=== PATIENT | male | born 1935 | race African-American/Black ===

== ENCOUNTER 2018-10-19 14:59 | Inpatient (IN) | payer MEDICARE, OTHER ==
[~2018-10-19] VITALS: Ht 172.7 cm; Wt 53.5 kg
[~2018-10-19 14:59] MED LIST: UNOBMED
--- NOTE | 2018-10-19 15:09 | Emergency Room Report ---
History of Present Illness General Chief Complaint: Syncope Source: Family Member, EMS Present Illness HPI Patient presents with altered mental status. Apparently his baseline is much more active than today. He was out walking on his own. There is no suggestion of any trauma. The patient states he is thirsty. It's unknown whether he ingested any other substances. His glucose in the field was 115. The patient was with his family and they're not here. Family here and they stated that he's had 2 episodes like this in the past. He was hospitalized in July and September. Both times he was dehydrated but also had elevated troponin with normal renal function. There were talking about doing catheterization and stent but the decided not to because of his age. The patient's on Seroquel and the dose has not changed for the last 2 months. Hospitalized last year for lower GI bleed. He was taking 2 baby aspirins at that time. He was reduced to 1 after that. They state difficult to get him to take oral intake. The last time they knowing moved his bowels was on Saturday but uncertain if it's been more than that. Patient hasn't an occasional cough but no vomiting. He has a foul odor to his urine but when they checked his urine it's usually clear. History of hypertension History of atrial fibrillation - He is on aspirin. There were considering Pradaxa or Coumadin but he is a fall risk and so they've kept him on aspirin only. History of reflux. Taking omeprazole Allergies: Coded Allergies: PENICILLINS (Verified Allergy, Unknown, 01/30/16) Uncoded Allergies: PENICLLINS (Allergy, Unknown, 10/19/18) Patient History Limited by: medical condition Past Medical History: see triage record, old chart reviewed - 2015 Social History: Denies: smoking, alcohol use, drug use Social History Narrative lives with family Reviewed Nursing Documentation: PMH: Agreed; PSxH: Agreed Nursing Documentation-PM Past Medical History: No History, Except For Hx Cardiac Problems: Yes Hx Hypertension: Yes History Of Psychiatric Problem: Yes Hx Neurological Problems: Yes - Dementia Hx Cerebrovascular Accident: Yes Review of Systems All Other Systems: limited Physical Exam Vital Signs Date Time Temp Pulse Resp B/P (MAP) Pulse Ox O2 Delivery O2 Flow Rate FiO2 10/19/18 14:55 96.4 65 14 106/52 95 Room Air Sp02 EP Interpretation: reviewed, normal General Appearance: well appearing, no apparent distress, other - GCS 13 Head: normocephalic Eyes: bilateral eye normal inspection, bilateral eye PERRL ENT: dry mucus membranes Neck: supple Respiratory: lungs clear, normal breath sounds Cardiovascular #1: regular rate, rhythm Cardiovascular #2: 2+ radial (R) Gastrointestinal: normal inspection, normal bowel sounds, non tender, no mass, non-distended Musculoskeletal: back normal, normal range of motion Neurologic: responsive, DTRs symmetric, sensory intact, motor weakness - All 4 Psychiatric: depressed affect Skin: normal inspection - Slightly pale, warm/dry Medical Decision Making Diagnostic Impression: Primary Impression: Altered mental status Qualified Codes: R40.1 - Stupor Additional Impressions: Renal insufficiency Dehydration Elevated troponin ER Course Patient presents with altered mental status with decreased mentation from baseline. Differential includes dehydration, occult infection, ingestion of other substances, electrolyte imbalance, brain bleed amongst others. Evaluation will be with EKG, chest x-ray, CT of the head and labs. The patient appears dehydrated and will receive IV hydration. 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 EKG NSR no acute changes. CXR neg. CT with 2 prior infarcts. Called with minimally elevated troponin. Aspirin ordered. Normal WBC. Elevated BUN creat. UA clear. Improved with IV hydration. Admit tele Dr. Garcia. Laboratory Tests Test 10/19/18 15:00 10/19/18 15:25 White Blood Count 3.6 K/UL (4.8-10.8) L Red Blood Count 4.90 M/UL (4.70-6.10) Hemoglobin 11.6 G/DL (14.2-18.0) L Hematocrit 37.9 % (42.0-52.0) L Mean Corpuscular Volume 77 FL (80-99) L Mean Corpuscular Hemoglobin 23.7 PG (27.0-31.0) L Mean Corpuscular Hemoglobin Concent 30.6 G/DL (32.0-36.0) L Red Cell Distribution Width 13.8 % (11.6-14.8) Platelet Count 124 K/UL (150-450) L Mean Platelet Volume 10.9 FL (6.5-10.1) H Neutrophils (%) (Auto) 41.7 % (45.0-75.0) L Lymphocytes (%) (Auto) 47.4 % (20.0-45.0) H Monocytes (%) (Auto) 8.2 % (1.0-10.0) Eosinophils (%) (Auto) 1.8 % (0.0-3.0) Basophils (%) (Auto) 0.9 % (0.0-2.0) Sodium Level 143 MMOL/L (136-145) Potassium Level 4.3 MMOL/L (3.5-5.1) Chloride Level 106 MMOL/L (98-107) Carbon Dioxide Level 32 MMOL/L (21-32) Anion Gap 5 mmol/L (5-15) Blood Urea Nitrogen 30 mg/dL (7-18) H Creatinine 1.7 MG/DL (0.55-1.30) H Estimate Glomerular Filtration Rate mL/min (>60) Glucose Level 116 MG/DL (74-106) H Lactic Acid Level 1.60 mmol/L (0.4-2.0) Calcium Level 9.6 MG/DL (8.5-10.1) Total Bilirubin 0.3 MG/DL (0.2-1.0) Aspartate Amino Transferase (AST) 15 U/L (15-37) Alanine Aminotransferase (ALT) 25 U/L (12-78) Alkaline Phosphatase 77 U/L (46-116) Ammonia 12 umol/L (11-32) Total Creatine Kinase 68 U/L (26-308) Troponin I 0.091 ng/mL (0.000-0.056) Total Protein 7.1 G/DL (6.4-8.2) Albumin 3.6 G/DL (3.4-5.0) Globulin 3.5 g/dL Albumin/Globulin Ratio 1.0 (1.0-2.7) Thyroid Stimulating Hormone (TSH) 0.939 uiU/mL (0.358-3.740) Acetaminophen Level < 2 MCG/ML (10-30) L Serum Alcohol < 3 mg/dL Urine Color Yellow Urine Appearance Clear Urine pH 5 (4.5-8.0) Urine Specific [place] 1.020 (1.005-1.035) Urine Protein 1+ (NEGATIVE) H Urine Glucose (UA) Negative (NEGATIVE) Urine Ketones Negative (NEGATIVE) Urine Blood Negative (NEGATIVE) Urine Nitrite Negative (NEGATIVE) Urine Bilirubin Negative (NEGATIVE) Urine Urobilinogen Normal MG/DL (0.0-1.0) Urine Leukocyte Esterase Negative (NEGATIVE) Urine RBC 0-2 /HPF (0 - 0) H Urine WBC 2-4 /HPF (0 - 0) Urine Squamous Epithelial Cells None /LPF (NONE/OCC) Urine Bacteria Few /HPF (NONE) Urine Fine Granular Casts 2-4 /LPF (NONE) H Urine Osmolality Pending Urine Random Sodium 85 mmol/L (20-110) Urine Creatinine 226.5 MG/DL (30.0-125.0) H Urine Opiates Screen Negative (NEGATIVE) Urine Barbiturates Screen Negative (NEGATIVE) Phencyclidine (PCP) Screen Negative (NEGATIVE) Urine Amphetamines Screen Negative (NEGATIVE) Urine Benzodiazepines Screen Negative (NEGATIVE) Urine Cocaine Screen Negative (NEGATIVE) Urine Marijuana (THC) Screen Negative (NEGATIVE) EKG Diagnostic Results Rate: normal Rhythm: NSR ST Segments: no acute changes ASA given to the pt in ED: Yes Rhythm Strip Diag. Results EP Interpretation: yes Rhythm: NSR, no PVC's, no ectopy Chest X-Ray Diagnostic Results Chest X-Ray Diagnostic Results : Chest X-Ray Ordered: Yes # of Views/Limited/Complete: 1 View Indication: Other EP Interpretation: Yes Interpretation: no consolidation, no effusion, no pneumothorax Impression: No acute disease Electronically Signed by: Electronically signed by Feng Elias MD CT/MRI/US Diagnostic Results CT/MRI/US Diagnostic Results : Imaging Test Ordered: head Impression R frontal and occipital strokes Last Vital Signs Date Time Temp Pulse Resp B/P (MAP) Pulse Ox O2 Delivery O2 Flow Rate FiO2 10/20/18 00:00 97.8 71 20 120/62 (81) 98 10/19/18 21:00 Room Air 10/19/18 20:41 21 Status: improved Disposition: ADMITTED INPATIENT Condition: Serious Feng Elias MD Oct 19, 2018 15:09
[2018-10-19 15:12] VITALS: BP 109/46
--- NOTE | 2018-10-19 15:15 | NUR ---
ED Nurse Note:pt. was BIBA from home with syncopal episode, no fall or head injury was reported, pt. is A/Ox1 not able to ambulate at this time, hx of dementia, blood was sent to labs, IV fluids administered
--- NOTE | 2018-10-19 15:27 | NUR ---
ED Nurse Note:urine sent to labs
[2018-10-19] MEDS ORDERED: ASPIRIN81 MG ORAL (15:32)
[2018-10-19] MEDS ORDERED: LISINOPRIL20 MG ORAL (15:32)
[2018-10-19] MEDS ORDERED: SEROQUEL100 MG ORAL (15:32)
[2018-10-19] MEDS ORDERED: CELEXA20 MG ORAL (15:32)
[2018-10-19] MEDS ORDERED: SEROQUEL25 MG ORAL (15:32)
[2018-10-19] MEDS ORDERED: AMLODIPINE BESYL5 MG ORAL (15:32)
[2018-10-19] MEDS ORDERED: PRILOSEC OTC20 MG ORAL (15:32)
[2018-10-19] MEDS ORDERED: MULTIVITAMINS1 EAC2 ORAL (15:32)
[2018-10-19] MEDS ORDERED: ZYRTEC10 MG ORAL (15:32)
[2018-10-19 15:41] LABS: BASOPHILS % (AUTO) 0.9 % (0.0-2.0); EOSINOPHILS % (AUTO) 1.8 % (0.0-3.0); HEMATOCRIT 37.9 % (42.0-52.0); HEMOGLOBIN 11.6 G/DL (14.2-18.0); LYMPHOCYTES % (AUTO) 47.4 % (20.0-45.0); MEAN CORPUSCULAR VOLUME 77 FL (80-99); MONOCYTES % (AUTO) 8.2 % (1.0-10.0); NEUTROPHILS % (AUTO) 41.7 % (45.0-75.0); PLATELET COUNT 124 K/UL (150-450); RED CELL DISTRIBUTION WIDTH 13.8 % (11.6-14.8); WHITE BLOOD COUNT 3.6 K/UL (4.8-10.8)
[2018-10-19 15:57] LABS: APPEARANCE,URINE CLEAR; BILIRUBIN, URINE NEGATIVE (NEGATIVE); GLUCOSE, URINE (UA) NEGATIVE (NEGATIVE); KETONES,URINE NEGATIVE (NEGATIVE); LEUKOCYTE ESTERASE ,URINE NEGATIVE (NEGATIVE); NITRITE,URINE NEGATIVE (NEGATIVE); PH,URINE 5 (4.5-8.0); PROTEIN,URINE 1+ (NEGATIVE); UROBILINOGEN,URINE NORMAL MG/DL (0.0-1.0)
[2018-10-19 15:59] LABS: COLOR,URINE YELLOW
[2018-10-19 16:05] LABS: ANION GAP 5 mmol/L (5-15); BLOOD UREA NITROGEN 30 mg/dL (7-18); CALCIUM 9.6 MG/DL (8.5-10.1); CARBON DIOXIDE 32 MMOL/L (21-32); CHLORIDE 106 MMOL/L (98-107); CREATININE 1.7 MG/DL (0.55-1.30); POTASSIUM 4.3 MMOL/L (3.5-5.1); SODIUM 143 MMOL/L (136-145)
[2018-10-19 16:07] LABS: AMMONIA 12 umol/L (11-32)
[2018-10-19 16:20] LABS: ALANINE AMINOTRANSFERASE 25 U/L (12-78); ALBUMIN 3.6 G/DL (3.4-5.0); ALKALINE PHOSPHATASE 77 U/L (46-116); ASPARTATE AMINO TRANSFERASE 15 U/L (15-37); BILIRUBIN,TOTAL 0.3 MG/DL (0.2-1.0); CREATINE KINASE 68 U/L (26-308)
[2018-10-19 17:34] VITALS: BP 126/69
--- NOTE | 2018-10-19 17:36 | NUR ---
ED Nurse Note:called report to tele pt. Danica was taken to tele
[2018-10-19] MEDS ORDERED: Albuterol/Ipratropium 3ml neb HHN PRN (18:00)
[2018-10-19] MEDS ORDERED: Nitroglycerin Subl 0.4mg tab SL PRN (18:00)
[2018-10-19] MEDS ORDERED: LORazepam Inj 2mg/ml 1ml IV PRN (18:00)
[2018-10-19] MEDS ORDERED: Morphine Sulfate 2mg/ml Inj(IV/IM USE ONLY) IVP PRN (18:00)
[2018-10-19] MEDS ORDERED: Miralax 17gm pkt ORAL PRN (18:00)
[2018-10-19] MEDS ORDERED: Mylanta II UD 30ml ORAL PRN (18:00)
[2018-10-19] MEDS ORDERED: Promethazine/Codeine 5ml UD ORAL PRN (18:00)
--- NOTE | 2018-10-19 18:09 | NUR ---
NURSE NOTES: received patient report from ruth rn from er. patient came in via gurney. with family members. per family member patient is confused and was trying to get off the bed and requested a room by the station. gambling monitor initiated. Iv line noted on the R AC. noted skin is intact. no belongings found. sent home. under the care of dr primo clark. will continue plan of care.
--- NOTE | 2018-10-19 18:15 | NUR ---
NURSE NOTES: letf a message to dr mendez regarding seroquel. per family member currently patient is taking seroquel 100mg AM, 50mg lunchtime and 100mg at night. family member also requesting that no caffeine, no crackers, no toast, no crumbly food should be given to patient.will inform MD.
[2018-10-19] MEDS: D5 1/2NS 1,000 ML IV SCH (18:17)
[2018-10-19 18:25] VITALS: BP 127/75
--- NOTE | 2018-10-19 19:31 | NUR ---
HAND-OFF: Report given to yu ly.
--- NOTE | 2018-10-19 19:47 | NUR ---
NURSE NOTES: RECEIVED PATIENT RESTING IN BED, NO COMPLAINTS OF PAIN AT THIS TIME. FALL AND ASPIRATION PRECAUTIONS IN PLACE: CALL LIGHT AND BEDSIDE TABLE WITHIN REACH, BED IN LOW POSITION AND BED ALARM ON, HOB ELEVATED. WILL CONTINUE WITH PLAN OF CARE.
[2018-10-19 20:00] VITALS: BP 127/74
[2018-10-19] MEDS: Heparin 5000 units/ml inj SUBQ SCH (21:36)
[2018-10-20] VITALS: BP 120/62
[2018-10-20 04:00] VITALS: BP 121/63
[2018-10-20 07:34] LABS: HEMOGLOBIN 10.6 G/DL (14.2-18.0); MEAN CORPUSCULAR VOLUME 78 FL (80-99); PLATELET COUNT 114 K/UL (150-450); RED BLOOD COUNT 4.38 M/UL (4.70-6.10); RED CELL DISTRIBUTION WIDTH 13.9 % (11.6-14.8); WHITE BLOOD COUNT 3.9 K/UL (4.8-10.8)
[2018-10-20 07:35] LABS: INR 1.1 (0.9-1.1)
--- NOTE | 2018-10-20 07:40 | NUR ---
HAND-OFF: Report given to CHRISTOPHE ANGEL. PATIENT RESTING IN BED, NO SIGNS OF DISTRESS NOTED.
--- NOTE | 2018-10-20 07:49 | NUR ---
NURSE NOTES: Received patient and report from CHRISTOPHE Nascimento in bed. Patient appears to be confused, reoriented patient. Patient is alert and oriented x2. IV is intact and patent and very positional, fluids running at 50cc/hr. Bed is in lowest position and brakes engaged for safety. Bedside rails on x3. Will continue with the plan of care.
[2018-10-20 07:50] LABS: ALANINE AMINOTRANSFERASE 22 U/L (12-78); ALBUMIN 3.1 G/DL (3.4-5.0); ALKALINE PHOSPHATASE 69 U/L (46-116); ANION GAP 6 mmol/L (5-15); ASPARTATE AMINO TRANSFERASE 15 U/L (15-37); BILIRUBIN,TOTAL 0.3 MG/DL (0.2-1.0); BLOOD UREA NITROGEN 21 mg/dL (7-18); CALCIUM 9.1 MG/DL (8.5-10.1); CARBON DIOXIDE 30 MMOL/L (21-32); CHLORIDE 109 MMOL/L (98-107); CHOLESTEROL 126 MG/DL (< 200); CREATININE 1.2 MG/DL (0.55-1.30); HDL CHOLESTEROL 54 MG/DL (40-60); POTASSIUM 4.6 MMOL/L (3.5-5.1); SODIUM 145 MMOL/L (136-145); TRIGLYCERIDES 53 MG/DL (30-150)
--- NOTE | 2018-10-20 07:57 | NUR ---
CASE MANAGEMENT:REVIEW 83 YR OLD MALE BIBA FROM [facility]; witnessed syncopal episode SI: AMS. RENAL INSUFF. DEHYDRATION ELEVATED TROPONIN 96.5 65 14 106/52 95% RA PLT-124 BRANDIE+30 CR+1.7 TROPONIN(+) 0.091 IS: 1L NS BOLUS ASA IN CT HEAD CXR ; TO TELEMETRY IS: NORVASC PO QD ASA PO QD LISINOPRIL PO QD HEPARIN SQ Q12 IVF@50/HR PLAN: CAROTID DUPLEX VENOUS DUPLEX 2DECHO INTERQUAL CRITERIA MET
[2018-10-20 08:00] VITALS: BP 136/74
[2018-10-20 08:01] LABS: AMMONIA 21 umol/L (11-32)
[2018-10-20] MEDS: Heparin 5000 units/ml inj SUBQ SCH ×2 (08:12→20:39)
[2018-10-20] MEDS: Lisinopril 20mg tab ORAL SCH (08:13)
[2018-10-20] MEDS: Aspirin Baby 81mg ORAL SCH (08:13)
[2018-10-20] MEDS: Citalopram Hydrobromide 10mg Tab ORAL SCH (08:13)
--- NOTE | 2018-10-20 10:40 | Consultation ---
History of Present Illness General Date patient seen: Oct 20, 2018 Chief Complaint: Syncope Reason for Consultation: inpatient management Present Illness HPI 83 year old male with hx of Afib, CAD, recent HI, refused coronary Stent, with hx of GI bleeding, brought in by paramedics with [facility] of [facility]. Pt had had an syncopal episode while sitting and regained his consciousness slowly. His troponin was elevated and he is admitted to telemetry for further management. Allergies: Coded Allergies: PENICILLINS (Verified Allergy, Unknown, 01/30/16) Uncoded Allergies: PENICLLINS (Allergy, Unknown, 10/19/18) Medication History Scheduled Amlodipine Besylate* (Amlodipine Besylate*), 5 MG ORAL DAILY, (Reported) Aspirin* (Aspirin*), 81 MG ORAL DAILY, (Reported) Cetirizine Hcl* (Zyrtec*), 10 MG ORAL DAILY, (Reported) Citalopram Hydrobromide* (Celexa*), 20 MG ORAL DAILY, (Reported) Lisinopril (Lisinopril*), 20 MG ORAL DAILY, (Reported) Multivitamins* (Multivitamins*), 1 TAB ORAL DAILY, (Reported) Omeprazole Magnesium (Prilosec Otc), 20 MG ORAL DAILY, (Reported) Quetiapine Fumarate* (Seroquel*), 100 MG ORAL TWICE A DAY, (Reported) Quetiapine Fumarate* (Seroquel*), 50 MG ORAL DAILY, (Reported) Miscellaneous Medications Unable to Obtain Medications (Unable To Obtain Meds), (Reported) Patient History Healthcare decision maker Resuscitation status Full Code Advanced Directive on File No Past Medical/Surgical History Past Medical/Surgical History: (1) ATN (acute tubular necrosis) (2) Advanced dementia Review of Systems All Other Systems: negative except mentioned in HPI Physical Exam General Appearance: WD/WN, no apparent distress Lines, tubes and drains: peripheral HEENT: normocephalic, atraumatic Neck: non-tender, normal alignment Respiratory/Chest: chest wall non-tender, lungs clear Breasts: no masses Cardiovascular/Chest: normal peripheral pulses Abdomen: normal bowel sounds, non tender Genitourinary/Rectal: normal genital exam Extremities: normal range of motion Last 24 Hour Vital Signs Date Time Temp Pulse Resp B/P (MAP) Pulse Ox O2 Delivery O2 Flow Rate FiO2 10/20/18 09:00 Room Air 10/20/18 08:14 75 136/74 10/20/18 08:13 136/74 10/20/18 08:00 97.6 75 20 136/74 (94) 99 10/20/18 08:00 70 10/20/18 04:00 65 10/20/18 04:00 98.1 68 20 121/63 (82) 97 10/20/18 00:00 97.8 71 20 120/62 (81) 98 10/20/18 00:00 69 10/19/18 21:00 Room Air 10/19/18 20:41 73 16 Room Air 21 10/19/18 20:00 98.0 89 20 127/74 (91) 97 10/19/18 20:00 77 10/19/18 18:42 Room Air 10/19/18 18:25 97.1 89 127/75 (92) 10/19/18 17:34 79 15 126/69 100 Room Air 10/19/18 17:34 79 17 109/46 97 Room Air 10/19/18 15:12 69 17 109/46 97 Room Air 10/19/18 14:55 96.4 65 14 106/52 95 Room Air Intake and Output 10/19/18 10/20/18 19:00 07:00 Intake Total 10 ml 600 ml Output Total 600 ml Balance 10 ml 0 ml Intake IV Total 10 ml 600 ml Output Urine Total 600 ml # Voids 1 3 # Bowel Movements 1 Laboratory Tests Test 10/19/18 15:00 10/19/18 15:25 10/20/18 06:50 White Blood Count 3.6 K/UL (4.8-10.8) L 3.9 K/UL (4.8-10.8) L Red Blood Count 4.90 M/UL (4.70-6.10) 4.38 M/UL (4.70-6.10) L Hemoglobin 11.6 G/DL (14.2-18.0) L 10.6 G/DL (14.2-18.0) L Hematocrit 37.9 % (42.0-52.0) L 34.0 % (42.0-52.0) L Mean Corpuscular Volume 77 FL (80-99) L 78 FL (80-99) L Mean Corpuscular Hemoglobin 23.7 PG (27.0-31.0) L 24.2 PG (27.0-31.0) L Mean Corpuscular Hemoglobin Concent 30.6 G/DL (32.0-36.0) L 31.1 G/DL (32.0-36.0) L Red Cell Distribution Width 13.8 % (11.6-14.8) 13.9 % (11.6-14.8) Platelet Count 124 K/UL (150-450) L 114 K/UL (150-450) L Mean Platelet Volume 10.9 FL (6.5-10.1) H 9.7 FL (6.5-10.1) Neutrophils (%) (Auto) 41.7 % (45.0-75.0) L % (45.0-75.0) Lymphocytes (%) (Auto) 47.4 % (20.0-45.0) H % (20.0-45.0) Monocytes (%) (Auto) 8.2 % (1.0-10.0) % (1.0-10.0) Eosinophils (%) (Auto) 1.8 % (0.0-3.0) % (0.0-3.0) Basophils (%) (Auto) 0.9 % (0.0-2.0) % (0.0-2.0) Sodium Level 143 MMOL/L (136-145) 145 MMOL/L (136-145) Potassium Level 4.3 MMOL/L (3.5-5.1) 4.6 MMOL/L (3.5-5.1) Chloride Level 106 MMOL/L (98-107) 109 MMOL/L (98-107) H Carbon Dioxide Level 32 MMOL/L (21-32) 30 MMOL/L (21-32) Anion Gap 5 mmol/L (5-15) 6 mmol/L (5-15) Blood Urea Nitrogen 30 mg/dL (7-18) H 21 mg/dL (7-18) H Creatinine 1.7 MG/DL (0.55-1.30) H 1.2 MG/DL (0.55-1.30) Estimat Glomerular Filtration Rate mL/min (>60) mL/min (>60) Glucose Level 116 MG/DL (74-106) H 78 MG/DL (74-106) Lactic Acid Level 1.60 mmol/L (0.4-2.0) Calcium Level 9.6 MG/DL (8.5-10.1) 9.1 MG/DL (8.5-10.1) Total Bilirubin 0.3 MG/DL (0.2-1.0) 0.3 MG/DL (0.2-1.0) Aspartate Amino Transf (AST/SGOT) 15 U/L (15-37) 15 U/L (15-37) Alanine Aminotransferase (ALT/SGPT) 25 U/L (12-78) 22 U/L (12-78) Alkaline Phosphatase 77 U/L (46-116) 69 U/L (46-116) Ammonia 12 umol/L (11-32) 21 umol/L (11-32) Total Creatine Kinase 68 U/L (26-308) Troponin I 0.091 ng/mL (0.000-0.056) Total Protein 7.1 G/DL (6.4-8.2) 6.3 G/DL (6.4-8.2) L Albumin 3.6 G/DL (3.4-5.0) 3.1 G/DL (3.4-5.0) L Globulin 3.5 g/dL 3.2 g/dL Albumin/Globulin Ratio 1.0 (1.0-2.7) 1.0 (1.0-2.7) Thyroid Stimulating Hormone (TSH) 0.939 uiU/mL (0.358-3.740) 0.664 uiU/mL (0.358-3.740) Acetaminophen Level < 2 MCG/ML (10-30) L Serum Alcohol < 3 mg/dL Urine Color Yellow Urine Appearance Clear Urine pH 5 (4.5-8.0) Urine Specific [place] 1.020 (1.005-1.035) Urine Protein 1+ (NEGATIVE) H Urine Glucose (UA) Negative (NEGATIVE) Urine Ketones Negative (NEGATIVE) Urine Blood Negative (NEGATIVE) Urine Nitrite Negative (NEGATIVE) Urine Bilirubin Negative (NEGATIVE) Urine Urobilinogen Normal MG/DL (0.0-1.0) Urine Leukocyte Esterase Negative (NEGATIVE) Urine RBC 0-2 /HPF (0 - 0) H Urine WBC 2-4 /HPF (0 - 0) Urine Squamous Epithelial Cells None /LPF (NONE/OCC) Urine Bacteria Few /HPF (NONE) Urine Fine Granular Casts 2-4 /LPF (NONE) H Urine Osmolality 846 mOsm/kg (429-449) H Urine Random Sodium 85 mmol/L (20-110) Urine Creatinine 226.5 MG/DL (30.0-125.0) H Urine Opiates Screen Negative (NEGATIVE) Urine Barbiturates Screen Negative (NEGATIVE) Phencyclidine (PCP) Screen Negative (NEGATIVE) Urine Amphetamines Screen Negative (NEGATIVE) Urine Benzodiazepines Screen Negative (NEGATIVE) Urine Cocaine Screen Negative (NEGATIVE) Urine Marijuana (THC) Screen Negative (NEGATIVE) Differential Total Cells Counted 100 Neutrophils % (Manual) 54 % (45-75) Lymphocytes % (Manual) 40 % (20-45) Monocytes % (Manual) 4 % (1-10) Eosinophils % (Manual) 2 % (0-3) Basophils % (Manual) 0 % (0-2) Band Neutrophils 0 % (0-8) Platelet Estimate Decreased L Platelet Morphology Normal Hypochromasia 1+ Prothrombin Time 11.7 SEC (9.30-11.50) H Prothromb Time International Ratio 1.1 (0.9-1.1) Activated Partial Thromboplast Time 29 SEC (23-33) Triglycerides Level 53 MG/DL (30-150) Cholesterol Level 126 MG/DL (< 200) LDL Cholesterol 65 mg/dL (<100) HDL Cholesterol 54 MG/DL (40-60) Cholesterol/HDL Ratio 2.3 (3.3-4.4) L Height (Feet): 5 Height (Inches): 8.00 Weight (Pounds): 140 Medications Current Medications Medications (Trade) Dose Ordered Sig/Lea Route PRN Reason Start Time Stop Time Status Last Admin Dose Admin Acetaminophen (Tylenol) 650 mg Q4H PRN ORAL fever 10/19/18 18:00 11/18/18 17:59 Al Hydroxide/Mg Hydroxide (Mylanta II) 30 ml Q6H PRN ORAL dyspepsia 10/19/18 18:00 11/18/18 17:59 Albuterol/ Ipratropium (Albuterol/ Ipratropium) 3 ml Q4H PRN HHN Shortness of Breath 10/19/18 18:00 10/24/18 17:59 Amlodipine Besylate (Norvasc) 5 mg DAILY ORAL 10/20/18 09:00 11/19/18 08:59 10/20/18 08:14 Aspirin (ASA) 81 mg DAILY ORAL 10/20/18 09:00 11/19/18 08:59 10/20/18 08:13 Citalopram Hydrobromide (celeXA) 20 mg DAILY ORAL 10/20/18 09:00 11/19/18 08:59 10/20/18 08:13 Clonidine HCl (Catapres Tab) 0.1 mg Q4H PRN ORAL For High Blood Pressure 10/19/18 18:00 11/18/18 17:59 Dextrose (Dextrose 50%) 25 ml Q30M PRN IV Hypoglycemia 10/19/18 18:00 11/18/18 17:59 Dextrose (Dextrose 50%) 50 ml Q30M PRN IV Hypoglycemia 10/19/18 18:00 11/18/18 17:59 Dextrose/Sodium Chloride 1,000 ml @ 50 mls/hr Q20H IV 10/19/18 17:54 11/18/18 17:53 10/19/18 18:17 Heparin Sodium (Porcine) (Heparin 5000 units/ml) 5,000 units EVERY 12 HOURS SUBQ 10/19/18 21:00 11/18/18 20:59 10/19/18 21:36 Lisinopril (Prinivil) 20 mg DAILY ORAL 10/20/18 09:00 11/19/18 08:59 10/20/18 08:13 Lorazepam (Ativan 2mg/ml 1ml) 0.5 mg Q4H PRN IV For Anxiety 10/19/18 18:00 10/26/18 17:59 Morphine Sulfate (Morphine Sulfate) 1 mg Q4H PRN IVP For Pain 7-10 10/19/18 18:00 10/26/18 17:59 Nitroglycerin (Ntg) 0.4 mg Q5M X 3 DOSES PRN SL Prn Chest Pain 10/19/18 18:00 11/18/18 17:59 Ondansetron HCl (Zofran) 4 mg Q6H PRN IVP Nausea & Vomiting 10/19/18 18:00 11/18/18 17:59 Polyethylene Glycol (Miralax) 17 gm HSPRN PRN ORAL Constipation 10/19/18 18:00 11/18/18 17:59 Promethazine HCl/ Codeine (Phenergan with Codeine) 5 ml Q4H PRN ORAL For Cough 10/19/18 18:00 11/18/18 17:59 Quetiapine Fumarate (SEROquel) 50 mg QLUNCH ORAL 10/20/18 11:30 11/19/18 11:29 Quetiapine Fumarate (SEROquel) 100 mg BID ORAL 10/19/18 20:02 11/18/18 20:01 10/20/18 08:13 Temazepam (Restoril) 15 mg HSPRN PRN ORAL Insomnia 10/19/18 18:00 10/26/18 17:59 Assessment/Plan Problem List: (1) NSTEMI (non-ST elevated myocardial infarction) ICD Codes: I21.4 - Non-ST elevation (NSTEMI) myocardial infarction SNOMED: 42512510, 079568702 (2) Protein-calorie malnutrition, severe ICD Codes: E43 - Unspecified severe protein-calorie malnutrition SNOMED: 385105766, 541635866, 305945616 (3) ATN (acute tubular necrosis) ICD Codes: N17.0 - Acute kidney failure with tubular necrosis SNOMED: 19099441 (4) Advanced dementia ICD Codes: F03.90 - Unspecified dementia without behavioral disturbance SNOMED: 28611901 Assessment/Plan serial ekg, troponin echocardiogram iv fluids renal f/u pt/ot evaluation dvt prophylaxis Linda Prater MD Oct 20, 2018 10:40
--- NOTE | 2018-10-20 11:15 | Diagnostic Imaging Report ---
Indications: Altered level of consciousness Technique: Spiral acquisitions obtained through the brain. Angled axial and coronal 5 x 5 mm slices were reconstructed. Total dose length product 1245.89 mGycm. CTDI vol(s) 70.38 mGy. Dose reduction achieved using automated exposure control Comparison: None. Findings: There is age-related enlargement of the ventricles and extra axial CSF spaces. There is encephalomalacia of the right occipital lobe. Old lacunar infarcts are seen in the left thibodeaux radiata extending into the lentiform nucleus, the anterior right lentiform nucleus, and right anterior basal ganglia, the latter resulting in some ex vacuo dilatation of the frontal horn of the right lateral ventricle. There is extensive periventricular deep white matter low-attenuation, consistent with chronic microvascular ischemic change. No acute intracranial hemorrhage nor edema. No mass effect nor midline shift. Otherwise normal mckay-white differentiation. Intact calvarium. Visualized orbits and sinuses are unremarkable. Impression: Multiple old infarcts as described, including old right occipital infarct, bilateral old lacunar infarcts Other chronic and age-related changes as described. Negative for acute intracranial bleed or mass effect This agrees with the preliminary interpretation provided overnight by [facility] teleradiology service. The CT scanner at [facility] is accredited by the [employer] and the scans are performed using protocols designed to limit radiation exposure to as low as reasonably achievable to attain images of sufficient resolution adequate for diagnostic evaluation.
[2018-10-20 12:00] VITALS: BP 128/68
--- NOTE | 2018-10-20 12:13 | Diagnostic Imaging Report ---
Indication: Chest pain Technique: One view of the chest Comparison: none Findings: No acute infiltrates, effusions, or congestion. Tortuous calcified aorta. Normal heart size. Upper mediastinum unremarkable. There are degenerative changes of both shoulders incidentally noted Impression: No acute process.
--- NOTE | 2018-10-20 12:42 | Nephrology Progress Note ---
Assessment/Plan Assessment [id number] full note dictated Objective Objective Last 24 Hour Vital Signs Date Time Temp Pulse Resp B/P (MAP) Pulse Ox O2 Delivery O2 Flow Rate FiO2 10/20/18 09:00 Room Air 10/20/18 08:14 75 136/74 10/20/18 08:13 136/74 10/20/18 08:00 97.6 75 20 136/74 (94) 99 10/20/18 08:00 70 10/20/18 04:00 65 10/20/18 04:00 98.1 68 20 121/63 (82) 97 10/20/18 00:00 97.8 71 20 120/62 (81) 98 10/20/18 00:00 69 10/19/18 21:00 Room Air 10/19/18 20:41 73 16 Room Air 21 10/19/18 20:00 98.0 89 20 127/74 (91) 97 10/19/18 20:00 77 10/19/18 18:42 Room Air 10/19/18 18:25 97.1 89 127/75 (92) 10/19/18 17:34 79 15 126/69 100 Room Air 10/19/18 17:34 79 17 109/46 97 Room Air 10/19/18 15:12 69 17 109/46 97 Room Air 10/19/18 14:55 96.4 65 14 106/52 95 Room Air Intake and Output 10/19/18 10/20/18 19:00 07:00 Intake Total 10 ml 600 ml Output Total 600 ml Balance 10 ml 0 ml Intake IV Total 10 ml 600 ml Output Urine Total 600 ml # Voids 1 3 # Bowel Movements 1 Laboratory Tests 10/19/18 15:00: White Blood Count 3.6L, Red Blood Count 4.90, Hemoglobin 11.6L, Hematocrit 37.9L , Mean Corpuscular Volume 77L, Mean Corpuscular Hemoglobin 23.7L, Mean Corpuscular Hemoglobin Concent 30.6L, Red Cell Distribution Width 13.8, Platelet Count 124L, Mean Platelet Volume 10.9H, Neutrophils (%) (Auto) 41.7L, Lymphocytes (%) (Auto) 47.4H, Monocytes (%) (Auto) 8.2, Eosinophils (%) (Auto) 1.8, Basophils (%) (Auto) 0.9, Sodium Level 143, Potassium Level 4.3, Chloride Level 106, Carbon Dioxide Level 32, Anion Gap 5, Blood Urea Nitrogen 30H, Creatinine 1.7H, Estimat Glomerular Filtration Rate , Glucose Level 116H, Lactic Acid Level 1.60, Calcium Level 9.6, Total Bilirubin 0.3, Aspartate Amino Transf (AST/SGOT) 15, Alanine Aminotransferase (ALT/SGPT) 25, Alkaline Phosphatase 77, Ammonia 12, Total Creatine Kinase 68, Troponin I 0.091H, Total Protein 7.1, Albumin 3.6, Globulin 3.5, Albumin/Globulin Ratio 1.0, Thyroid Stimulating Hormone (TSH) 0.939, Acetaminophen Level < 2L, Serum Alcohol < 3 10/19/18 15:25: Urine Color Yellow, Urine Appearance Clear, Urine pH 5, Urine Specific [place] 1.020, Urine Protein 1+H, Urine Glucose (UA) Negative, Urine Ketones Negative, Urine Blood Negative, Urine Nitrite Negative, Urine Bilirubin Negative, Urine Urobilinogen Normal, Urine Leukocyte Esterase Negative, Urine RBC 0-2H, Urine WBC 2-4, Urine Squamous Epithelial Cells None, Urine Bacteria Few, Urine Fine Granular Casts 2-4H, Urine Osmolality 846H, Urine Random Sodium 85, Urine Creatinine 226.5H, Urine Opiates Screen Negative, Urine Barbiturates Screen Negative, Phencyclidine (PCP) Screen Negative, Urine Amphetamines Screen Negative, Urine Benzodiazepines Screen Negative, Urine Cocaine Screen Negative, Urine Marijuana (THC) Screen Negative 10/20/18 06:50: White Blood Count 3.9L, Red Blood Count 4.38L, Hemoglobin 10.6L, Hematocrit 34.0L, Mean Corpuscular Volume 78L, Mean Corpuscular Hemoglobin 24.2L, Mean Corpuscular Hemoglobin Concent 31.1L, Red Cell Distribution Width 13.9, Platelet Count 114L, Mean Platelet Volume 9.7, Neutrophils (%) (Auto) , Lymphocytes (%) (Auto) , Monocytes (%) (Auto) , Eosinophils (%) (Auto) , Basophils (%) (Auto) , Sodium Level 145, Potassium Level 4.6, Chloride Level 109H, Carbon Dioxide Level 30, Anion Gap 6, Blood Urea Nitrogen 21H, Creatinine 1.2, Estimat Glomerular Filtration Rate , Glucose Level 78, Calcium Level 9.1, Total Bilirubin 0.3, Aspartate Amino Transf (AST/SGOT) 15, Alanine Aminotransferase (ALT/SGPT) 22, Alkaline Phosphatase 69, Ammonia 21, Total Protein 6.3L, Albumin 3.1L, Globulin 3.2, Albumin/Globulin Ratio 1.0, Thyroid Stimulating Hormone (TSH) 0.664, Differential Total Cells Counted 100, Neutrophils % (Manual) 54, Lymphocytes % (Manual) 40, Monocytes % (Manual) 4, Eosinophils % (Manual) 2, Basophils % (Manual) 0, Band Neutrophils 0, Platelet Estimate DecreasedL, Platelet Morphology Normal, Hypochromasia 1+, Prothrombin Time 11.7H, Prothromb Time International Ratio 1.1, Activated Partial Thromboplast Time 29, Triglycerides Level 53, Cholesterol Level 126, LDL Cholesterol 65, HDL Cholesterol 54, Cholesterol/HDL Ratio 2.3L Height (Feet): 5 Height (Inches): 8.00 Weight (Pounds): 140 Teodora Lewis MD Oct 20, 2018 12:42
[2018-10-20] MEDS: D5 1/2NS 1,000 ML IV SCH (13:12)
--- NOTE | 2018-10-20 15:14 | NUR ---
P.T Note: P.T evaluation completed and treatment initiated. Please refer to P.T evaluation for current functional status. Skilled P.T service is warranted to improve his balance, endurance and strength to increase level of mobility independence and safety during stay.Recommend home P.T at [place]. Thank you for this referral.
--- NOTE | 2018-10-20 15:29 | NUR ---
ST NOTE: BEDSIDE SWALLOW EVAL RECEIVED BEDSIDE SWALLOW EVAL ORDER CHART REVIEWED PRIOR THE EVALUATION PT IS A 83-YEAR-OLD MALE WHO WAS ADMITTED TO HOSPITAL FOR ALOC. DYSPHAGIA RISK FACTORS: H/O DEMENTIA, H/O MULTIPLE CVAs, H/O DYSPHAGIA, HTN, A-FIB, CAD, GERD(PER DAUGHTER). PER CXR: NO ACUTE PROCESS PER HEAD CT: MULTIPLE OLD INFARCTS, INCLUDING OLD R OCCIPITAL INFARCT, BILATERAL OLD LACUNAR INFARCTS. There is encephalomalacia of the right occipital lobe. Old lacunar infarcts are seen in the left thibodeaux radiata extending into the lentiform nucleus, the anterior right lentiform nucleus, and right anterior basal ganglia, the latter resulting in some ex vacuo dilatation of the frontal horn of the right lateral ventricle. PLOF: PT LIVES AT HOME WITH FAMILY. PER PT'S DAUGHTER, PT WAS ON SOFT, EASY CHEW DIET WITH THIN LIQUIDS. PER DAUGHTER, PT UNDERWENT MODIFIED BARIUM SWALLOW STUDY(MBSS) LAST YEAR, ASPIRATED WITH THIN(CUP) BY SELF DURING THE SEQUENTIAL SIPS. PT ALSO REQUIRED LIQUID WASH AFTER A FEW BITES. NO POLST WAS NOTED REGARDING TUBE FEEDING IF NEEDED. CURRENT STATUS: PT SEEN AT BEDSIDE IN LATE AM. ALERT, COOPERATIVE, FOLLOWS SIMPLE DIRECTIONS, CONFUSED. PT'S DAUGHTER IS AT BEDSIDE. PT HAS GOOD APPETITE. GIVEN PO TRIALS: THIN(CUP-SELF/STRAW-ONE SIP), NECTAR THICK(TSP) AND PUREE(TSP). PER DAUGHTER, DON'T GIVE PT CRACKER. 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 MILD INCREASED ORAL TRANSIT TIME AND OROPHARYNGEAL TRANSIT TIME, FAIR LARYNGEAL ELEVATION, NO OVERT S/S OF ASPIRATION. PT WAS ABLE TO DEMONSTRATE DRY SWALLOW WHEN REQUESTED. HAS RISK FOR (SILENT) ASPIRATION DUE TO PT HAS H/O DYSPHAGIA, DEMENTIA, H/O CVAs. RECOMMENDATIONS: 1. FOR QUALITY OF LIFE, SLOWLY INITIATE MECH SOFT(CHOPPED) WITH THIN LIQUIDS DIET 2. STRICT ASPIRATION/REFLUX PRECAUTIONS WITH 1TO1 FEEDING. 3. VIDEOSWALLOW STUDY IP OR OP. D/W PT AND PT'S DAUGHTER AND DR. TRUDY ERWIN. APPROVED FOR DIET. POSTED ASPIRATION/REFLUX PRECAUTIONS SIGN.
[2018-10-20 16:00] VITALS: BP 137/82
--- NOTE | 2018-10-20 17:57 | Consultation ---
History of Present Illness General Chief Complaint: Syncope Reason for Consultation: inpatient management Present Illness Allergies: Coded Allergies: PENICILLINS (Verified Allergy, Unknown, 01/30/16) Uncoded Allergies: PENICLLINS (Allergy, Unknown, 10/19/18) Medication History Scheduled Amlodipine Besylate* (Amlodipine Besylate*), 5 MG ORAL DAILY, (Reported) Aspirin* (Aspirin*), 81 MG ORAL DAILY, (Reported) Cetirizine Hcl* (Zyrtec*), 10 MG ORAL DAILY, (Reported) Citalopram Hydrobromide* (Celexa*), 20 MG ORAL DAILY, (Reported) Lisinopril (Lisinopril*), 20 MG ORAL DAILY, (Reported) Multivitamins* (Multivitamins*), 1 TAB ORAL DAILY, (Reported) Omeprazole Magnesium (Prilosec Otc), 20 MG ORAL DAILY, (Reported) Quetiapine Fumarate* (Seroquel*), 100 MG ORAL TWICE A DAY, (Reported) Quetiapine Fumarate* (Seroquel*), 50 MG ORAL DAILY, (Reported) Miscellaneous Medications Unable to Obtain Medications (Unable To Obtain Meds), (Reported) Patient History Healthcare decision maker Resuscitation status Full Code Advanced Directive on File No Physical Exam Last 24 Hour Vital Signs Date Time Temp Pulse Resp B/P (MAP) Pulse Ox O2 Delivery O2 Flow Rate FiO2 10/20/18 12:00 68 10/20/18 12:00 97.8 73 20 128/68 (88) 99 10/20/18 09:00 Room Air 10/20/18 08:14 75 136/74 10/20/18 08:13 136/74 10/20/18 08:00 97.6 75 20 136/74 (94) 99 10/20/18 08:00 70 10/20/18 04:00 65 10/20/18 04:00 98.1 68 20 121/63 (82) 97 10/20/18 00:00 97.8 71 20 120/62 (81) 98 10/20/18 00:00 69 10/19/18 21:00 Room Air 10/19/18 20:41 73 16 Room Air 21 10/19/18 20:00 98.0 89 20 127/74 (91) 97 10/19/18 20:00 77 10/19/18 18:42 Room Air 10/19/18 18:25 97.1 89 127/75 (92) Intake and Output 10/19/18 10/20/18 19:00 07:00 Intake Total 10 ml 600 ml Output Total 600 ml Balance 10 ml 0 ml IV Total 10 ml 600 ml Output Urine Total 600 ml # Voids 1 3 # Bowel Movements 1 Laboratory Tests Test 10/20/18 06:50 White Blood Count 3.9 K/UL (4.8-10.8) L Red Blood Count 4.38 M/UL (4.70-6.10) L Hemoglobin 10.6 G/DL (14.2-18.0) L Hematocrit 34.0 % (42.0-52.0) L Mean Corpuscular Volume 78 FL (80-99) L Mean Corpuscular Hemoglobin 24.2 PG (27.0-31.0) L Mean Corpuscular Hemoglobin Concent 31.1 G/DL (32.0-36.0) L Red Cell Distribution Width 13.9 % (11.6-14.8) Platelet Count 114 K/UL (150-450) L Mean Platelet Volume 9.7 FL (6.5-10.1) Neutrophils (%) (Auto) % (45.0-75.0) Lymphocytes (%) (Auto) % (20.0-45.0) Monocytes (%) (Auto) % (1.0-10.0) Eosinophils (%) (Auto) % (0.0-3.0) Basophils (%) (Auto) % (0.0-2.0) Differential Total Cells Counted 100 Neutrophils % (Manual) 54 % (45-75) Lymphocytes % (Manual) 40 % (20-45) Monocytes % (Manual) 4 % (1-10) Eosinophils % (Manual) 2 % (0-3) Basophils % (Manual) 0 % (0-2) Band Neutrophils 0 % (0-8) Platelet Estimate Decreased L Platelet Morphology Normal Hypochromasia 1+ Prothrombin Time 11.7 SEC (9.30-11.50) H Prothromb Time International Ratio 1.1 (0.9-1.1) Activated Partial Thromboplast Time 29 SEC (23-33) Sodium Level 145 MMOL/L (136-145) Potassium Level 4.6 MMOL/L (3.5-5.1) Chloride Level 109 MMOL/L (98-107) H Carbon Dioxide Level 30 MMOL/L (21-32) Anion Gap 6 mmol/L (5-15) Blood Urea Nitrogen 21 mg/dL (7-18) H Creatinine 1.2 MG/DL (0.55-1.30) Estimat Glomerular Filtration Rate mL/min (>60) Glucose Level 78 MG/DL (74-106) Calcium Level 9.1 MG/DL (8.5-10.1) Total Bilirubin 0.3 MG/DL (0.2-1.0) Aspartate Amino Transf (AST/SGOT) 15 U/L (15-37) Alanine Aminotransferase (ALT/SGPT) 22 U/L (12-78) Alkaline Phosphatase 69 U/L (46-116) Ammonia 21 umol/L (11-32) Total Protein 6.3 G/DL (6.4-8.2) L Albumin 3.1 G/DL (3.4-5.0) L Globulin 3.2 g/dL Albumin/Globulin Ratio 1.0 (1.0-2.7) Triglycerides Level 53 MG/DL (30-150) Cholesterol Level 126 MG/DL (< 200) LDL Cholesterol 65 mg/dL (<100) HDL Cholesterol 54 MG/DL (40-60) Cholesterol/HDL Ratio 2.3 (3.3-4.4) L Thyroid Stimulating Hormone (TSH) 0.664 uiU/mL (0.358-3.740) Height (Feet): 5 Height (Inches): 8.00 Weight (Pounds): 140 Medications Current Medications Medications (Trade) Dose Ordered Sig/Lea Route PRN Reason Start Time Stop Time Status Last Admin Dose Admin Acetaminophen (Tylenol) 650 mg Q4H PRN ORAL fever 10/19/18 18:00 11/18/18 17:59 Al Hydroxide/Mg Hydroxide (Mylanta II) 30 ml Q6H PRN ORAL dyspepsia 10/19/18 18:00 11/18/18 17:59 Albuterol/ Ipratropium (Albuterol/ Ipratropium) 3 ml Q4H PRN HHN Shortness of Breath 10/19/18 18:00 10/24/18 17:59 Amlodipine Besylate (Norvasc) 5 mg DAILY ORAL 10/20/18 09:00 11/19/18 08:59 10/20/18 08:14 Aspirin (ASA) 81 mg DAILY ORAL 10/20/18 09:00 11/19/18 08:59 10/20/18 08:13 Citalopram Hydrobromide (celeXA) 20 mg DAILY ORAL 10/20/18 09:00 11/19/18 08:59 10/20/18 08:13 Clonidine HCl (Catapres Tab) 0.1 mg Q4H PRN ORAL For High Blood Pressure 10/19/18 18:00 11/18/18 17:59 Dextrose (Dextrose 50%) 25 ml Q30M PRN IV Hypoglycemia 10/19/18 18:00 11/18/18 17:59 Dextrose (Dextrose 50%) 50 ml Q30M PRN IV Hypoglycemia 10/19/18 18:00 11/18/18 17:59 Dextrose/Sodium Chloride 1,000 ml @ 50 mls/hr Q20H IV 10/19/18 17:54 11/18/18 17:53 10/20/18 13:12 Heparin Sodium (Porcine) (Heparin 5000 units/ml) 5,000 units EVERY 12 HOURS SUBQ 10/19/18 21:00 11/18/18 20:59 10/19/18 21:36 Lisinopril (Prinivil) 20 mg DAILY ORAL 10/20/18 09:00 11/19/18 08:59 10/20/18 08:13 Lorazepam (Ativan 2mg/ml 1ml) 0.5 mg Q4H PRN IV For Anxiety 10/19/18 18:00 10/26/18 17:59 Morphine Sulfate (Morphine Sulfate) 1 mg Q4H PRN IVP For Pain 7-10 10/19/18 18:00 10/26/18 17:59 Nitroglycerin (Ntg) 0.4 mg Q5M X 3 DOSES PRN SL Prn Chest Pain 10/19/18 18:00 11/18/18 17:59 Ondansetron HCl (Zofran) 4 mg Q6H PRN IVP Nausea & Vomiting 10/19/18 18:00 11/18/18 17:59 Polyethylene Glycol (Miralax) 17 gm HSPRN PRN ORAL Constipation 10/19/18 18:00 11/18/18 17:59 Promethazine HCl/ Codeine (Phenergan with Codeine) 5 ml Q4H PRN ORAL For Cough 10/19/18 18:00 11/18/18 17:59 Quetiapine Fumarate (SEROquel) 50 mg QLUNCH ORAL 10/20/18 11:30 11/19/18 11:29 10/20/18 12:44 Quetiapine Fumarate (SEROquel) 100 mg BID ORAL 10/19/18 20:02 11/18/18 20:01 10/20/18 17:41 Temazepam (Restoril) 15 mg HSPRN PRN ORAL Insomnia 10/19/18 18:00 10/26/18 17:59 Assessment/Plan Assessment/Plan Hematology Consultation DOS: 10/20/18 RFC: Pancytopenia REQ MD: Lianet GALDAMEZ 83y old female presents with altered mental status. Apparently his baseline is much more active than today. He was out walking on his own. There is no suggestion of any trauma. The patient states he is thirsty. It's unknown whether he ingested any other substances. His glucose in the field was 115. The patient was with his family and they're not here. Family here and they stated that he's had 2 episodes like this in the past. He was hospitalized in July and September. Both times he was dehydrated but also had elevated troponin with normal renal function. There were talking about doing catheterization and stent but the decided not to because of his age. The patient's on Seroquel and the dose has not changed for the last 2 months. Hospitalized last year for lower GI bleed. He was taking 2 baby aspirins at that time. He was reduced to 1 after that. They state difficult to get him to take oral intake. The last time they knowing moved his bowels was on Saturday but uncertain if it's been more than that. Patient hasn't an occasional cough but no vomiting. He has a foul odor to his urine but when they checked his urine it's usually clear. History of hypertension History of atrial fibrillation - He is on aspirin. There were considering Pradaxa or Coumadin but he is a fall risk and so they've kept him on aspirin only. History of reflux. Taking omeprazole Allergies: PENICILLINS (Verified Allergy, Unknown, 01/30/16) Uncoded Allergies: PENICLLINS (Allergy, Unknown, 10/19/18) Limited by: medical condition Past Medical History: see triage record, old chart reviewed - 2015 Social History: Denies: smoking, alcohol use, drug use Social History Narrative lives with family Reviewed Nursing Documentation: PMH: Agreed; PSxH: Agreed Past Medical History: No History, Except For Hx Cardiac Problems: Yes Hx Hypertension: Yes History Of Psychiatric Problem: Yes Hx Neurological Problems: Yes - Dementia Hx Cerebrovascular Accident: Yes Review of Systems: limited PE Vital Signs Date Time Temp Pulse Resp B/P (MAP) Pulse Ox O2 Delivery O2 Flow Rate FiO2 10/19/18 14:55 96.4 65 14 106/52 95 Room Air Sp02 EP Interpretation: reviewed, normal General Appearance: well appearing, no apparent distress Head: normocephalic Eyes: bilateral eye normal inspection, bilateral eye PERRL ENT: dry mucus membranes Neck: supple Respiratory: lungs clear, normal breath sounds Cardiovascular: regular rate, rhythm Gastrointestinal: normal inspection, normal bowel sounds, nd Musculoskeletal: back normal, normal range of motion Neurologic: responsive, DTRs symmetric, sensory intact Psychiatric: depressed affect Laboratory Tests Test 10/20/18 06:50 White Blood Count 3.9 K/UL (4.8-10.8) L Red Blood Count 4.38 M/UL (4.70-6.10) L Hemoglobin 10.6 G/DL (14.2-18.0) L Hematocrit 34.0 % (42.0-52.0) L Mean Corpuscular Volume 78 FL (80-99) L Mean Corpuscular Hemoglobin 24.2 PG (27.0-31.0) L Mean Corpuscular Hemoglobin Concent 31.1 G/DL (32.0-36.0) L Red Cell Distribution Width 13.9 % (11.6-14.8) Platelet Count 114 K/UL (150-450) L Mean Platelet Volume 9.7 FL (6.5-10.1) Neutrophils (%) (Auto) % (45.0-75.0) Lymphocytes (%) (Auto) % (20.0-45.0) Monocytes (%) (Auto) % (1.0-10.0) Eosinophils (%) (Auto) % (0.0-3.0) Basophils (%) (Auto) % (0.0-2.0) Differential Total Cells Counted 100 Neutrophils % (Manual) 54 % (45-75) Lymphocytes % (Manual) 40 % (20-45) Monocytes % (Manual) 4 % (1-10) Eosinophils % (Manual) 2 % (0-3) Basophils % (Manual) 0 % (0-2) Band Neutrophils 0 % (0-8) Platelet Estimate Decreased L Platelet Morphology Normal Hypochromasia 1+ Prothrombin Time 11.7 SEC (9.30-11.50) H Prothromb Time International Ratio 1.1 (0.9-1.1) Activated Partial Thromboplast Time 29 SEC (23-33) Sodium Level 145 MMOL/L (136-145) Potassium Level 4.6 MMOL/L (3.5-5.1) Chloride Level 109 MMOL/L (98-107) H Carbon Dioxide Level 30 MMOL/L (21-32) Anion Gap 6 mmol/L (5-15) Blood Urea Nitrogen 21 mg/dL (7-18) H Creatinine 1.2 MG/DL (0.55-1.30) Estimat Glomerular Filtration Rate mL/min (>60) Glucose Level 78 MG/DL (74-106) Calcium Level 9.1 MG/DL (8.5-10.1) Total Bilirubin 0.3 MG/DL (0.2-1.0) Aspartate Amino Transf (AST/SGOT) 15 U/L (15-37) Alanine Aminotransferase (ALT/SGPT) 22 U/L (12-78) Alkaline Phosphatase 69 U/L (46-116) Ammonia 21 umol/L (11-32) Total Protein 6.3 G/DL (6.4-8.2) L Albumin 3.1 G/DL (3.4-5.0) L Globulin 3.2 g/dL Albumin/Globulin Ratio 1.0 (1.0-2.7) Triglycerides Level 53 MG/DL (30-150) Cholesterol Level 126 MG/DL (< 200) LDL Cholesterol 65 mg/dL (<100) HDL Cholesterol 54 MG/DL (40-60) Cholesterol/HDL Ratio 2.3 (3.3-4.4) L Thyroid Stimulating Hormone (TSH) 0.664 uiU/mL (0.358-3.740) Assesment and Recs: # Pancytopenia -- multiple etiologies could be related to underlying liver disease, medication-induced, infection versus viral syndrome --> peripheral smear has been ordered and does not show significant abnormalities --> Medications have been reviewed --> Continue to monitor for improvement, trend cbc --> Hep panel and HIV have been ordered --> US abd ordered to r/o cirrhosis and hepatosplenomegaly --> consider other causes, infections that could contribute --> reverse isolation if ANC is <2000 --> Give neupogen if ANC <1000 --> Transfuse if hgb <7, with 1 unit prbc --> consider bone marrow biopsy if no other causes are found # Coagulation defect, unspecified aka coagulopathy, multifactorial usually related to poor PO intake versus medications, versus hepatitis v cirrhosis --> administer Vitamin K if patient is bleeding or FFP if the INR is >10 --> hold off on ffp unless active procedure/bleeding, first begin with vit K 10 --> mixing study as needed # Altered mental status with prior CVAs --> consider neuro recs --> on abx # Azotemia is on iv fluids --> appreciate renal recs --> as per stella dykes The timing of this note does not necessarily reflect the time of the patient was seen. Greatly appreciate consultation! Jatin Márquez MD Oct 20, 2018 17:56
[2018-10-20 19:06] LABS: FERRITIN 35 NG/ML (8-388)
--- NOTE | 2018-10-20 19:15 | NUR ---
HAND-OFF: Report given to RAJESH SAEED.
--- NOTE | 2018-10-20 19:16 | NUR ---
NURSE NOTES: Report received from CHRISTOPHE Kim. APtient seen in bed in semi gonzalez position. Alert, verbally responsive, able to make needs known. Respiration is even no SOB or S/sx of acute respiratory distress noted, currently on RA with sp02 97%. Denies any pain at this time. Noted with condom cath, intact. IV site noted to RFA 22g, IVF of D51/2NS running at 50cc/hr. Bed is in lowest position. call light is within easy reach while in bed. Will continue to monitor.
[2018-10-20 19:20] LABS: % IRON SATURATION 67 % (15-50); IRON 114 ug/dL (50-175); TOTAL IRON BINDING CAPACITY 170 ug/dL (250-450)
[2018-10-20 20:00] VITALS: BP 152/77
--- NOTE | 2018-10-20 21:30 | History and Physical Report ---
DATE OF ADMISSION: 10/19/2018 CONSULTANTS: 1. Linda Prater M.D. 2. Dr. Flores. 3. Mitch Meek M.D. 4. Teodora Lewis M.D. 5. Ashley Flood M.D. CHIEF COMPLAINT: Altered level of consciousness and dehydration. BRIEF HISTORY: An 83-year-old male, who lives at home with daughter. Daughter notes that the patient became very weak and lethargic and slightly more confused than usual, brought to [facility], diagnosed with the above, admitted to telemetry for further care. Currently, calm in bed, slightly confused. No complaint. REVIEW OF SYSTEMS: No chest pain. No shortness of breath. No nausea, vomiting, or diarrhea. PAST MEDICAL HISTORY: Include history of CVA and dementia. PAST SURGICAL HISTORY: None. MEDICATIONS: Include Seroquel, Norvasc, aspirin, Celexa, Prinivil, heparin, albuterol, morphine, Zofran, Ativan, Mylanta, nitroglycerin, Catapres, and Phenergan with Codeine. ALLERGIES: Penicillin. SOCIAL HISTORY: No smoking. Occasional alcohol. No intravenous drug abuse. FAMILY HISTORY: Noncontributory. PHYSICAL EXAMINATION: GENERAL: Calm in bed, oriented x2, and in no acute distress. VITAL SIGNS: Vital signs show temperature is 97 degrees, pulse 73, respirations 20, and blood pressure 120/68. CARDIOVASCULAR: No murmurs. LUNGS: Distant and clear. ABDOMEN: Bowel sounds positive. Nontender. Nondistended. EXTREMITIES: No cyanosis, clubbing, or edema. NEUROLOGIC: The patient moves all extremities, slightly weak. LABORATORY AND DIAGNOSTIC DATA: White count 3.9, H and H is 10 and 34, and platelets 114,000. BMP shows chloride 109 and BUN 21. Troponin 0.091. Albumin 3.1. INR is 1.1. PTT is 29. Urinalysis shows 1+ protein, otherwise normal. Urine tox negative. ASSESSMENT: 1. Altered level of consciousness. 2. Dehydration. 3. Anemia. 4. Pancytopenia. 5. History of CVA. 6. Dementia. 7. NSTEMI. 8. insufficiency. 9. Malnutrition. PLAN: 1. PT and dietary evaluation. 2. CBC and BMP in the morning. 3. Resume home medications. 4. Continue Hematology evaluation as well. Mina Garcia D.O. DR: SHELLIE JOB#: [id number] CC:
[2018-10-20 21:38] LABS: INR 1.1 (0.9-1.1)
--- NOTE | 2018-10-20 22:30 | NUR ---
NURSE NOTES: Report given to CHRISTOPHE Baldwin , Patient stable.
--- NOTE | 2018-10-20 22:35 | NUR ---
NURSE NOTES: Received report from Warner Narayanan RN. Patient in bed AAO X1-2 with episodes of confusion, no S/S of acute pain or distress noted at this time. Able to verbally express needs and wants appropriately with no difficulty. On R/A with 02 sat at 95-98% with no respiratory distress at this time. IV line intact and patent. Safety precaution in place; siderails x3 up, call light within reach, bed in lowest position, brakes and alarm on at all times and placed on continuous cardiac monitoring per protocol. Needs and wants anticipated and attended, will continue plan of care and monitor for any changes noted. Will closely monitor for episodes of confusion m/b trying to get out of bed. No incident noted. Will continue to monitor
[2018-10-21] VITALS: BP 137/86
--- NOTE | 2018-10-21 01:15 | Consultation ---
DATE OF CONSULTATION: 10/20/2018 NEPHROLOGY CONSULTATION CONSULTING PHYSICIAN: Teodora Lewis M.D. REFERRING PHYSICIAN: Mina Garcia D.O. REASON FOR CONSULTATION: Acute renal failure. HISTORY OF PRESENT ILLNESS: The patient is an 83-year-old male with past medical history significant for history of AFib, CAD, history of PA, and GI bleeding who was brought in by paramedics to [facility] for altered mental status. The patient apparently had two syncopal episodes while sitting and the patient was brought into ER. In the ER, the patient found to be severely dehydrated and had a creatinine of 1.7. The patient was admitted with syncopal episode. I was called for management of renal disease and electrolyte imbalance. PAST MEDICAL HISTORY: 1. History of hypertension. 2. History of dementia. 3. History of ATN in the past. PAST SURGICAL HISTORY: None. ALLERGIES: The patient is allergic to penicillin. MEDICATIONS: Home medications are includin. Amlodipine 5 mg daily. 2. Aspirin 81 mg daily. 3. Lisinopril 20 mg daily. 4. MVI one tablet p.o. daily. 5. one tablet p.o. daily. 6. Seroquel 100 mg in the morning and 50 mg in the afternoon. FAMILY HISTORY: Noncontributory. REVIEW OF SYSTEMS: GENERAL: He complained of generalized weakness. Denied any fever, chills, or night sweats. HEAD AND NECK: Denies any dysphagia, odynophagia, blurry vision, headache, or neck stiffness. PULMONARY: No shortness of breath. No cough or sputum. CARDIOVASCULAR: Denied any chest pain or palpitations. GASTROINTESTINAL: Denied any nausea, vomiting, diarrhea, hematemesis, or hematochezia. GENITOURINARY: Denies any dysuria or frequency. MUSCULOSKELETAL: Denies any weakness or numbness. PHYSICAL EXAMINATION: VITAL SIGNS: The patient has temperature of 98 degrees, pulse rate of 75, and blood pressure of 132/74. HEAD AND NECK: No JVP. No LAD. No thyromegaly. Extraocular movement intact. Pupils are reactive to light and accommodation. LUNGS: Clear to auscultation. CARDIAC: Regular rate and rhythm. S1 and S2. No murmur. No rub. ABDOMEN: Soft, nontender, and nondistended. EXTREMITIES: No edema. No clubbing. No cyanosis. LABORATORY DATA: Sodium 145, potassium 4.6, BUN of 21, creatinine of 1.2 down from 1.7, and calcium of 9.1. AST of 16, ALT of 22, and alkaline phosphatase 69. Total protein of 6.3, albumin of , and cholesterol . UA shows specific gravity of 1.020, protein 1+, wbc 2 to 4, and rbc 2 to 4. ASSESSMENT: 1. Acute renal failure, the etiology of acute renal failure, ATN or prerenal azotemia. 2. Hypertension, well controlled at this time. 3. History of AFib. 4. History of dementia. PLAN: For the patient to obtain UA. Check the random urine protein-creatinine ratio to calculate the proteinuria. Check the urine sodium creatinine to calculate fractional excretion of sodium. Ultrasound of the kidneys to evaluate the kidney size. Avoid any use of nephrotoxics. At the end, I would like to thank, Dr. Mina Garcia for allowing me to participate in the care of this patient. Teodora Lewis M.D. DR: JO JOB#: [id number] CC:
--- NOTE | 2018-10-21 03:59 | NUR ---
NURSE NOTES: Patient in bed asleep with no S/S of acute pain or distress at this time. Will continue to monitor
[2018-10-21 04:00] VITALS: BP 127/61
--- NOTE | 2018-10-21 05:50 | NUR ---
NURSE NOTES: Noted incident of fall with no complaints of pain at this time.CN, BENG Sup, Primary MD, and next of kin made aware. Fall protocol initiated and is awaiting further orders from MD. Patient head to toe assessment done and placed on W/C near NSG station. Will continue to monitor.
--- NOTE | 2018-10-21 06:50 | NUR ---
NURSE NOTES: Incident report filed and recorded. Still awaiting call back from primary MD. WIll continue plan of care
--- NOTE | 2018-10-21 07:00 | NUR ---
NURSE NOTES: Received patient in bed from CHRISTOPHE Ho, denies any pain at this time. No iv, aware. Bed is in lowest position with bedside rails up x2. Brakes engaged for safety. Call light within reach. Will continue with the plan of care.
--- NOTE | 2018-10-21 07:30 | NUR ---
NURSE NOTES: OBTAINED REPORT FROM GREY SAEED;PER REPORT, PT HAD FALL INCIDENT DURING [employer]ICE.PT PLACED CLOSER TO NURSES STATION IN ROOM 210-2. PT EDUCATED ON FALL RISK PRECAUTIONS.VERBALIZED UNDERSTANDING (REQUIRES REINFORCEMENT).BED ALARM ON,FALL RISK SIGN ON DOOR AND PT, NON-SKID SOCKS ON PT. BED IN LOW LOCK POSITION.NO BRUISING NOTED. SKIN REMAINS INTACT. PT HAS FULL ROM TO ALL EXTREMITIES. PT DENIES PAIN/DISCOMFORT OF ANY KIND. WILL CONTINUE TO MONITOR.
--- NOTE | 2018-10-21 07:45 | NUR ---
NURSE NOTES: Ordered Stat Head CT and Pelvis XR for post fall incident. Will continue to monitor
--- NOTE | 2018-10-21 07:53 | NUR ---
HAND-OFF: Report given to Bell. Jordan SAEED. Patient on WC closely monitored for episode of fall. Will endorse plan of care
[2018-10-21 08:49] LABS: HEMATOCRIT 39.7 % (42.0-52.0); HEMOGLOBIN 12.2 G/DL (14.2-18.0); MEAN CORPUSCULAR VOLUME 78 FL (80-99); PLATELET COUNT 132 K/UL (150-450); RED CELL DISTRIBUTION WIDTH 13.7 % (11.6-14.8); WHITE BLOOD COUNT 4.4 K/UL (4.8-10.8)
[2018-10-21 09:05] LABS: ALANINE AMINOTRANSFERASE 28 U/L (12-78); ALBUMIN 3.7 G/DL (3.4-5.0); ALKALINE PHOSPHATASE 92 U/L (46-116); ANION GAP 8 mmol/L (5-15); ASPARTATE AMINO TRANSFERASE 20 U/L (15-37); BILIRUBIN,TOTAL 0.2 MG/DL (0.2-1.0); BLOOD UREA NITROGEN 18 mg/dL (7-18); CALCIUM 9.6 MG/DL (8.5-10.1); CARBON DIOXIDE 28 MMOL/L (21-32); CHLORIDE 106 MMOL/L (98-107); CREATININE 1.2 MG/DL (0.55-1.30); PHOSPHORUS 3.4 MG/DL (2.5-4.9); SODIUM 142 MMOL/L (136-145)
--- NOTE | 2018-10-21 09:15 | NUR ---
NURSE NOTES: PER LAB ([facility]) TROPONIN 0.108, WILL NOTIFY
[2018-10-21 09:30] VITALS: BP 141/81
--- NOTE | 2018-10-21 09:40 | Diagnostic Imaging Report ---
Indication: Head trauma. Headache Technique: Contiguous 5 mm thick transaxial imaging of the head obtained in a Siemens Sensation [address] scanner. Soft tissue and bone windows generated. Automatic Exposure Control was utilized. Total Dose length Product (DLP): 1291.[address] Dose Index Volume (CTDIvol): 70.38 mGy Comparison: 10/19/2018 Findings: There is no change compared to the previous examination. There are multifocal areas of cystic encephalomalacia involving portions of the right caudate, left putamen, thibodeaux radiata. There is also right occipital low-attenuation with associated mild ex vacuo dilatation of the occipital horn noted. Moderate generalized atrophy again demonstrated. Low-attenuation of the white matter tracts are demonstrated diffusely especially in a periventricular distribution. No acute hemorrhage mass effect or edema identified. Osseous structures are unremarkable. IMPRESSION: No change from 10/19/2018. 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 Involutional changes and evidence of chronic small vessel disease involving white matter tracts The CT scanner at [facility] is accredited by the [employer] and the scans are performed using dose optimization techniques as appropriate to a performed exam including Automatic Exposure control.
--- NOTE | 2018-10-21 09:44 | NUR ---
SPOKE WITH MD NEELY AND MADE AWARE OF ELEVATED TROPONIN 0.108, RECEIVED NEW ORDER: TRANSFER TO [facility] AND CALL MD PLASCENCIA.
[2018-10-21] MEDS: D5 1/2NS 1,000 ML IV SCH (09:54)
--- NOTE | 2018-10-21 09:59 | Pulmonology Progress Note ---
Assessment/Plan Problems: (1) NSTEMI (non-ST elevated myocardial infarction) (2) Protein-calorie malnutrition, severe (3) ATN (acute tubular necrosis) (4) Advanced dementia Assessment/Plan serial ekg, troponin, ( higher now) echocardiogram reviewed EF 55%, mild diastolic dysfunction. On Seroquel bid and lunch time iv fluids renal f/u pt/ot evaluation dvt prophylaxis f/u cardiology recommendation Subjective Interval Events: still confused, fell this morning out of bed Constitutional: Reports: no symptoms Allergies: Coded Allergies: PENICILLINS (Verified Allergy, Unknown, 01/30/16) Uncoded Allergies: PENICLLINS (Allergy, Unknown, 10/19/18) Objective Last 24 Hour Vital Signs Date Time Temp Pulse Resp B/P (MAP) Pulse Ox O2 Delivery O2 Flow Rate FiO2 10/21/18 09:30 97.8 74 20 141/81 (101) 98 10/21/18 08:00 85 10/21/18 08:00 Room Air 10/21/18 04:00 97.9 72 19 127/61 (83) 99 10/21/18 04:00 82 10/21/18 00:00 76 10/21/18 00:00 97.7 87 20 137/86 (103) 97 10/20/18 21:00 Room Air 10/20/18 20:55 97 20 Room Air 21 10/20/18 20:00 88 10/20/18 20:00 98.9 91 18 152/77 (102) 99 10/20/18 16:00 97.0 84 20 137/82 (100) 100 10/20/18 16:00 86 10/20/18 12:00 68 10/20/18 12:00 97.8 73 20 128/68 (88) 99 Intake and Output 10/20/18 10/21/18 18:59 06:59 Intake Total 540 ml Output Total 1200 ml 400 ml Balance -660 ml -400 ml Intake Oral 490 ml IV Total 50 ml Output Urine Total 1200 ml 400 ml # Voids 1 # Bowel Movements 2 General Appearance: cachetic HEENT: normocephalic, atraumatic Respiratory/Chest: chest wall non-tender, lungs clear Cardiovascular: normal peripheral pulses, normal rate Abdomen: normal bowel sounds, soft, non tender Extremities: no cyanosis Skin: no rash Laboratory Tests 10/20/18 20:30: Sickle Cell Screen [Pending], Hemoglobin A [Pending], Hemoglobin A2 [Pending], Hemoglobin C [Pending], Hemoglobin F () [Pending], Hemoglobin S [Pending], Variant Hemoglobin [Pending], Hemoglobin Electrophoresis Interp [Pending], Hemoglobin Interpretation [Pending], Hemoglobin Solubility [Pending], Haptoglobin [Pending], Prothrombin Time 11.2, Prothromb Time International Ratio 1.1, Fibrinogen 298, Carcinoembryonic Antigen [Pending], Methylmalonic Acid [Pending], Immunoglobulin G [Pending], Immunoglobulin A [Pending], Immunoglobulin M [Pending], Immunofixation Screen [Pending], Hepatitis A IgM Antibody [Pending], Hepatitis B Surface Antigen [Pending], Hepatitis B Core IgM Antibody [Pending], Hepatitis C Antibody [Pending] 10/21/18 01:00: Stool Occult Blood Negative 10/21/18 08:12: White Blood Count 4.4L, Red Blood Count 5.10, Hemoglobin 12.2L, Hematocrit 39.7L , Mean Corpuscular Volume 78L, Mean Corpuscular Hemoglobin 23.9L, Mean Corpuscular Hemoglobin Concent 30.7L, Red Cell Distribution Width 13.7, Platelet Count 132L, Mean Platelet Volume 8.7, Neutrophils (%) (Auto) , Lymphocytes (%) (Auto) , Monocytes (%) (Auto) , Eosinophils (%) (Auto) , Basophils (%) (Auto) , Neutrophils % (Manual) [Pending], Lymphocytes % (Manual) [Pending], Platelet Estimate [Pending], Platelet Morphology [Pending], Erythrocyte Sedimentation Rate [Pending], Sodium Level 142, Potassium Level 4.0 , Chloride Level 106, Carbon Dioxide Level 28, Anion Gap 8, Blood Urea Nitrogen 18, Creatinine 1.2, Estimat Glomerular Filtration Rate , Glucose Level 93, Calcium Level 9.6, Phosphorus Level 3.4, Magnesium Level 1.9, Total Bilirubin 0.2, Aspartate Amino Transf (AST/SGOT) 20, Alanine Aminotransferase (ALT/SGPT) 28, Alkaline Phosphatase 92, Troponin I 0.108H, Total Protein 7.5, Albumin 3.7, Globulin 3.8, Albumin/Globulin Ratio 1.0 Current Medications Medications (Trade) Dose Ordered Sig/Lea Route PRN Reason Start Time Stop Time Status Last Admin Dose Admin Acetaminophen (Tylenol) 650 mg Q4H PRN ORAL fever 10/19/18 18:00 11/18/18 17:59 Al Hydroxide/Mg Hydroxide (Mylanta II) 30 ml Q6H PRN ORAL dyspepsia 10/19/18 18:00 11/18/18 17:59 Albuterol/ Ipratropium (Albuterol/ Ipratropium) 3 ml Q4H PRN HHN Shortness of Breath 10/19/18 18:00 10/24/18 17:59 Amlodipine Besylate (Norvasc) 5 mg DAILY ORAL 10/20/18 09:00 11/19/18 08:59 10/20/18 08:14 Aspirin (ASA) 81 mg DAILY ORAL 10/20/18 09:00 11/19/18 08:59 10/20/18 08:13 Citalopram Hydrobromide (celeXA) 20 mg DAILY ORAL 10/20/18 09:00 11/19/18 08:59 10/20/18 08:13 Clonidine HCl (Catapres Tab) 0.1 mg Q4H PRN ORAL For High Blood Pressure 10/19/18 18:00 11/18/18 17:59 Dextrose (Dextrose 50%) 25 ml Q30M PRN IV Hypoglycemia 10/19/18 18:00 11/18/18 17:59 Dextrose (Dextrose 50%) 50 ml Q30M PRN IV Hypoglycemia 10/19/18 18:00 11/18/18 17:59 Dextrose/Sodium Chloride 1,000 ml @ 50 mls/hr Q20H IV 10/19/18 17:54 11/18/18 17:53 10/20/18 13:12 Heparin Sodium (Porcine) (Heparin 5000 units/ml) 5,000 units EVERY 12 HOURS SUBQ 10/19/18 21:00 11/18/18 20:59 10/20/18 20:39 Lisinopril (Prinivil) 20 mg DAILY ORAL 10/20/18 09:00 11/19/18 08:59 10/20/18 08:13 Lorazepam (Ativan 2mg/ml 1ml) 0.5 mg Q4H PRN IV For Anxiety 10/19/18 18:00 10/26/18 17:59 Memantine (Namenda) 5 mg BID ORAL 10/21/18 09:00 11/20/18 08:59 Morphine Sulfate (Morphine Sulfate) 1 mg Q4H PRN IVP For Pain 7-10 10/19/18 18:00 10/26/18 17:59 Nitroglycerin (Ntg) 0.4 mg Q5M X 3 DOSES PRN SL Prn Chest Pain 10/19/18 18:00 11/18/18 17:59 Ondansetron HCl (Zofran) 4 mg Q6H PRN IVP Nausea & Vomiting 10/19/18 18:00 11/18/18 17:59 Polyethylene Glycol (Miralax) 17 gm HSPRN PRN ORAL Constipation 10/19/18 18:00 11/18/18 17:59 Promethazine HCl/ Codeine (Phenergan with Codeine) 5 ml Q4H PRN ORAL For Cough 10/19/18 18:00 11/18/18 17:59 Quetiapine Fumarate (SEROquel) 50 mg QLUNCH ORAL 10/20/18 11:30 11/19/18 11:29 10/20/18 12:44 Quetiapine Fumarate (SEROquel) 100 mg BID ORAL 10/19/18 20:02 11/18/18 20:01 10/20/18 17:41 Temazepam (Restoril) 15 mg HSPRN PRN ORAL Insomnia 10/19/18 18:00 10/26/18 17:59 Linda Prater MD Oct 21, 2018 09:59
[2018-10-21] MEDS: Aspirin Baby 81mg ORAL SCH (10:19)
[2018-10-21] MEDS: Lisinopril 20mg tab ORAL SCH (10:19)
[2018-10-21] MEDS: Heparin 5000 units/ml inj SUBQ SCH ×2 (10:21→20:09)
[2018-10-21] MEDS: Memantine 5 MG TAB ORAL SCH ×2 (10:23→17:27)
[2018-10-21] MEDS: Citalopram Hydrobromide 10mg Tab ORAL SCH (10:23)
--- NOTE | 2018-10-21 11:38 | Diagnostic Imaging Report ---
Indication: pain Pelvic trauma and pain Findings: Single AP view of the pelvis was performed. No acute fracture seen. Alignment of both hips appears normal. There is osteoporosis present. Extensive vascular calcifications are noted. Narrowing of both hip joints demonstrated. IMPRESSION: No acute injury
[2018-10-21 12:00] VITALS: BP 145/75
--- NOTE | 2018-10-21 14:33 | General Progress Note ---
Assessment/Plan Problem List: (1) NSTEMI (non-ST elevated myocardial infarction) ICD Codes: I21.4 - Non-ST elevation (NSTEMI) myocardial infarction SNOMED: 45625872, 414951310 (2) Altered mental status ICD Codes: R41.82 - Altered mental status, unspecified SNOMED: 618842256 Qualifiers: Qualified Codes: R40.1 - Stupor (3) Dehydration ICD Codes: E86.0 - Dehydration SNOMED: 15783882, 736137694, 914058852 (4) Renal insufficiency ICD Codes: N28.9 - Disorder of kidney and ureter, unspecified SNOMED: 235038129, 852444433 (5) Elevated troponin ICD Codes: R74.8 - Abnormal levels of other serum enzymes SNOMED: 712536744, 238860164, 869361363 (6) Advanced dementia ICD Codes: F03.90 - Unspecified dementia without behavioral disturbance SNOMED: 56301668 (7) Protein-calorie malnutrition, severe ICD Codes: E43 - Unspecified severe protein-calorie malnutrition SNOMED: 359456113, 699556587, 706414203 Status: unchanged Assessment/Plan pt diet pain control cardio f/u cbc bmp am Subjective Constitutional: Reports: weakness Allergies: Coded Allergies: PENICILLINS (Verified Allergy, Unknown, 01/30/16) Uncoded Allergies: PENICLLINS (Allergy, Unknown, 10/19/18) All Systems: reviewed and negative except above Subjective calm in bed Objective Last 24 Hour Vital Signs Date Time Temp Pulse Resp B/P (MAP) Pulse Ox O2 Delivery O2 Flow Rate FiO2 10/21/18 12:00 98.0 85 20 145/75 (98) 99 10/21/18 12:00 96 10/21/18 10:20 74 141/81 10/21/18 10:19 141/81 10/21/18 09:30 97.8 74 20 141/81 (101) 98 10/21/18 08:00 85 10/21/18 08:00 Room Air 10/21/18 04:00 97.9 72 19 127/61 (83) 99 10/21/18 04:00 82 10/21/18 00:00 76 10/21/18 00:00 97.7 87 20 137/86 (103) 97 10/20/18 21:00 Room Air 10/20/18 20:55 97 20 Room Air 21 10/20/18 20:00 88 10/20/18 20:00 98.9 91 18 152/77 (102) 99 10/20/18 16:00 97.0 84 20 137/82 (100) 100 10/20/18 16:00 86 Intake and Output 10/20/18 10/21/18 19:00 07:00 Intake Total 490 ml Output Total 1200 ml 400 ml Balance -710 ml -400 ml Intake Oral 490 ml Output Urine Total 1200 ml 400 ml # Voids 1 # Bowel Movements 2 Laboratory Tests 10/20/18 20:30: Sickle Cell Screen [Pending], Hemoglobin A [Pending], Hemoglobin A2 [Pending], Hemoglobin C [Pending], Hemoglobin F () [Pending], Hemoglobin S [Pending], Variant Hemoglobin [Pending], Hemoglobin Electrophoresis Interp [Pending], Hemoglobin Interpretation [Pending], Hemoglobin Solubility [Pending], Haptoglobin [Pending], Prothrombin Time 11.2, Prothromb Time International Ratio 1.1, Fibrinogen 298, Carcinoembryonic Antigen [Pending], Methylmalonic Acid [Pending], Immunoglobulin G [Pending], Immunoglobulin A [Pending], Immunoglobulin M [Pending], Immunofixation Screen [Pending], Hepatitis A IgM Antibody [Pending], Hepatitis B Surface Antigen [Pending], Hepatitis B Core IgM Antibody [Pending], Hepatitis C Antibody [Pending] 10/21/18 01:00: Stool Occult Blood Negative 10/21/18 08:12: White Blood Count 4.4L, Red Blood Count 5.10, Hemoglobin 12.2L, Hematocrit 39.7L , Mean Corpuscular Volume 78L, Mean Corpuscular Hemoglobin 23.9L, Mean Corpuscular Hemoglobin Concent 30.7L, Red Cell Distribution Width 13.7, Platelet Count 132L, Mean Platelet Volume 8.7, Neutrophils (%) (Auto) , Lymphocytes (%) (Auto) , Monocytes (%) (Auto) , Eosinophils (%) (Auto) , Basophils (%) (Auto) , Differential Total Cells Counted 100, Neutrophils % ( Manual) 66, Lymphocytes % (Manual) 29, Monocytes % (Manual) 4, Eosinophils % ( Manual) 1, Basophils % (Manual) 0, Band Neutrophils 0, Platelet Estimate DecreasedL, Platelet Morphology Normal, Hypochromasia 1+, Erythrocyte Sedimentation Rate 18, Sodium Level 142, Potassium Level 4.0, Chloride Level 106 , Carbon Dioxide Level 28, Anion Gap 8, Blood Urea Nitrogen 18, Creatinine 1.2, Estimat Glomerular Filtration Rate , Glucose Level 93, Calcium Level 9.6, Phosphorus Level 3.4, Magnesium Level 1.9, Total Bilirubin 0.2, Aspartate Amino Transf (AST/SGOT) 20, Alanine Aminotransferase (ALT/SGPT) 28, Alkaline Phosphatase 92, Troponin I 0.108H, Total Protein 7.5, Albumin 3.7, Globulin 3.8 , Albumin/Globulin Ratio 1.0, Free Prostate Specific Antigen [Pending], Percent Free Prostate Specific Ag [Pending], Prostate Specific Antigen Total [Pending] Height (Feet): 5 Height (Inches): 8.00 Weight (Pounds): 140 General Appearance: lethargic EENT: normal ENT inspection Neck: normal alignment Cardiovascular: normal peripheral pulses, normal rate, regular rhythm Respiratory/Chest: chest wall non-tender, lungs clear, normal breath sounds Abdomen: normal bowel sounds, non tender, soft Extremities: normal inspection Edema: no edema noted Arm (L), no edema noted Arm (R), no edema noted Leg (L), no edema noted Leg (R), no edema noted Pedal (L), no edema noted Pedal (R), no edema noted Generalized Neurologic: responsive, motor weakness Skin: normal pigmentation, warm/dry Mina Garcia DO Oct 21, 2018 14:33
--- NOTE | 2018-10-21 15:05 | NUR ---
PT NOTES: AM: PT withheld due to elevated troponin level. PM: Cleared for PT session by Judy but unable to see as pt with other disciple for ultrasound.
[2018-10-21 16:00] VITALS: BP 120/60
--- NOTE | 2018-10-21 16:46 | Diagnostic Imaging Report ---
Indication: Abdominal pain. GI bleed. Technique: Grayscale and duplex Doppler imaging of the abdomen performed. Comparison: None Findings: Extensive mural calcium noted within the aorta. Bilateral hydronephrosis demonstrated. Further evaluation of this is recommended. In the left kidney there is an echogenic structure which may be a nonobstructive stone. The bladder is moderately distended. There is a focal protrusion appearing to emanate from the prostate gland producing a filling defect at the base of the urinary bladder. Correlate clinically for prostate carcinoma. Further clinical evaluation may be needed. Significant post void urinary bladder volume estimated at about 200 cc. The liver is unremarkable. The gallbladder is unremarkable. The demonstrated part of the pancreas and IVC show no abnormalities. The spleen is normal in size. There is no biliary ductal dilatation identified. Doppler evaluation of the main portal vein shows patency. There is no ascites. CBD is 5 mm. Impression: Bilateral hydronephrosis requiring further evaluation. Recommend noncontrast CT. Probable nonobstructive stone in the left kidney. Filling defect at the base of the urinary bladder probably prostate origin. Moderately distended urinary bladder with a 200 cc the post void residual. Further clinical evaluation is recommended. Cystoscopy may be needed. No sonographic signs of cirrhosis of the liver.
--- NOTE | 2018-10-21 19:31 | NUR ---
HAND-OFF: Report given to CHRISTOPHE Cervantes. Endorsed plan of care.
--- NOTE | 2018-10-21 19:35 | NUR ---
NURSE NOTES: Received report from Mireya Miller RN. Patient inn bed AAO X2 with episodes of confusion and no complaints of acute pain at this time. Encouraged to stay in bed at all times. IV lines intact and patent with Prescribed fluids ordered. Placed on cardiac monitoring per protocol with no S/S of distress noted. On RA with 02 sat at 95-98%. Safety precaution in place at all times; siderails x3 up, call light within reach, bed in lowest position, brakes and alarm on at all times, also placed on continuos close monitoring for fall prevention. Needs and wants anticipated and attended, will continue plan of care and monitor for any changes noted.
--- NOTE | 2018-10-21 19:44 | Cardiology Progress Note ---
Assessment/Plan Assessment/Plan The patient is seen and examined, full consult report is dictated. Objective Last 24 Hour Vital Signs Date Time Temp Pulse Resp B/P (MAP) Pulse Ox O2 Delivery O2 Flow Rate FiO2 10/21/18 16:00 98.3 62 20 120/60 (80) 99 10/21/18 16:00 83 10/21/18 12:00 98.0 85 20 145/75 (98) 99 10/21/18 12:00 96 10/21/18 10:20 74 141/81 10/21/18 10:19 141/81 10/21/18 09:30 97.8 74 20 141/81 (101) 98 10/21/18 08:00 85 10/21/18 08:00 Room Air 10/21/18 04:00 97.9 72 19 127/61 (83) 99 10/21/18 04:00 82 10/21/18 00:00 76 10/21/18 00:00 97.7 87 20 137/86 (103) 97 10/20/18 21:00 Room Air 10/20/18 20:55 97 20 Room Air 21 10/20/18 20:00 88 10/20/18 20:00 98.9 91 18 152/77 (102) 99 Intake and Output 10/20/18 10/21/18 19:00 07:00 Intake Total 490 ml Output Total 1200 ml 400 ml Balance -710 ml -400 ml Intake Oral 490 ml Output Urine Total 1200 ml 400 ml # Voids 1 # Bowel Movements 2 Laboratory Tests Test 10/20/18 20:30 10/21/18 01:00 10/21/18 08:12 Sickle Cell Screen Pending Hemoglobin A Pending Hemoglobin A2 Pending Hemoglobin C Pending Hemoglobin F () Pending Hemoglobin S Pending Variant Hemoglobin Pending Hemoglobin Electrophoresis Interp Pending Hemoglobin Interpretation Pending Hemoglobin Solubility Pending Haptoglobin Pending Prothrombin Time 11.2 SEC (9.30-11.50) Prothromb Time International Ratio 1.1 (0.9-1.1) Fibrinogen 298 mg/dL (200-400) Carcinoembryonic Antigen Pending Methylmalonic Acid Pending Immunoglobulin G Pending Immunoglobulin A Pending Immunoglobulin M Pending Immunofixation Screen Pending Hepatitis A IgM Antibody Pending Hepatitis B Surface Antigen Pending Hepatitis B Core IgM Antibody Pending Hepatitis C Antibody Pending Stool Occult Blood Negative (NEGATIVE) White Blood Count 4.4 K/UL (4.8-10.8) L Red Blood Count 5.10 M/UL (4.70-6.10) Hemoglobin 12.2 G/DL (14.2-18.0) L Hematocrit 39.7 % (42.0-52.0) L Mean Corpuscular Volume 78 FL (80-99) L Mean Corpuscular Hemoglobin 23.9 PG (27.0-31.0) L Mean Corpuscular Hemoglobin Concent 30.7 G/DL (32.0-36.0) L Red Cell Distribution Width 13.7 % (11.6-14.8) Platelet Count 132 K/UL (150-450) L Mean Platelet Volume 8.7 FL (6.5-10.1) Neutrophils (%) (Auto) % (45.0-75.0) Lymphocytes (%) (Auto) % (20.0-45.0) Monocytes (%) (Auto) % (1.0-10.0) Eosinophils (%) (Auto) % (0.0-3.0) Basophils (%) (Auto) % (0.0-2.0) Differential Total Cells Counted 100 Neutrophils % (Manual) 66 % (45-75) Lymphocytes % (Manual) 29 % (20-45) Monocytes % (Manual) 4 % (1-10) Eosinophils % (Manual) 1 % (0-3) Basophils % (Manual) 0 % (0-2) Band Neutrophils 0 % (0-8) Platelet Estimate Decreased L Platelet Morphology Normal Hypochromasia 1+ Erythrocyte Sedimentation Rate 18 MM/HR (0-20) Sodium Level 142 MMOL/L (136-145) Potassium Level 4.0 MMOL/L (3.5-5.1) Chloride Level 106 MMOL/L (98-107) Carbon Dioxide Level 28 MMOL/L (21-32) Anion Gap 8 mmol/L (5-15) Blood Urea Nitrogen 18 mg/dL (7-18) Creatinine 1.2 MG/DL (0.55-1.30) Estimat Glomerular Filtration Rate mL/min (>60) Glucose Level 93 MG/DL (74-106) Calcium Level 9.6 MG/DL (8.5-10.1) Phosphorus Level 3.4 MG/DL (2.5-4.9) Magnesium Level 1.9 MG/DL (1.8-2.4) Total Bilirubin 0.2 MG/DL (0.2-1.0) Aspartate Amino Transf (AST/SGOT) 20 U/L (15-37) Alanine Aminotransferase (ALT/SGPT) 28 U/L (12-78) Alkaline Phosphatase 92 U/L (46-116) Troponin I 0.108 ng/mL (0.000-0.056) Total Protein 7.5 G/DL (6.4-8.2) Albumin 3.7 G/DL (3.4-5.0) Globulin 3.8 g/dL Albumin/Globulin Ratio 1.0 (1.0-2.7) Free Prostate Specific Antigen Pending Percent Free Prostate Specific Ag Pending Prostate Specific Antigen Total Pending Mitch Meek MD Oct 21, 2018 19:44
[2018-10-21 20:00] VITALS: BP 119/77
[2018-10-21] MEDS: Atorvastatin 80mg tab ORAL SCH (20:18)
[2018-10-21] MEDS: Metoprolol 25mg tab ORAL SCH (20:19)
[2018-10-22] VITALS: BP 128/85
--- NOTE | 2018-10-22 00:30 | Consultation ---
DATE OF CONSULTATION: 10/21/2018 CARDIOLOGY CONSULTATION CONSULTING PHYSICIAN: Mitch Meek M.D. REFERRING PHYSICIAN: Mina Garcia D.O. REASON FOR CONSULTATION: Management of elevated troponin I level. HISTORY OF PRESENT ILLNESS: This is a very unfortunate 83-year-old gentleman, who presents to the hospital with altered level of consciousness and that has been going on in the past few days. The patient apparently according to the family member had two episodes of confusion. He was hospitalized in July and September for severe dehydration and elevated troponin I level. The patient was offered cardiac catheterization, however, due to his age, the patient's family refused the procedure and the patient also has history of lower GI bleed, which was attributed to use of aspirin. His other past medical history is also significant for hypertension, history of paroxysmal atrial fibrillation, and history of gastroesophageal reflux disease. According the patient's family member, Pradaxa and Coumadin was offered to the patient for paroxysmal atrial fibrillation, however, the patient had decided to be placed on aspirin only once daily. ALLERGIES: Penicillin. FAMILY HISTORY: No premature coronary artery disease in first-degree relatives. SOCIAL HISTORY: Denies any tobacco, alcohol, or illicit drug use. MEDICATIONS: List of medications at home includes amlodipine 5 mg daily, aspirin 81 mg daily, Zyrtec 10 mg p.o. daily, Celexa 20 mg p.o. daily, lisinopril 20 mg p.o. daily, multivitamin tablet p.o. daily, Prilosec 20 mg p.o. daily, and Seroquel 100 mg twice daily, REVIEW OF SYSTEMS: HEENT: Denies any headache, diplopia, or blurred vision. CONSTITUTIONAL: Denies any fever, chills, night sweats, or weight loss. CARDIOVASCULAR: Denies any chest pain, shortness of breath, PND, orthopnea, or leg swelling. PULMONARY: Denies any cough, hemoptysis, or wheezing. GASTROINTESTINAL: Denies any nausea, vomiting, diarrhea, constipation, abdominal pain, or GI bleed. GENITOURINARY: Denies any hematuria, dysuria, or incontinence. NEUROLOGY: Denies any motor dysfunction, sensory deficit, or altered speech. MUSCULOSKELETAL: Abnormal gait. PSYCHIATRIC: Had trouble with dementia at baseline and also altered level of consciousness. PHYSICAL EXAMINATION: VITAL SIGNS: Blood pressure at the time of arrival to the hospital was 106/52, pulse of 65, respiration rate of 14, O2 saturation 95% on room air, and temperature 96.4 degrees Fahrenheit. GENERAL: The patient is a very unfortunate 83-year-old gentleman, in no apparent respiratory distress. Awake and alert. HEENT: Atraumatic and normocephalic. Anicteric. Pupils are equal, round, and reactive to light and accommodation. Extraocular muscles intact. NECK: JVP less than 5 cm. No carotid bruit. Carotid upstroke is 2+ bilaterally. CARDIOVASCULAR: Normal S1, S2. There is a 3/6 holosystolic murmur at left sternal border, radiation to the right upper sternal border. LUNGS: Clear to auscultation bilaterally. ABDOMEN: Soft, nontender, and nondistended. No hepatosplenomegaly. Positive bowel sounds. EXTREMITIES: No evidence of edema, clubbing, or cyanosis. LABORATORY AND DIAGNOSTIC DATA: Laboratory findings, WBC is 3.6, hemoglobin is 11.6, hematocrit is 37.9, and platelet count is 124,000. Chemistry showed sodium of 143, potassium is 4.3, chloride 106, bicarbonate 32, BUN of 30, creatinine 1.7, glucose is 116, and troponin I is 0.091 and 0.108. Toxicology showed negative urine tox. INR was 1.1. A 12-lead electrocardiogram showed sinus rhythm at a rate of [address] and T-wave abnormalities. Chest x-ray shows no acute cardiopulmonary disease. A 2D echocardiogram is significant for mild anteroseptal hypokinesia with LVEF approximately 45% to 50%, diminished aortic valve cusp excursion with presence of aortic valve sclerosis, mild aortic and mitral valve regurgitation, right ventricular systolic pressure measured at 30 mmHg, and also grade 1 LV diastolic dysfunction. ASSESSMENT AND PLAN: The patient is a very unfortunate 83-year-old gentleman, who is seen in Cardiology consultation. 1. Slight elevation of troponin I level, could be secondary to type 2 non-ST elevation myocardial infarction, could be secondary to the ischemia or other etiologies such as hypovolemia and dehydration. The patient had responded well to hydration with a drop of creatinine to 1.2 from its arrival. A 12-lead electrocardiogram does not show any evidence of ischemia. A 2D echocardiography showed LVEF approximately 45%. Cardiac catheterization is a good modality, however, the patient has refused this in the past when offered to him. We will discuss with the patient's family member again if the patient is agreeable, he would be required to be transferred to [facility] [place] for cardiac catheterization. In the meantime, the patient will be continued on aspirin. Statins will be added to the regimen. The patient's blood pressure required to be better controlled with a goal of 120/80 and heart rate of 60. 2. History of hypertension. 3. History of paroxysmal atrial fibrillation, currently on aspirin only. 4. History of GI bleed. 5. History of dementia. I would like to thank, Dr. Garcia, for allowing me to participate in the care of this patient. Mitch Meek M.D. DR: ELADIO JOB#: [id number] CC:
--- NOTE | 2018-10-22 02:30 | Consultation ---
DATE OF CONSULTATION: 10/21/2018 NOTE: POOR AUDIO CONSULTING PHYSICIAN: Ashley Flood M.D. HISTORY OF PRESENT ILLNESS: The patient is an 83-year-old male patient who lives at home with his daughter, but yesterday he became weak, lethargic, confused. He was brought into the ER because of his sudden altered mental status and decline in cognition, and so there was a psychiatric consultation requested to his altered mental status and confusion. I assessed the patient at bedside. He is very confused and disorganized. His cognition has declined significantly below baseline and he has got no logical plan for his own self-care. He has hopelessness, helplessness, low energy, poor appetite, and except for BiPAP. MEDICAL HISTORY: This patient has a history of anemia, pancytopenia, history of CVA, non-ST segment elevated [place]. He has hypertension. He is status post CVA. ALLERGIES: He has allergies to penicillin. PSYCHOTROPIC MEDICATIONS ON ADMISSION: This patient is currently on a medication regimen of Seroquel at a dose of 50 mg every day at lunch time, Celexa a dose of 20 mg daily, he is also on Seroquel 100 mg twice a day. The patient is also on Ativan 0.5 mg q.4 h. IV p.r.n. SUBSTANCE ABUSE HISTORY: The patient has occasional alcohol, but no history of any drug use. SOCIAL HISTORY: The patient is currently living with his family. Financially supported by his family, [email or web address], and Medicare. PSYCHIATRIC HISTORY: He does have a history of depression, rule out dementia with psychosis, rule out pseudodementia. No known previous psychiatric admissions. MENTAL STATUS EXAMINATION: This is an 83-year-old male patient. Appearance is disheveled. Attitude, irritable and agitated. Affect, guarded and restricted. Intellect poor. Behavior is . Mood depressed and anxious. Motor activity, psychomotor agitation. Attention span is poor. . Orientation x2. He is oriented to person and place, but not time and situation. Speech is low volume and slurred. Thought process, disorganized and illogical. Thought content, he has some paranoia. As far as his perception, poor. He does have some paranoia. Abstract reasoning is poor because he does not . As far as his insight, it is poor. He does not recognize he has a psych disorder. Judgment is poor because he cannot make correct decisions for himself. There are no signs of any suicidal or homicidal ideations, but his short-term memory is 2/3 recall with a 5-minute delay with good short-term memory. Long-term memory is intact based on the knowledge of long-term events such as the high school he went to. Logical, he is poor . DIAGNOSES: 1. Major depressive disorder, mild, recurrent with psychosis, rule out dementia with psychosis, rule out pseudodementia. 2. Medical history, hypertension, status post CVA, COPD. 3. Psychosocial stressors, financial. 4. Functional impairment is moderate. PLAN: Plan for this patient is I am going to continue treatment with Seroquel 100 mg b.i.d. and 50 mg every noon, Celexa 20 mg daily, Ativan 0.5 mg IV q.4 h. p.r.n. anxiety and agitation and also in addition to this, I am also going to add a dose of Namenda to the patient's med regimen to help prevent any further decline in his cognition and also 20 minutes of cognitive behavioral therapy provided for this patient to help his automatic negative thoughts and help him convert his negative thoughts to more positive thoughts and to reduce depression, anxiety, and mood lability and also help him have a more adaptive behavioral pattern. Chart is reviewed and discussed with staff. The patient is seen and assessed at bedside. I would like to thank Dr. Mina Garcia for this interesting consultation. Ashley Flood M.D. DR: ANDIE JOB#: [id number] CC:
--- NOTE | 2018-10-22 02:31 | NUR ---
NURSE NOTES: patient in bed asleep in bed with no S/S of distress noted. Will continue to closely monitor
[2018-10-22 04:00] VITALS: BP 142/67
[2018-10-22] MEDS: D5 1/2NS 1,000 ML IV SCH (05:51)
[2018-10-22 06:45] LABS: BASOPHILS % (AUTO) 1.3 % (0.0-2.0); EOSINOPHILS % (AUTO) 3.5 % (0.0-3.0); HEMATOCRIT 35.7 % (42.0-52.0); LYMPHOCYTES % (AUTO) 47.5 % (20.0-45.0); MEAN CORPUSCULAR VOLUME 78 FL (80-99); MONOCYTES % (AUTO) 12.2 % (1.0-10.0); NEUTROPHILS % (AUTO) 35.5 % (45.0-75.0); PLATELET COUNT 116 K/UL (150-450); RED BLOOD COUNT 4.59 M/UL (4.70-6.10); RED CELL DISTRIBUTION WIDTH 13.5 % (11.6-14.8); WHITE BLOOD COUNT 3.8 K/UL (4.8-10.8)
[2018-10-22 07:13] LABS: ANION GAP 9 mmol/L (5-15); BLOOD UREA NITROGEN 18 mg/dL (7-18); CALCIUM 9.5 MG/DL (8.5-10.1); CARBON DIOXIDE 29 MMOL/L (21-32); CHLORIDE 106 MMOL/L (98-107); CREATININE 1.2 MG/DL (0.55-1.30); POTASSIUM 3.9 MMOL/L (3.5-5.1); SODIUM 144 MMOL/L (136-145)
--- NOTE | 2018-10-22 07:35 | NUR ---
NURSE NOTES: Received report from CHRISTOPHE Cervantes. in the bed resting. cardiac rehabilitation program director in place. IV is in place on RFA, fluids running. No acute distress noted. Bed is in the lowest position, brakes engaged for safety. Call light is within reach. Bed alarm is on. Will continue to closely monitor patient and continue with the plan of care.
--- NOTE | 2018-10-22 07:36 | NUR ---
HAND-OFF: Report given to Mireya Miller RN. Patient in bed in stable condition with no S/S of distress at this time. Endorsed plan of care
[2018-10-22 08:00] VITALS: BP 159/78
[2018-10-22] MEDS: Citalopram Hydrobromide 10mg Tab ORAL SCH (08:20)
[2018-10-22] MEDS: Aspirin Baby 81mg ORAL SCH (08:20)
[2018-10-22] MEDS: Lisinopril 20mg tab ORAL SCH (08:21)
[2018-10-22] MEDS: Memantine 5 MG TAB ORAL SCH ×2 (08:21→17:36)
[2018-10-22] MEDS: Metoprolol 25mg tab ORAL SCH ×2 (08:22→21:00)
[2018-10-22] MEDS: Heparin 5000 units/ml inj SUBQ SCH ×2 (08:24→21:00)
--- NOTE | 2018-10-22 09:06 | Nephrology Progress Note ---
Assessment/Plan Assessment 1. Acute renal failure, 2. Hypertension, well controlled at this time. 3. History of AFib. 4. History of dementia. Plan plan to continue current med monitoring renal function avoid NSAID replace electrolyte as need it Subjective Constitutional: Reports: no symptoms HEENT: Reports: no symptoms Genitourinary: Reports: no symptoms Neurologic/Psychiatric: Reports: no symptoms Subjective no acute events Objective Objective Last 24 Hour Vital Signs Date Time Temp Pulse Resp B/P (MAP) Pulse Ox O2 Delivery O2 Flow Rate FiO2 10/22/18 08:22 79 159/78 10/22/18 08:21 159/78 10/22/18 04:00 54 10/22/18 04:00 97.7 69 18 142/67 (92) 98 10/22/18 00:00 57 10/22/18 00:00 97.3 57 18 128/85 (99) 99 10/21/18 21:00 Room Air 10/21/18 20:23 102 20 Room Air 21 10/21/18 20:19 114 119/77 10/21/18 20:00 117 10/21/18 20:00 97.6 114 18 119/77 (91) 98 10/21/18 16:00 98.3 62 20 120/60 (80) 99 10/21/18 16:00 83 10/21/18 12:00 98.0 85 20 145/75 (98) 99 10/21/18 12:00 96 10/21/18 10:20 74 141/81 10/21/18 10:19 141/81 10/21/18 09:30 97.8 74 20 141/81 (101) 98 Intake and Output 10/21/18 10/22/18 18:59 06:59 Output Total 100 ml Balance -100 ml Output Urine Total 100 ml # Voids 5 2 # Bowel Movements 1 Laboratory Tests 10/22/18 04:50: White Blood Count 3.8L, Red Blood Count 4.59L, Hemoglobin 11.0L, Hematocrit 35.7L, Mean Corpuscular Volume 78L, Mean Corpuscular Hemoglobin 24.0L, Mean Corpuscular Hemoglobin Concent 30.9L, Red Cell Distribution Width 13.5, Platelet Count 116L, Mean Platelet Volume 10.0, Neutrophils (%) (Auto) 35.5L, Lymphocytes (%) (Auto) 47.5H, Monocytes (%) (Auto) 12.2H, Eosinophils (%) (Auto ) 3.5H, Basophils (%) (Auto) 1.3, Sodium Level 144, Potassium Level 3.9, Chloride Level 106, Carbon Dioxide Level 29, Anion Gap 9, Blood Urea Nitrogen 18 , Creatinine 1.2, Estimat Glomerular Filtration Rate , Glucose Level 90, Calcium Level 9.5, Free Prostate Specific Antigen [Pending], Percent Free Prostate Specific Ag [Pending], Prostate Specific Antigen Total [Pending] Height (Feet): 5 Height (Inches): 8.00 Weight (Pounds): 118 Objective HEAD AND NECK: No JVP. No LAD. No thyromegaly. Extraocular movement intact. Pupils are reactive to light and accommodation. LUNGS: Clear to auscultation. CARDIAC: Regular rate and rhythm. S1 and S2. No murmur. No rub. ABDOMEN: Soft, nontender, and nondistended. EXTREMITIES: No edema. No clubbing. No cyanosis. Teodora Lewis MD Oct 22, 2018 09:06
--- NOTE | 2018-10-22 09:27 | NUR ---
CASE MANAGEMENT:REVIEW 10/22/18 SI: NSTEMI. 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
--- NOTE | 2018-10-22 10:50 | NUR ---
RD ASSESSMENT & RECOMMENDATIONS SEE CARE ACTIVITY FOR COMPLETE ASSESSMENT DAILY ESTIMATED NEEDS: Needs based on Underweight, cardiac 55kg 30-35 kcals/kg 8222-3781 total kcals 1-1.2 g protein/kg 55-66 g total protein 25-30 mL/kg 2260-3768 total fluid mLs NUTRITION DIAGNOSIS: Swallowing difficulty r/t dysphagia and h/o CVA, as evidenced by APPLIED STATISTICIAN eval, recs for chopped texture diet. CURRENT DIET: Regular MS chopped w/ thin liquids PO DIET RECOMMENDATIONS: LOW NA DIET (texture per APPLIED STATISTICIAN) ADDITIONAL RECOMMENDATIONS: 1) RE-calibrate bed scale, pt w/ significant wt shift per EMR: 63.5kg-> 53.5kg 2) Add ENSURE 1 bottle BID in b/w meals (350 kcal/ 20g pro each) 3) Monitor for continued good tolerance of diet and po intake
--- NOTE | 2018-10-22 10:56 | Pulmonology Progress Note ---
Assessment/Plan Problems: (1) NSTEMI (non-ST elevated myocardial infarction) (2) Protein-calorie malnutrition, severe (3) ATN (acute tubular necrosis) (4) Advanced dementia Assessment/Plan serial ekg, troponin, ( higher now) echocardiogram reviewed EF 55%, mild diastolic dysfunction. On Seroquel bid and lunch time iv fluids renal f/u pt/ot evaluation dvt prophylaxis f/u cardiology recommendation, who thinks pt need cardiac cath. depending on goal of care Subjective ROS Limited/Unobtainable: No Constitutional: Reports: no symptoms HEENT: Repors: no symptoms Allergies: Coded Allergies: PENICILLINS (Verified Allergy, Unknown, 01/30/16) Uncoded Allergies: PENICLLINS (Allergy, Unknown, 10/19/18) Objective Last 24 Hour Vital Signs Date Time Temp Pulse Resp B/P (MAP) Pulse Ox O2 Delivery O2 Flow Rate FiO2 10/22/18 10:36 79 159/78 10/22/18 09:00 Room Air 10/22/18 08:22 79 159/78 10/22/18 08:21 159/78 10/22/18 08:00 97.4 79 18 159/78 (105) 100 10/22/18 08:00 62 10/22/18 04:00 54 10/22/18 04:00 97.7 69 18 142/67 (92) 98 10/22/18 00:00 57 10/22/18 00:00 97.3 57 18 128/85 (99) 99 10/21/18 21:00 Room Air 10/21/18 20:23 102 20 Room Air 21 10/21/18 20:19 114 119/77 10/21/18 20:00 117 10/21/18 20:00 97.6 114 18 119/77 (91) 98 10/21/18 16:00 98.3 62 20 120/60 (80) 99 10/21/18 16:00 83 10/21/18 12:00 98.0 85 20 145/75 (98) 99 10/21/18 12:00 96 Intake and Output 10/21/18 10/22/18 18:59 06:59 Output Total 100 ml Balance -100 ml Output Urine Total 100 ml # Voids 5 2 # Bowel Movements 1 General Appearance: cachetic HEENT: normocephalic, atraumatic Respiratory/Chest: chest wall non-tender, lungs clear Cardiovascular: normal peripheral pulses, regular rhythm Abdomen: normal bowel sounds, soft, non tender Genitourinary: normal external genitalia Extremities: no clubbing Laboratory Tests 10/22/18 04:50: White Blood Count 3.8L, Red Blood Count 4.59L, Hemoglobin 11.0L, Hematocrit 35.7L, Mean Corpuscular Volume 78L, Mean Corpuscular Hemoglobin 24.0L, Mean Corpuscular Hemoglobin Concent 30.9L, Red Cell Distribution Width 13.5, Platelet Count 116L, Mean Platelet Volume 10.0, Neutrophils (%) (Auto) 35.5L, Lymphocytes (%) (Auto) 47.5H, Monocytes (%) (Auto) 12.2H, Eosinophils (%) (Auto ) 3.5H, Basophils (%) (Auto) 1.3, Sodium Level 144, Potassium Level 3.9, Chloride Level 106, Carbon Dioxide Level 29, Anion Gap 9, Blood Urea Nitrogen 18 , Creatinine 1.2, Estimat Glomerular Filtration Rate , Glucose Level 90, Calcium Level 9.5, Free Prostate Specific Antigen [Pending], Percent Free Prostate Specific Ag [Pending], Prostate Specific Antigen Total [Pending] Current Medications Medications (Trade) Dose Ordered Sig/Lea Route PRN Reason Start Time Stop Time Status Last Admin Dose Admin Acetaminophen (Tylenol) 650 mg Q4H PRN ORAL fever 10/19/18 18:00 11/18/18 17:59 Al Hydroxide/Mg Hydroxide (Mylanta II) 30 ml Q6H PRN ORAL dyspepsia 10/19/18 18:00 11/18/18 17:59 Albuterol/ Ipratropium (Albuterol/ Ipratropium) 3 ml Q4H PRN HHN Shortness of Breath 10/19/18 18:00 10/24/18 17:59 Amlodipine Besylate (Norvasc) 5 mg DAILY ORAL 10/20/18 09:00 11/19/18 08:59 10/22/18 10:36 Aspirin (ASA) 81 mg DAILY ORAL 10/20/18 09:00 11/19/18 08:59 10/22/18 08:20 Atorvastatin Calcium (Lipitor) 80 mg BEDTIME ORAL 10/21/18 21:00 11/20/18 20:59 10/21/18 20:18 Citalopram Hydrobromide (celeXA) 20 mg DAILY ORAL 10/20/18 09:00 11/19/18 08:59 10/22/18 08:20 Clonidine HCl (Catapres Tab) 0.1 mg Q4H PRN ORAL For High Blood Pressure 10/19/18 18:00 11/18/18 17:59 Dextrose (Dextrose 50%) 25 ml Q30M PRN IV Hypoglycemia 10/19/18 18:00 11/18/18 17:59 Dextrose (Dextrose 50%) 50 ml Q30M PRN IV Hypoglycemia 10/19/18 18:00 11/18/18 17:59 Dextrose/Sodium Chloride 1,000 ml @ 50 mls/hr Q20H IV 10/19/18 17:54 11/18/18 17:53 10/22/18 05:51 Heparin Sodium (Porcine) (Heparin 5000 units/ml) 5,000 units EVERY 12 HOURS SUBQ 10/19/18 21:00 11/18/18 20:59 10/22/18 08:24 Lisinopril (Prinivil) 20 mg DAILY ORAL 10/20/18 09:00 11/19/18 08:59 10/22/18 08:21 Lorazepam (Ativan 2mg/ml 1ml) 0.5 mg Q4H PRN IV For Anxiety 10/19/18 18:00 10/26/18 17:59 10/22/18 08:24 Memantine (Namenda) 5 mg BID ORAL 10/21/18 09:00 11/20/18 08:59 10/22/18 08:21 Metoprolol Tartrate (Lopressor) 25 mg Q12HR ORAL 10/21/18 21:00 11/20/18 20:59 10/22/18 08:22 Morphine Sulfate (Morphine Sulfate) 1 mg Q4H PRN IVP For Pain 7-10 10/19/18 18:00 10/26/18 17:59 Nitroglycerin (Ntg) 0.4 mg Q5M X 3 DOSES PRN SL Prn Chest Pain 10/19/18 18:00 11/18/18 17:59 Ondansetron HCl (Zofran) 4 mg Q6H PRN IVP Nausea & Vomiting 10/19/18 18:00 4/16/19 17:59 Polyethylene Glycol (Miralax) 17 gm HSPRN PRN ORAL Constipation 10/19/18 18:00 11/18/18 17:59 Promethazine HCl/ Codeine (Phenergan with Codeine) 5 ml Q4H PRN ORAL For Cough 10/19/18 18:00 11/18/18 17:59 Quetiapine Fumarate (SEROquel) 50 mg QLUNCH ORAL 10/20/18 11:30 11/19/18 11:29 10/21/18 12:22 Quetiapine Fumarate (SEROquel) 100 mg BID ORAL 10/19/18 20:02 11/18/18 20:01 10/22/18 08:20 Temazepam (Restoril) 15 mg HSPRN PRN ORAL Insomnia 10/19/18 18:00 10/26/18 17:59 Linda Prater MD Oct 22, 2018 10:56
[2018-10-22 12:00] VITALS: BP 115/61
--- NOTE | 2018-10-22 12:56 | General Progress Note ---
Assessment/Plan Assessment/Plan Assesment and Recs: # Pancytopenia -- multiple etiologies could be related to underlying liver disease, medication-induced, infection versus viral syndrome --> peripheral smear has been ordered and does not show significant abnormalities --> Medications have been reviewed --> Continue to monitor for improvement, trend cbc --> Hep panel and HIV have been negative --> US abd ordered to r/o cirrhosis and hepatosplenomegaly --> consider other causes, infections that could contribute --> reverse isolation if ANC is <2000 --> Give neupogen if ANC <1000 --> Transfuse if hgb <7, with 1 unit prbc --> consider bone marrow biopsy if no other causes are found # Coagulation defect, unspecified aka coagulopathy, multifactorial usually related to poor PO intake versus medications, versus hepatitis v cirrhosis --> administer Vitamin K if patient is bleeding or FFP if the INR is >10 --> hold off on ffp unless active procedure/bleeding, first begin with vit K 10 --> mixing study as needed # Altered mental status with prior CVAs --> consider neuro recs --> on abx # Azotemia is on iv fluids --> appreciate renal recs --> as per pulgarcia dykes The timing of this note does not necessarily reflect the time of the patient was seen. Greatly appreciate consultation! Subjective Allergies: Coded Allergies: PENICILLINS (Verified Allergy, Unknown, 01/30/16) Uncoded Allergies: PENICLLINS (Allergy, Unknown, 10/19/18) Subjective 10/22: seen by bedside, no acute distress, plt 116 Objective Last 24 Hour Vital Signs Date Time Temp Pulse Resp B/P (MAP) Pulse Ox O2 Delivery O2 Flow Rate FiO2 10/22/18 10:36 79 159/78 10/22/18 09:00 Room Air 10/22/18 08:22 79 159/78 10/22/18 08:21 159/78 10/22/18 08:00 97.4 79 18 159/78 (105) 100 10/22/18 08:00 62 10/22/18 04:00 54 10/22/18 04:00 97.7 69 18 142/67 (92) 98 10/22/18 00:00 57 10/22/18 00:00 97.3 57 18 128/85 (99) 99 10/21/18 21:00 Room Air 10/21/18 20:23 102 20 Room Air 21 10/21/18 20:19 114 119/77 10/21/18 20:00 117 10/21/18 20:00 97.6 114 18 119/77 (91) 98 10/21/18 16:00 98.3 62 20 120/60 (80) 99 10/21/18 16:00 83 Intake and Output 10/21/18 10/22/18 18:59 06:59 Output Total 100 ml Balance -100 ml Output Urine Total 100 ml # Voids 5 2 # Bowel Movements 1 Laboratory Tests 10/22/18 04:50: White Blood Count 3.8L, Red Blood Count 4.59L, Hemoglobin 11.0L, Hematocrit 35.7L, Mean Corpuscular Volume 78L, Mean Corpuscular Hemoglobin 24.0L, Mean Corpuscular Hemoglobin Concent 30.9L, Red Cell Distribution Width 13.5, Platelet Count 116L, Mean Platelet Volume 10.0, Neutrophils (%) (Auto) 35.5L, Lymphocytes (%) (Auto) 47.5H, Monocytes (%) (Auto) 12.2H, Eosinophils (%) (Auto ) 3.5H, Basophils (%) (Auto) 1.3, Sodium Level 144, Potassium Level 3.9, Chloride Level 106, Carbon Dioxide Level 29, Anion Gap 9, Blood Urea Nitrogen 18 , Creatinine 1.2, Estimat Glomerular Filtration Rate , Glucose Level 90, Calcium Level 9.5, Free Prostate Specific Antigen [Pending], Percent Free Prostate Specific Ag [Pending], Prostate Specific Antigen Total [Pending] Height (Feet): 5 Height (Inches): 8.00 Weight (Pounds): 118 Objective PE: General Appearance: well appearing, no apparent distress Head: normocephalic Eyes: bilateral eye normal inspection, bilateral eye PERRL ENT: dry mucus membranes Neck: supple Respiratory: lungs clear, normal breath sounds Cardiovascular: regular rate, rhythm Gastrointestinal: normal inspection, normal bowel sounds, nd Musculoskeletal: back normal, normal range of motion Neurologic: responsive, DTRs symmetric, sensory intact Psychiatric: depressed affect Jatin Márquez MD Oct 22, 2018 12:56
--- NOTE | 2018-10-22 14:53 | General Progress Note ---
Assessment/Plan Problem List: (1) NSTEMI (non-ST elevated myocardial infarction) ICD Codes: I21.4 - Non-ST elevation (NSTEMI) myocardial infarction SNOMED: 79813680, 844051020 (2) Altered mental status ICD Codes: R41.82 - Altered mental status, unspecified SNOMED: 780280596 Qualifiers: Qualified Codes: R40.1 - Stupor (3) Dehydration ICD Codes: E86.0 - Dehydration SNOMED: 36174210, 594164618, 330872435 (4) Renal insufficiency ICD Codes: N28.9 - Disorder of kidney and ureter, unspecified SNOMED: 665307372, 529247653 (5) Elevated troponin ICD Codes: R74.8 - Abnormal levels of other serum enzymes SNOMED: 235666783, 883229953, 595110026 (6) Advanced dementia ICD Codes: F03.90 - Unspecified dementia without behavioral disturbance SNOMED: 67591982 (7) Protein-calorie malnutrition, severe ICD Codes: E43 - Unspecified severe protein-calorie malnutrition SNOMED: 451378973, 533763825, 696991557 Status: stable, progressing Assessment/Plan pt diet pain control cardio f/u cbc bmp am dc plan snf Subjective Constitutional: Reports: weakness Allergies: Coded Allergies: PENICILLINS (Verified Allergy, Unknown, 01/30/16) Uncoded Allergies: PENICLLINS (Allergy, Unknown, 10/19/18) All Systems: reviewed and negative except above Subjective sleepy calm in bed Objective Last 24 Hour Vital Signs Date Time Temp Pulse Resp B/P (MAP) Pulse Ox O2 Delivery O2 Flow Rate FiO2 10/22/18 12:00 51 10/22/18 12:00 97.8 53 18 115/61 (79) 97 10/22/18 10:36 79 159/78 10/22/18 09:00 Room Air 10/22/18 08:22 79 159/78 10/22/18 08:21 159/78 10/22/18 08:00 97.4 79 18 159/78 (105) 100 10/22/18 08:00 62 10/22/18 04:00 54 10/22/18 04:00 97.7 69 18 142/67 (92) 98 10/22/18 00:00 57 10/22/18 00:00 97.3 57 18 128/85 (99) 99 10/21/18 21:00 Room Air 10/21/18 20:23 102 20 Room Air 21 10/21/18 20:19 114 119/77 10/21/18 20:00 117 10/21/18 20:00 97.6 114 18 119/77 (91) 98 10/21/18 16:00 98.3 62 20 120/60 (80) 99 10/21/18 16:00 83 Intake and Output 10/21/18 10/22/18 19:00 07:00 Output Total 100 ml Balance -100 ml Output Urine Total 100 ml # Voids 5 2 # Bowel Movements 1 Laboratory Tests 10/22/18 04:50: White Blood Count 3.8L, Red Blood Count 4.59L, Hemoglobin 11.0L, Hematocrit 35.7L, Mean Corpuscular Volume 78L, Mean Corpuscular Hemoglobin 24.0L, Mean Corpuscular Hemoglobin Concent 30.9L, Red Cell Distribution Width 13.5, Platelet Count 116L, Mean Platelet Volume 10.0, Neutrophils (%) (Auto) 35.5L, Lymphocytes (%) (Auto) 47.5H, Monocytes (%) (Auto) 12.2H, Eosinophils (%) (Auto ) 3.5H, Basophils (%) (Auto) 1.3, Sodium Level 144, Potassium Level 3.9, Chloride Level 106, Carbon Dioxide Level 29, Anion Gap 9, Blood Urea Nitrogen 18 , Creatinine 1.2, Estimat Glomerular Filtration Rate , Glucose Level 90, Calcium Level 9.5, Free Prostate Specific Antigen [Pending], Percent Free Prostate Specific Ag [Pending], Prostate Specific Antigen Total [Pending] Height (Feet): 5 Height (Inches): 8.00 Weight (Pounds): 118 General Appearance: lethargic EENT: normal ENT inspection Neck: normal alignment Cardiovascular: normal peripheral pulses, normal rate, regular rhythm Respiratory/Chest: chest wall non-tender, lungs clear, normal breath sounds Abdomen: normal bowel sounds, non tender, soft Extremities: normal inspection Edema: no edema noted Arm (L), no edema noted Arm (R), no edema noted Leg (L), no edema noted Leg (R), no edema noted Pedal (L), no edema noted Pedal (R), no edema noted Generalized Neurologic: motor weakness Skin: normal pigmentation, warm/dry Mina Garcia DO Oct 22, 2018 14:53
[2018-10-22 16:00] VITALS: BP 132/66
--- NOTE | 2018-10-22 19:15 | Progress Note ---
DATE: 10/22/2018 DATE: 10/22/2018 SUBJECTIVE: This is an 83-year-old male patient, who . He still is lethargic and confused. He has altered mental status and has declined cognition below his baseline. That is why his attending has requested daily psychiatric consultation for this patient. MENTAL STATUS EXAMINATION: This is an 83-year-old male. Appearance is disheveled. Attitude, irritable and agitated. Affect, guarded and restricted. Intellect, poor. Mood, depressed and anxious. Motor activity, psychomotor agitation. Attention span is poor. Orientation x2. Speech is low volume and slurred. Thought process, disorganized and illogical. Insight and judgment poor. DIAGNOSIS: 1. Major depressive disorder, mild, recurrent with psychotic features. 2. Rule out dementia with psychosis. 3. Rule out pseudodementia. PLAN: Plan is to treat this patient with psychotropic medication regimen consisting of Seroquel Celexa 20 mg daily, and Ativan 0.5 mg IV q.4 hours p.r.n. anxiety and agitation. Celexa 20 mg daily and provide him with 20 minutes of cognitive behavioral therapy to help him identify automatic negative thoughts and help him convert those negative thoughts to more positive thoughts to reduce depression, anxiety, and suicidality. In addition to that, I am going to treat this patient with a medication regimen consisting of Namenda at a dose of 5 mg twice a day to prevent any further decline in his cognition. Provided him with 20 minutes of reality-based supportive psychotherapy including cognitive behavioral therapy to help him identify automatic negative thoughts and help him convert his negative thoughts to more positive thoughts and to reduce depression, anxiety, and suicidality. Also cognitive behavioral therapy to help him have more adaptive behavioral pattern. Chart reviewed. Discussed with staff. Seen and assessed in his room. Ashley Flood M.D. DR: CARMEN JOB#: [id number] CC:
--- NOTE | 2018-10-22 19:35 | NUR ---
NURSE NOTES: Report received from CHRISTOPHE Aldana. Pt in stable condition with no signs of cardiopulmonary distress. pt lying comfortably in bed. IV access intact and patent. Bed in the lowest position, bed brakes engaged, side rails up x3, call light within reach. Will continue to monitor.
--- NOTE | 2018-10-22 19:39 | NUR ---
HAND-OFF: Report given to CHRISTOPHE Mclaughlin.Endorsed plan of care.
[2018-10-22 20:00] VITALS: BP 142/66
[2018-10-22] MEDS: Atorvastatin 80mg tab ORAL SCH (21:03)
--- NOTE | 2018-10-22 23:49 | Cardiology Progress Note ---
Assessment/Plan Assessment/Plan 1. Slight elevation of troponin I level, could be secondary to type 2 non-ST elevation myocardial infarction, could be secondary to the ischemia or other etiologies such as hypovolemia and dehydration. A 12-lead electrocardiogram does not show any evidence of ischemia. LVEF is approximately 45%, refused cardiac cath in the past. 2. History of hypertension. 3. History of paroxysmal atrial fibrillation, in SR currently, not on DOAC due to prior GI bleed 4. History of GI bleed. 5. History of dementia. Subjective Subjective Sinus bradycardia at rate of 59. Objective Last 24 Hour Vital Signs Date Time Temp Pulse Resp B/P (MAP) Pulse Ox O2 Delivery O2 Flow Rate FiO2 10/22/18 21:00 59 142/66 10/22/18 20:00 97.9 59 18 142/66 (91) 99 10/22/18 20:00 58 10/22/18 16:00 97.3 60 18 132/66 (88) 96 10/22/18 16:00 60 10/22/18 12:00 51 10/22/18 12:00 97.8 53 18 115/61 (79) 97 10/22/18 10:36 79 159/78 10/22/18 09:32 89 18 Room Air 21 10/22/18 09:00 Room Air 10/22/18 08:22 79 159/78 10/22/18 08:21 159/78 10/22/18 08:00 97.4 79 18 159/78 (105) 100 10/22/18 08:00 62 10/22/18 04:00 54 10/22/18 04:00 97.7 69 18 142/67 (92) 98 10/22/18 00:00 57 10/22/18 00:00 97.3 57 18 128/85 (99) 99 Intake and Output 10/21/18 10/22/18 19:00 07:00 Output Total 100 ml Balance -100 ml Output Urine Total 100 ml # Voids 5 2 # Bowel Movements 1 2D Echo: EF 55%, Mild LVH, Mild AR, grade I LVDD, RVSP 30 mmHg, GM 1.6 cm2 Laboratory Tests Test 10/22/18 04:50 White Blood Count 3.8 K/UL (4.8-10.8) L Red Blood Count 4.59 M/UL (4.70-6.10) L Hemoglobin 11.0 G/DL (14.2-18.0) L Hematocrit 35.7 % (42.0-52.0) L Mean Corpuscular Volume 78 FL (80-99) L Mean Corpuscular Hemoglobin 24.0 PG (27.0-31.0) L Mean Corpuscular Hemoglobin Concent 30.9 G/DL (32.0-36.0) L Red Cell Distribution Width 13.5 % (11.6-14.8) Platelet Count 116 K/UL (150-450) L Mean Platelet Volume 10.0 FL (6.5-10.1) Neutrophils (%) (Auto) 35.5 % (45.0-75.0) L Lymphocytes (%) (Auto) 47.5 % (20.0-45.0) H Monocytes (%) (Auto) 12.2 % (1.0-10.0) H Eosinophils (%) (Auto) 3.5 % (0.0-3.0) H Basophils (%) (Auto) 1.3 % (0.0-2.0) Sodium Level 144 MMOL/L (136-145) Potassium Level 3.9 MMOL/L (3.5-5.1) Chloride Level 106 MMOL/L (98-107) Carbon Dioxide Level 29 MMOL/L (21-32) Anion Gap 9 mmol/L (5-15) Blood Urea Nitrogen 18 mg/dL (7-18) Creatinine 1.2 MG/DL (0.55-1.30) Estimat Glomerular Filtration Rate mL/min (>60) Glucose Level 90 MG/DL (74-106) Calcium Level 9.5 MG/DL (8.5-10.1) Free Prostate Specific Antigen Pending Percent Free Prostate Specific Ag Pending Prostate Specific Antigen Total Pending Objective HEENT: Atraumatic and normocephalic. Anicteric. Pupils are equal, round, and reactive to light and accommodation. Extraocular muscles intact. NECK: JVP less than 5 cm. No carotid bruit. Carotid upstroke is 2+ bilaterally. CARDIOVASCULAR: Normal S1, S2. There is a 3/6 holosystolic murmur at left sternal border, radiation to the right upper sternal border. LUNGS: Clear to auscultation bilaterally. ABDOMEN: Soft, nontender, and nondistended. No hepatosplenomegaly. Positive bowel sounds. EXTREMITIES: No evidence of edema, clubbing, or cyanosis. Mitch Meek MD Oct 22, 2018 23:49
[2018-10-23] VITALS: BP 139/66
[2018-10-23] MEDS: D5 1/2NS 1,000 ML IV SCH ×2 (01:54→06:15)
[2018-10-23 04:00] VITALS: BP 157/73
[2018-10-23 07:01] LABS: ALANINE AMINOTRANSFERASE 24 U/L (12-78); ALBUMIN 3.4 G/DL (3.4-5.0); ALBUMIN/GLOBULIN RATIO 0.9 (1.0-2.7); ALKALINE PHOSPHATASE 82 U/L (46-116); ANION GAP 7 mmol/L (5-15); ASPARTATE AMINO TRANSFERASE 16 U/L (15-37); BILIRUBIN,TOTAL 0.3 MG/DL (0.2-1.0); BLOOD UREA NITROGEN 20 mg/dL (7-18); CALCIUM 9.5 MG/DL (8.5-10.1); CARBON DIOXIDE 32 MMOL/L (21-32); CHLORIDE 105 MMOL/L (98-107); CREATININE 1.2 MG/DL (0.55-1.30); PHOSPHORUS 3.1 MG/DL (2.5-4.9); POTASSIUM 4.2 MMOL/L (3.5-5.1); SODIUM 143 MMOL/L (136-145)
[2018-10-23 07:20] LABS: BASOPHILS % (AUTO) 1.4 % (0.0-2.0); EOSINOPHILS % (AUTO) 3.4 % (0.0-3.0); HEMATOCRIT 39.1 % (42.0-52.0); HEMOGLOBIN 11.9 G/DL (14.2-18.0); LYMPHOCYTES % (AUTO) 47.5 % (20.0-45.0); MEAN CORPUSCULAR VOLUME 78 FL (80-99); MONOCYTES % (AUTO) 11.5 % (1.0-10.0); NEUTROPHILS % (AUTO) 36.2 % (45.0-75.0); PLATELET COUNT 112 K/UL (150-450); RED BLOOD COUNT 5.02 M/UL (4.70-6.10); RED CELL DISTRIBUTION WIDTH 13.5 % (11.6-14.8)
--- NOTE | 2018-10-23 07:20 | NUR ---
NURSE NOTES: RECEIVED BED SIDE REPORT FROM DAYANA SAEED OF [facility] SHIFT STAFF. RECEIVED PT WITH HOB ELEVATED 45 DEGREE ,CONFUSED BUT ABLE TO FALLOW SIMPLE COMMANDS,NO S/S OF CP OR ANY DISCOMFORT NOTED AT THIS TIME.PT REPOSITIONED IN BED AND MADE COMFORTABLE POSSIBLE. PT RECEIVING IVF,S D51/2 NS RUNNING @ 50CC/HRS INFUSSING WELL CONNECTED ON LT HAND G# 22 H.L.NO ACUTE DISTRESS NOTED AT THIS TIME.WILL CONT TO MONITOR.
--- NOTE | 2018-10-23 07:48 | NUR ---
HAND-OFF: Report given to CHRISTOPHE Olvera. Plan of care endorsed
[2018-10-23 08:00] VITALS: BP 139/74
--- NOTE | 2018-10-23 09:06 | NUR ---
SALES PLANNING COORDINATOR Co-Signature: Reviewed patient's chart. Reviewed and approved SALES PLANNING COORDINATOR notes
--- NOTE | 2018-10-23 09:06 | Nephrology Progress Note ---
Assessment/Plan Assessment 1. Acute renal failure, 2. Hypertension, well controlled at this time. 3. History of AFib. 4. History of dementia. Plan plan to continue current med monitoring renal function avoid NSAID replace electrolyte as need it Subjective Constitutional: Reports: no symptoms HEENT: Reports: no symptoms Genitourinary: Reports: no symptoms Neurologic/Psychiatric: Reports: no symptoms Subjective no acute events no complaints Objective Objective Last 24 Hour Vital Signs Date Time Temp Pulse Resp B/P (MAP) Pulse Ox O2 Delivery O2 Flow Rate FiO2 10/23/18 08:00 97.3 53 21 139/74 (95) 95 10/23/18 04:00 97.9 54 18 157/73 (101) 99 10/23/18 04:00 50 10/23/18 00:00 97.9 56 18 139/66 (90) 94 10/23/18 00:00 52 10/22/18 21:00 59 142/66 10/22/18 21:00 Room Air 10/22/18 20:00 97.9 59 18 142/66 (91) 99 10/22/18 20:00 58 10/22/18 19:17 80 18 Room Air 21 10/22/18 16:00 97.3 60 18 132/66 (88) 96 10/22/18 16:00 60 10/22/18 12:00 51 10/22/18 12:00 97.8 53 18 115/61 (79) 97 10/22/18 10:36 79 159/78 10/22/18 09:32 89 18 Room Air 21 Intake and Output 10/22/18 10/23/18 19:00 07:00 # Voids 3 2 Laboratory Tests 10/23/18 04:50: White Blood Count 4.0L, Red Blood Count 5.02, Hemoglobin 11.9L, Hematocrit 39.1L , Mean Corpuscular Volume 78L, Mean Corpuscular Hemoglobin 23.7L, Mean Corpuscular Hemoglobin Concent 30.4L, Red Cell Distribution Width 13.5, Platelet Count 112L, Mean Platelet Volume 9.7, Neutrophils (%) (Auto) 36.2L, Lymphocytes (%) (Auto) 47.5H, Monocytes (%) (Auto) 11.5H, Eosinophils (%) (Auto ) 3.4H, Basophils (%) (Auto) 1.4, Erythrocyte Sedimentation Rate 14, Sodium Level 143, Potassium Level 4.2, Chloride Level 105, Carbon Dioxide Level 32, Anion Gap 7, Blood Urea Nitrogen 20H, Creatinine 1.2, Estimat Glomerular Filtration Rate , Glucose Level 78, Calcium Level 9.5, Phosphorus Level 3.1, Magnesium Level 1.8, Total Bilirubin 0.3, Aspartate Amino Transf (AST/SGOT) 16, Alanine Aminotransferase (ALT/SGPT) 24, Alkaline Phosphatase 82, Troponin I 0.115H, Total Protein 7.3, Albumin 3.4, Globulin 3.9, Albumin/Globulin Ratio 0.9L Height (Feet): 5 Height (Inches): 8.00 Weight (Pounds): 118 Objective HEAD AND NECK: No JVP. No LAD. No thyromegaly. Extraocular movement intact. Pupils are reactive to light and accommodation. LUNGS: Clear to auscultation. CARDIAC: Regular rate and rhythm. S1 and S2. No murmur. No rub. ABDOMEN: Soft, nontender, and nondistended. EXTREMITIES: No edema. No clubbing. No cyanosis. Teodora Lewis MD Oct 23, 2018 09:06
--- NOTE | 2018-10-23 09:07 | NUR ---
SOFTWARE DEVELOPER INTERN Co-Signature: Reviewed patient's chart. Reviewed and approved SOFTWARE DEVELOPER INTERN notes Addendum: 10/23/18 at 0908 by JAKE GARCIA PT,MG Amended: Links added.
[2018-10-23] MEDS: Citalopram Hydrobromide 10mg Tab ORAL SCH (09:38)
[2018-10-23] MEDS: Metoprolol 25mg tab ORAL SCH ×2 (09:38→20:27)
[2018-10-23] MEDS: Aspirin Baby 81mg ORAL SCH (09:39)
[2018-10-23] MEDS: Memantine 5 MG TAB ORAL SCH ×2 (09:39→17:35)
[2018-10-23] MEDS: Lisinopril 20mg tab ORAL SCH (09:39)
[2018-10-23] MEDS: Heparin 5000 units/ml inj SUBQ SCH ×2 (09:48→20:27)
--- NOTE | 2018-10-23 11:27 | Pulmonology Progress Note ---
Assessment/Plan Problems: (1) NSTEMI (non-ST elevated myocardial infarction) (2) Protein-calorie malnutrition, severe (3) ATN (acute tubular necrosis) (4) Advanced dementia Assessment/Plan serial ekg, troponin, ( higher now) echocardiogram reviewed EF 55%, mild diastolic dysfunction. grade 1 On Seroquel bid and lunch time renal f/u pt/ot evaluation dvt prophylaxis f/u cardiology recommendation, who thinks pt need cardiac cath. depending on goal of care Subjective ROS Limited/Unobtainable: No Constitutional: Reports: no symptoms HEENT: Repors: no symptoms Allergies: Coded Allergies: PENICILLINS (Verified Allergy, Unknown, 01/30/16) Uncoded Allergies: PENICLLINS (Allergy, Unknown, 10/19/18) Objective Last 24 Hour Vital Signs Date Time Temp Pulse Resp B/P (MAP) Pulse Ox O2 Delivery O2 Flow Rate FiO2 10/23/18 09:39 139/74 10/23/18 09:38 67 139/74 10/23/18 09:37 67 139/74 10/23/18 09:00 Room Air 10/23/18 08:00 97.3 53 21 139/74 (95) 95 10/23/18 08:00 52 10/23/18 04:00 97.9 54 18 157/73 (101) 99 10/23/18 04:00 50 10/23/18 00:00 97.9 56 18 139/66 (90) 94 10/23/18 00:00 52 10/22/18 21:00 59 142/66 10/22/18 21:00 Room Air 10/22/18 20:00 97.9 59 18 142/66 (91) 99 10/22/18 20:00 58 10/22/18 19:17 80 18 Room Air 21 10/22/18 16:00 97.3 60 18 132/66 (88) 96 10/22/18 16:00 60 10/22/18 12:00 51 10/22/18 12:00 97.8 53 18 115/61 (79) 97 Intake and Output 10/22/18 10/23/18 19:00 07:00 # Voids 3 2 Objective General Appearance: cachetic HEENT: normocephalic, atraumatic Respiratory/Chest: chest wall non-tender, lungs clear Cardiovascular: normal peripheral pulses, regular rhythm Abdomen: normal bowel sounds, soft, non tender Genitourinary: normal external genitalia Extremities: no clubbing Laboratory Tests 10/23/18 04:50: White Blood Count 4.0L, Red Blood Count 5.02, Hemoglobin 11.9L, Hematocrit 39.1L , Mean Corpuscular Volume 78L, Mean Corpuscular Hemoglobin 23.7L, Mean Corpuscular Hemoglobin Concent 30.4L, Red Cell Distribution Width 13.5, Platelet Count 112L, Mean Platelet Volume 9.7, Neutrophils (%) (Auto) 36.2L, Lymphocytes (%) (Auto) 47.5H, Monocytes (%) (Auto) 11.5H, Eosinophils (%) (Auto ) 3.4H, Basophils (%) (Auto) 1.4, Erythrocyte Sedimentation Rate 14, Sodium Level 143, Potassium Level 4.2, Chloride Level 105, Carbon Dioxide Level 32, Anion Gap 7, Blood Urea Nitrogen 20H, Creatinine 1.2, Estimat Glomerular Filtration Rate , Glucose Level 78, Calcium Level 9.5, Phosphorus Level 3.1, Magnesium Level 1.8, Total Bilirubin 0.3, Aspartate Amino Transf (AST/SGOT) 16, Alanine Aminotransferase (ALT/SGPT) 24, Alkaline Phosphatase 82, Troponin I 0.115H, Total Protein 7.3, Albumin 3.4, Globulin 3.9, Albumin/Globulin Ratio 0.9L Current Medications Medications (Trade) Dose Ordered Sig/Lea Route PRN Reason Start Time Stop Time Status Last Admin Dose Admin Acetaminophen (Tylenol) 650 mg Q4H PRN ORAL fever 10/19/18 18:00 11/18/18 17:59 Al Hydroxide/Mg Hydroxide (Mylanta II) 30 ml Q6H PRN ORAL dyspepsia 10/19/18 18:00 11/18/18 17:59 Albuterol/ Ipratropium (Albuterol/ Ipratropium) 3 ml Q4H PRN HHN Shortness of Breath 10/19/18 18:00 10/24/18 17:59 Amlodipine Besylate (Norvasc) 5 mg DAILY ORAL 10/20/18 09:00 11/19/18 08:59 10/23/18 09:37 Aspirin (ASA) 81 mg DAILY ORAL 10/20/18 09:00 11/19/18 08:59 10/23/18 09:39 Atorvastatin Calcium (Lipitor) 80 mg BEDTIME ORAL 10/21/18 21:00 11/20/18 20:59 10/22/18 21:03 Citalopram Hydrobromide (celeXA) 20 mg DAILY ORAL 10/20/18 09:00 11/19/18 08:59 10/23/18 09:38 Clonidine HCl (Catapres Tab) 0.1 mg Q4H PRN ORAL For High Blood Pressure 10/19/18 18:00 11/18/18 17:59 Dextrose (Dextrose 50%) 25 ml Q30M PRN IV Hypoglycemia 10/19/18 18:00 11/18/18 17:59 Dextrose (Dextrose 50%) 50 ml Q30M PRN IV Hypoglycemia 10/19/18 18:00 11/18/18 17:59 Dextrose/Sodium Chloride 1,000 ml @ 50 mls/hr Q20H IV 10/19/18 17:54 11/18/18 17:53 10/23/18 06:15 Heparin Sodium (Porcine) (Heparin 5000 units/ml) 5,000 units EVERY 12 HOURS SUBQ 10/19/18 21:00 11/18/18 20:59 10/23/18 09:48 Lisinopril (Prinivil) 20 mg DAILY ORAL 10/20/18 09:00 11/19/18 08:59 10/23/18 09:39 Lorazepam (Ativan 2mg/ml 1ml) 0.5 mg Q4H PRN IV For Anxiety 10/19/18 18:00 10/26/18 17:59 10/22/18 08:24 Memantine (Namenda) 5 mg BID ORAL 10/21/18 09:00 11/20/18 08:59 10/23/18 09:39 Metoprolol Tartrate (Lopressor) 25 mg Q12HR ORAL 10/21/18 21:00 11/20/18 20:59 10/23/18 09:38 Morphine Sulfate (Morphine Sulfate) 1 mg Q4H PRN IVP For Pain 7-10 10/19/18 18:00 10/26/18 17:59 Nitroglycerin (Ntg) 0.4 mg Q5M X 3 DOSES PRN SL Prn Chest Pain 10/19/18 18:00 11/18/18 17:59 Ondansetron HCl (Zofran) 4 mg Q6H PRN IVP Nausea & Vomiting 10/19/18 18:00 11/18/18 17:59 Polyethylene Glycol (Miralax) 17 gm HSPRN PRN ORAL Constipation 10/19/18 18:00 11/18/18 17:59 Promethazine HCl/ Codeine (Phenergan with Codeine) 5 ml Q4H PRN ORAL For Cough 10/19/18 18:00 11/18/18 17:59 Quetiapine Fumarate (SEROquel) 50 mg QLUNCH ORAL 10/20/18 11:30 11/19/18 11:29 10/22/18 12:00 Quetiapine Fumarate (SEROquel) 100 mg BID ORAL 10/19/18 20:02 11/18/18 20:01 10/23/18 09:38 Temazepam (Restoril) 15 mg HSPRN PRN ORAL Insomnia 10/19/18 18:00 10/26/18 17:59 Linda Prater MD Oct 23, 2018 11:27
[2018-10-23 12:00] VITALS: BP 148/77
--- NOTE | 2018-10-23 14:50 | General Progress Note ---
Assessment/Plan Problem List: (1) NSTEMI (non-ST elevated myocardial infarction) ICD Codes: I21.4 - Non-ST elevation (NSTEMI) myocardial infarction SNOMED: 51887144, 096033252 (2) Altered mental status ICD Codes: R41.82 - Altered mental status, unspecified SNOMED: 020651269 Qualifiers: Qualified Codes: R40.1 - Stupor (3) Dehydration ICD Codes: E86.0 - Dehydration SNOMED: 03724430, 584204012, 663169407 (4) Renal insufficiency ICD Codes: N28.9 - Disorder of kidney and ureter, unspecified SNOMED: 267014461, 283248786 (5) Elevated troponin ICD Codes: R74.8 - Abnormal levels of other serum enzymes SNOMED: 736165113, 917653333, 800775128 (6) Advanced dementia ICD Codes: F03.90 - Unspecified dementia without behavioral disturbance SNOMED: 62407686 (7) Protein-calorie malnutrition, severe ICD Codes: E43 - Unspecified severe protein-calorie malnutrition SNOMED: 991695549, 064220232, 782384610 Status: unchanged Assessment/Plan pt diet pain control cardio f/u cbc bmp am dc plan snf Subjective Constitutional: Reports: weakness Allergies: Coded Allergies: PENICILLINS (Verified Allergy, Unknown, 01/30/16) Uncoded Allergies: PENICLLINS (Allergy, Unknown, 10/19/18) All Systems: reviewed and negative except above Subjective sleepy calm in bed Objective Last 24 Hour Vital Signs Date Time Temp Pulse Resp B/P (MAP) Pulse Ox O2 Delivery O2 Flow Rate FiO2 10/23/18 12:00 97.8 56 21 148/77 (100) 100 10/23/18 12:00 57 10/23/18 09:39 139/74 10/23/18 09:38 67 139/74 10/23/18 09:37 67 139/74 10/23/18 09:00 Room Air 10/23/18 08:00 97.3 53 21 139/74 (95) 95 10/23/18 08:00 52 10/23/18 04:00 97.9 54 18 157/73 (101) 99 10/23/18 04:00 50 10/23/18 00:00 97.9 56 18 139/66 (90) 94 10/23/18 00:00 52 10/22/18 21:00 59 142/66 10/22/18 21:00 Room Air 10/22/18 20:00 97.9 59 18 142/66 (91) 99 10/22/18 20:00 58 10/22/18 19:17 80 18 Room Air 21 10/22/18 16:00 97.3 60 18 132/66 (88) 96 10/22/18 16:00 60 Intake and Output 10/22/18 10/23/18 18:59 06:59 # Voids 3 2 Laboratory Tests 10/23/18 04:50: White Blood Count 4.0L, Red Blood Count 5.02, Hemoglobin 11.9L, Hematocrit 39.1L , Mean Corpuscular Volume 78L, Mean Corpuscular Hemoglobin 23.7L, Mean Corpuscular Hemoglobin Concent 30.4L, Red Cell Distribution Width 13.5, Platelet Count 112L, Mean Platelet Volume 9.7, Neutrophils (%) (Auto) 36.2L, Lymphocytes (%) (Auto) 47.5H, Monocytes (%) (Auto) 11.5H, Eosinophils (%) (Auto ) 3.4H, Basophils (%) (Auto) 1.4, Erythrocyte Sedimentation Rate 14, Sodium Level 143, Potassium Level 4.2, Chloride Level 105, Carbon Dioxide Level 32, Anion Gap 7, Blood Urea Nitrogen 20H, Creatinine 1.2, Estimat Glomerular Filtration Rate , Glucose Level 78, Calcium Level 9.5, Phosphorus Level 3.1, Magnesium Level 1.8, Total Bilirubin 0.3, Aspartate Amino Transf (AST/SGOT) 16, Alanine Aminotransferase (ALT/SGPT) 24, Alkaline Phosphatase 82, Troponin I 0.115H, Total Protein 7.3, Albumin 3.4, Globulin 3.9, Albumin/Globulin Ratio 0.9L Height (Feet): 5 Height (Inches): 8.00 Weight (Pounds): 118 General Appearance: lethargic EENT: normal ENT inspection Neck: normal alignment Cardiovascular: normal peripheral pulses, normal rate, regular rhythm Respiratory/Chest: chest wall non-tender, decreased breath sounds Abdomen: normal bowel sounds, non tender, soft Extremities: normal inspection Edema: no edema noted Arm (L), no edema noted Arm (R), no edema noted Leg (L), no edema noted Leg (R), no edema noted Pedal (L), no edema noted Pedal (R), no edema noted Generalized Neurologic: motor weakness Skin: normal pigmentation, warm/dry Mina Garcia DO Oct 23, 2018 14:50
--- NOTE | 2018-10-23 14:56 | General Progress Note ---
Assessment/Plan Assessment/Plan Assesment and Recs: # Pancytopenia -- multiple etiologies could be related to underlying liver disease, medication-induced, infection versus viral syndrome --> peripheral smear has been ordered and does not show significant abnormalities --> Medications have been reviewed --> Continue to monitor for improvement, trend cbc --> Hep panel and HIV have been negative --> US abd ordered to r/o cirrhosis and hepatosplenomegaly --> consider other causes, infections that could contribute --> reverse isolation if ANC is <2000 --> Give neupogen if ANC <1000 --> Transfuse if hgb <7, with 1 unit prbc --> consider bone marrow biopsy if no other causes are found # Coagulation defect, unspecified aka coagulopathy, multifactorial usually related to poor PO intake versus medications, versus hepatitis v cirrhosis --> administer Vitamin K if patient is bleeding or FFP if the INR is >10 --> hold off on ffp unless active procedure/bleeding, first begin with vit K 10 --> mixing study as needed # Altered mental status with prior CVAs --> consider neuro recs --> on abx # Azotemia is on iv fluids --> appreciate renal recs --> as per stella dykes The timing of this note does not necessarily reflect the time of the patient was seen. Greatly appreciate consultation! Subjective Constitutional: Denies: no symptoms, chills, diaphoresis, fever, malaise, weakness, other HEENT: Denies: no symptoms, eye pain, blurred vision, tearing, double vision, ear pain, ear discharge, nose pain, nose congestion, throat pain, throat swelling, mouth pain, mouth swelling, other Cardiovascular: Denies: no symptoms, chest pain, edema, irregular heart rate, lightheadedness, palpitations, syncope, other Respiratory: Denies: no symptoms, cough, orthopnea, shortness of breath, SOB with excertion, SOB at rest, sputum, stridor, wheezing, other Gastrointestinal/Abdominal: Denies: no symptoms, abdomen distended, abdominal pain, black stools, tarry stools, blood in stool, constipated, diarrhea, difficulty swallowing, nausea, poor appetite, poor fluid intake, rectal bleeding , vomiting, other Genitourinary: Denies: no symptoms, burning, discharge, frequency, flank pain, hematuria, incontinence, pain, urgency, other Neurologic/Psychiatric: Denies: no symptoms, anxiety, depressed, emotional problems, headache, numbness, paresthesia, pre-existing deficit, seizure, tingling, tremors, weakness, other Endocrine: Denies: no symptoms, excessive sweating, flushing, intolerance to cold, intolerance to heat, increased hunger, increased thirst, increased urine, unexplained weight gain, unexplained weight loss, other Hematologic/Lymphatic: Denies: no symptoms, anemia, easy bleeding, easy bruising, other Allergies: Coded Allergies: PENICILLINS (Verified Allergy, Unknown, 01/30/16) Uncoded Allergies: PENICLLINS (Allergy, Unknown, 10/19/18) Subjective 10/22: seen by bedside, no acute distress, plt 116 Objective Last 24 Hour Vital Signs Date Time Temp Pulse Resp B/P (MAP) Pulse Ox O2 Delivery O2 Flow Rate FiO2 10/23/18 12:00 97.8 56 21 148/77 (100) 100 10/23/18 12:00 57 10/23/18 09:39 139/74 10/23/18 09:38 67 139/74 10/23/18 09:37 67 139/74 10/23/18 09:00 Room Air 10/23/18 08:00 97.3 53 21 139/74 (95) 95 10/23/18 08:00 52 10/23/18 04:00 97.9 54 18 157/73 (101) 99 10/23/18 04:00 50 10/23/18 00:00 97.9 56 18 139/66 (90) 94 10/23/18 00:00 52 10/22/18 21:00 59 142/66 10/22/18 21:00 Room Air 10/22/18 20:00 97.9 59 18 142/66 (91) 99 10/22/18 20:00 58 10/22/18 19:17 80 18 Room Air 21 10/22/18 16:00 97.3 60 18 132/66 (88) 96 10/22/18 16:00 60 Intake and Output 10/22/18 10/23/18 18:59 06:59 # Voids 3 2 Laboratory Tests 10/23/18 04:50: White Blood Count 4.0L, Red Blood Count 5.02, Hemoglobin 11.9L, Hematocrit 39.1L , Mean Corpuscular Volume 78L, Mean Corpuscular Hemoglobin 23.7L, Mean Corpuscular Hemoglobin Concent 30.4L, Red Cell Distribution Width 13.5, Platelet Count 112L, Mean Platelet Volume 9.7, Neutrophils (%) (Auto) 36.2L, Lymphocytes (%) (Auto) 47.5H, Monocytes (%) (Auto) 11.5H, Eosinophils (%) (Auto ) 3.4H, Basophils (%) (Auto) 1.4, Erythrocyte Sedimentation Rate 14, Sodium Level 143, Potassium Level 4.2, Chloride Level 105, Carbon Dioxide Level 32, Anion Gap 7, Blood Urea Nitrogen 20H, Creatinine 1.2, Estimat Glomerular Filtration Rate , Glucose Level 78, Calcium Level 9.5, Phosphorus Level 3.1, Magnesium Level 1.8, Total Bilirubin 0.3, Aspartate Amino Transf (AST/SGOT) 16, Alanine Aminotransferase (ALT/SGPT) 24, Alkaline Phosphatase 82, Troponin I 0.115H, Total Protein 7.3, Albumin 3.4, Globulin 3.9, Albumin/Globulin Ratio 0.9L Height (Feet): 5 Height (Inches): 8.00 Weight (Pounds): 118 Objective PE: General Appearance: well appearing, no apparent distress, confused occasionally Head: normocephalic Eyes: bilateral eye normal inspection, bilateral eye PERRL ENT: dry mucus membranes Neck: supple Respiratory: lungs clear, normal breath sounds Cardiovascular: regular rate, rhythm Gastrointestinal: normal inspection, normal bowel sounds, nd Musculoskeletal: back normal, normal range of motion Neurologic: responsive, DTRs symmetric, sensory intact Psychiatric: depressed affect Jatin Márquez MD Oct 23, 2018 14:56
[2018-10-23 16:00] VITALS: BP 161/73
--- NOTE | 2018-10-23 17:45 | Progress Note ---
DATE: 10/23/2018 SUBJECTIVE: The patient was admitted to [facility] for altered level of consciousness. This patient is an 83-year-old male patient who has altered level of consciousness. He has some confusion, some disorganized thought process, declined in cognition below his baseline that why his attending has requested daily psychiatric consultation at this time. He has increased depression, anxiety, and mood lability as well. MENTAL STATUS EXAMINATION: This is an 83-year-old male patient. His appearance is disheveled. Attitude, irritable and agitated. Affect, guarded and restricted. Intellect poor. Mood depressed and anxious. Motor activity, psychomotor agitation. Attention span is poor. Orientation x2. Speech is pressured. Thought process, disorganized and illogical. Insight and judgment is poor. DIAGNOSIS: Major depressive disorder, severe, recurrent with psychotic features, rule out dementia with psychosis. PLAN: Treat with Namenda 5 mg twice a day, Seroquel 50 mg every noon and 100 mg twice a day, Celexa 20 mg a day, Ativan 0.5 mg IV q.4 hours p.r.n. anxiety and agitation. Provided him with 20 minutes of reality-based supportive psychotherapy including cognitive behavioral therapy to help him identify automatic negative thoughts and help him convert those negative thoughts to more positive thoughts to reduce depression, anxiety, and mood lability and also help him have more adaptive behavioral pattern. Chart reviewed and discussed with staff. Seen and assessed in his room. Ashley Flood M.D. DR: Makayla JOB#: [id number] CC:
--- NOTE | 2018-10-23 18:01 | NUR ---
P.T. NOTES S/P: APPROACHED PATIENT IN THE PM. HOWEVER PATIENT HAVING NSG. PROCEDURE. WILL F/U. NEXT TX. TIME. ADDENDUM: PATIENT FUNCTIONALLY, UNSTEADY, PATIENT REQUIRES, PLENTY OF CUEING FOR SAFETY, PROPER GAIT AND FUNCTIONAL MECHANICS. PATIENT NEEDS TO IMPROVE BALANCE/AND STABILITY/STRENGTH, AND PATIENT'S IMPULSIVE @ TIMES. SAFETY AN ISSUE. PATIENT A FALL RISK. RECOMMENDATION: SNF. WIN. Addendum: 10/23/18 at 1812 by GHASSAN MONROY VOLUNTEER SPECIALIST P.T. NOTES DOCUMENTED ON WRONG PATIENT. WIN.
--- NOTE | 2018-10-23 18:30 | NUR ---
NURSE NOTES: Lucía PLASCENCIA CAME TO SEE THE PT AND MADE AWARE AND NOTIFIED REGARDING B/P 161/73,HR 54. A WAITING FOR Lucía TO ORDER A PRN MED,S FOR HIGH B/P.WILL CONT TO MONITOR.
--- NOTE | 2018-10-23 18:46 | NUR ---
NURSE NOTES: PT REMAINS FREE OF INJURIES DURING THIS SHIFT. WILL CONT TO MONITOR.
--- NOTE | 2018-10-23 19:08 | NUR ---
HAND-OFF: Report given to .RAMIN GONZALEZ RN.
--- NOTE | 2018-10-23 19:38 | NUR ---
NURSE NOTES: Report received from CHRISTOPHE Olvera. Pt is lying comfortably in semi-fowlers with no signs of distress. Pt is A+Ox1 and denies pain/SOB. Respirations are even and unlabored on room air. IV site is patent, intact, and running fluids at prescribed rate. Bed is at lowest position, brakes engaged, siderails x2, bed alarm on, and call light within reach. Pt is in stable condition at this time; will continue to monitor.
[2018-10-23] MEDS ORDERED: HydrALAZINE 50mg tab ORAL PRN (19:45)
[2018-10-23 20:00] VITALS: BP 148/65
[2018-10-23] MEDS: Atorvastatin 80mg tab ORAL SCH (20:26)
[2018-10-24] VITALS: BP 156/71
[2018-10-24 04:00] VITALS: BP 155/80
[2018-10-24] MEDS: D5 1/2NS 1,000 ML IV SCH (06:08)
[2018-10-24 06:40] LABS: BASOPHILS % (AUTO) 0.6 % (0.0-2.0); EOSINOPHILS % (AUTO) 1.9 % (0.0-3.0); HEMATOCRIT 42.8 % (42.0-52.0); HEMOGLOBIN 13.1 G/DL (14.2-18.0); LYMPHOCYTES % (AUTO) 26.8 % (20.0-45.0); MEAN CORPUSCULAR VOLUME 78 FL (80-99); MONOCYTES % (AUTO) 8.9 % (1.0-10.0); NEUTROPHILS % (AUTO) 61.9 % (45.0-75.0); PLATELET COUNT 137 K/UL (150-450); RED BLOOD COUNT 5.51 M/UL (4.70-6.10); RED CELL DISTRIBUTION WIDTH 14.1 % (11.6-14.8); WHITE BLOOD COUNT 5.3 K/UL (4.8-10.8)
[2018-10-24 06:52] LABS: ANION GAP 7 mmol/L (5-15); BLOOD UREA NITROGEN 18 mg/dL (7-18); CALCIUM 9.9 MG/DL (8.5-10.1); CARBON DIOXIDE 31 MMOL/L (21-32); CHLORIDE 105 MMOL/L (98-107); CREATININE 1.2 MG/DL (0.55-1.30); SODIUM 143 MMOL/L (136-145)
--- NOTE | 2018-10-24 07:11 | NUR ---
HAND-OFF: Report given to CHRISTOPHE Still. Pt is in stable condition; plan of care endorsed.
--- NOTE | 2018-10-24 07:39 | NUR ---
NURSE NOTES: Received report from Kadeem SAEED. Pt sitting on comode. Pt on gambling monitor under no distress. Bed locked and in lowest position. Will continue care plans and monitor pt.
[2018-10-24 08:00] VITALS: BP 161/64
--- NOTE | 2018-10-24 08:15 | Progress Note ---
DATE: 10/24/2018 SUBJECTIVE: This is an 83-year-old patient with altered mental status. This patient is very confused, disorganized, mood labile. No logical plan for his own self-care. DIAGNOSIS: Major depressive disorder, mild, recurrent with psychotic features, rule out dementia with psychosis. PLAN: Treat him with Celexa 20 mg daily, Namenda 5 mg twice a day as well as Ativan 0.5 mg every four hours p.r.n. anxiety and agitation, Seroquel 100 mg every morning and mg every noon. Provide him with 20 minutes of cognitive behavioral therapy to help him identify automatic negative thoughts and help him convert those negative thoughts to more positive thoughts to reduce depression, anxiety, and suicidality. Chart reviewed and discussed with staff. Seen and assessed in his room. Ashley Flood M.D. DR: TARIQ JOB#: [id number] CC:
[2018-10-24] MEDS: Heparin 5000 units/ml inj SUBQ SCH (09:00)
[2018-10-24] MEDS: Citalopram Hydrobromide 10mg Tab ORAL SCH (09:48)
[2018-10-24] MEDS: Memantine 5 MG TAB ORAL SCH ×2 (09:49→18:02)
[2018-10-24] MEDS: Aspirin Baby 81mg ORAL SCH (09:50)
[2018-10-24] MEDS: Lisinopril 20mg tab ORAL SCH (09:51)
[2018-10-24] MEDS: Metoprolol 25mg tab ORAL SCH (09:51)
[2018-10-24] MEDS ORDERED: NAMENDA10 MG ORAL (11:19)
--- NOTE | 2018-10-24 11:20 | Pulmonology Progress Note ---
Assessment/Plan Problems: (1) NSTEMI (non-ST elevated myocardial infarction) (2) Protein-calorie malnutrition, severe (3) ATN (acute tubular necrosis) (4) Advanced dementia Assessment/Plan serial ekg, troponin, ( higher now) echocardiogram reviewed EF 55%, mild diastolic dysfunction. grade 1 On Seroquel bid and lunch time renal f/u pt/ot evaluation dvt prophylaxis f/u cardiology recommendation, who thinks pt need cardiac cath. depending on goal of care Subjective ROS Limited/Unobtainable: No Constitutional: Reports: no symptoms HEENT: Repors: no symptoms Allergies: Coded Allergies: PENICILLINS (Verified Allergy, Unknown, 01/30/16) Uncoded Allergies: PENICLLINS (Allergy, Unknown, 10/19/18) Objective Last 24 Hour Vital Signs Date Time Temp Pulse Resp B/P (MAP) Pulse Ox O2 Delivery O2 Flow Rate FiO2 10/24/18 09:51 65 161/64 10/24/18 09:51 161/64 10/24/18 09:49 65 161/64 10/24/18 09:00 Room Air 10/24/18 08:30 60 18 Room Air 21 10/24/18 08:00 96.8 67 18 161/64 (96) 98 10/24/18 04:00 97.9 59 18 155/80 (105) 99 10/24/18 04:00 58 10/24/18 00:00 97.5 54 18 156/71 (99) 100 10/24/18 00:00 53 10/23/18 22:13 64 20 Room Air 21 10/23/18 21:00 Room Air 10/23/18 20:27 61 148/65 10/23/18 20:00 97.2 61 18 148/65 (92) 99 10/23/18 20:00 65 10/23/18 16:00 96.6 54 21 161/73 (102) 100 10/23/18 16:00 51 10/23/18 12:00 97.8 56 21 148/77 (100) 100 10/23/18 12:00 57 Intake and Output 10/23/18 10/24/18 19:00 07:00 Intake Total 500 ml Balance 500 ml IV Total 500 ml # Voids 3 2 Objective General Appearance: cachetic HEENT: normocephalic, atraumatic Respiratory/Chest: chest wall non-tender, lungs clear Cardiovascular: normal peripheral pulses, regular rhythm Abdomen: normal bowel sounds, soft, non tender Genitourinary: normal external genitalia Extremities: no clubbing Laboratory Tests 10/24/18 05:00: White Blood Count 5.3, Red Blood Count 5.51, Hemoglobin 13.1L, Hematocrit 42.8, Mean Corpuscular Volume 78L, Mean Corpuscular Hemoglobin 23.8L, Mean Corpuscular Hemoglobin Concent 30.6L, Red Cell Distribution Width 14.1, Platelet Count 137L, Mean Platelet Volume 10.3H, Neutrophils (%) (Auto) 61.9, Lymphocytes (%) (Auto) 26.8, Monocytes (%) (Auto) 8.9, Eosinophils (%) (Auto) 1.9, Basophils (%) (Auto) 0.6, Sodium Level 143, Potassium Level 4.0, Chloride Level 105, Carbon Dioxide Level 31, Anion Gap 7, Blood Urea Nitrogen 18, Creatinine 1.2, Estimat Glomerular Filtration Rate , Glucose Level 88, Calcium Level 9.9 Current Medications Medications (Trade) Dose Ordered Sig/Lea Route PRN Reason Start Time Stop Time Status Last Admin Dose Admin Acetaminophen (Tylenol) 650 mg Q4H PRN ORAL fever 10/19/18 18:00 11/18/18 17:59 Al Hydroxide/Mg Hydroxide (Mylanta II) 30 ml Q6H PRN ORAL dyspepsia 10/19/18 18:00 11/18/18 17:59 Albuterol/ Ipratropium (Albuterol/ Ipratropium) 3 ml Q4H PRN HHN Shortness of Breath 10/19/18 18:00 10/24/18 17:59 Amlodipine Besylate (Norvasc) 5 mg DAILY ORAL 10/20/18 09:00 11/19/18 08:59 10/24/18 09:49 Aspirin (ASA) 81 mg DAILY ORAL 10/20/18 09:00 11/19/18 08:59 10/24/18 09:50 Atorvastatin Calcium (Lipitor) 80 mg BEDTIME ORAL 10/21/18 21:00 11/20/18 20:59 10/23/18 20:26 Citalopram Hydrobromide (celeXA) 20 mg DAILY ORAL 10/20/18 09:00 11/19/18 08:59 10/24/18 09:48 Dextrose (Dextrose 50%) 25 ml Q30M PRN IV Hypoglycemia 10/19/18 18:00 11/18/18 17:59 Dextrose (Dextrose 50%) 50 ml Q30M PRN IV Hypoglycemia 10/19/18 18:00 11/18/18 17:59 Dextrose/Sodium Chloride 1,000 ml @ 50 mls/hr Q20H IV 10/19/18 17:54 11/18/18 17:53 10/24/18 06:08 Heparin Sodium (Porcine) (Heparin 5000 units/ml) 5,000 units EVERY 12 HOURS SUBQ 10/19/18 21:00 11/18/18 20:59 10/23/18 09:48 Hydralazine HCl (Apresoline) 50 mg Q8H PRN ORAL For High Blood Pressure 10/23/18 19:45 11/22/18 19:44 Lisinopril (Prinivil) 20 mg DAILY ORAL 10/20/18 09:00 11/19/18 08:59 10/24/18 09:51 Lorazepam (Ativan 2mg/ml 1ml) 0.5 mg Q4H PRN IV For Anxiety 10/19/18 18:00 10/26/18 17:59 10/22/18 08:24 Memantine (Namenda) 5 mg BID ORAL 10/21/18 09:00 11/20/18 08:59 10/24/18 09:49 Metoprolol Tartrate (Lopressor) 25 mg Q12HR ORAL 10/21/18 21:00 11/20/18 20:59 10/24/18 09:51 Morphine Sulfate (Morphine Sulfate) 1 mg Q4H PRN IVP For Pain 7-10 10/19/18 18:00 10/26/18 17:59 Nitroglycerin (Ntg) 0.4 mg Q5M X 3 DOSES PRN SL Prn Chest Pain 10/19/18 18:00 11/18/18 17:59 Ondansetron HCl (Zofran) 4 mg Q6H PRN IVP Nausea & Vomiting 10/19/18 18:00 11/18/18 17:59 Polyethylene Glycol (Miralax) 17 gm HSPRN PRN ORAL Constipation 10/19/18 18:00 11/18/18 17:59 Promethazine HCl/ Codeine (Phenergan with Codeine) 5 ml Q4H PRN ORAL For Cough 10/19/18 18:00 11/18/18 17:59 Quetiapine Fumarate (SEROquel) 50 mg QLUNCH ORAL 10/20/18 11:30 11/19/18 11:29 10/23/18 11:52 Quetiapine Fumarate (SEROquel) 100 mg BID ORAL 10/19/18 20:02 11/18/18 20:01 10/24/18 09:50 Temazepam (Restoril) 15 mg HSPRN PRN ORAL Insomnia 10/19/18 18:00 10/26/18 17:59 Linda Prater MD Oct 24, 2018 11:20
[2018-10-24 11:42] VITALS: BP 144/62
--- NOTE | 2018-10-24 13:39 | General Progress Note ---
Assessment/Plan Problem List: (1) NSTEMI (non-ST elevated myocardial infarction) ICD Codes: I21.4 - Non-ST elevation (NSTEMI) myocardial infarction SNOMED: 33227221, 574868620 (2) Altered mental status ICD Codes: R41.82 - Altered mental status, unspecified SNOMED: 906425916 Qualifiers: Qualified Codes: R40.1 - Stupor (3) Dehydration ICD Codes: E86.0 - Dehydration SNOMED: 57364661, 520013006, 967365067 (4) Renal insufficiency ICD Codes: N28.9 - Disorder of kidney and ureter, unspecified SNOMED: 584285801, 163839777 (5) Elevated troponin ICD Codes: R74.8 - Abnormal levels of other serum enzymes SNOMED: 078976175, 613437390, 862828343 (6) Advanced dementia ICD Codes: F03.90 - Unspecified dementia without behavioral disturbance SNOMED: 82864426 (7) Protein-calorie malnutrition, severe ICD Codes: E43 - Unspecified severe protein-calorie malnutrition SNOMED: 189377720, 931539777, 782013729 Status: stable, progressing Assessment/Plan pt diet pain control cardio f/u dc to snf Subjective Constitutional: Reports: weakness Allergies: Coded Allergies: PENICILLINS (Verified Allergy, Unknown, 01/30/16) Uncoded Allergies: PENICLLINS (Allergy, Unknown, 10/19/18) All Systems: reviewed and negative except above Subjective sleepy calm in bed Objective Last 24 Hour Vital Signs Date Time Temp Pulse Resp B/P (MAP) Pulse Ox O2 Delivery O2 Flow Rate FiO2 10/24/18 11:42 96.4 56 20 144/62 (89) 96 10/24/18 09:51 65 161/64 10/24/18 09:51 161/64 10/24/18 09:49 65 161/64 10/24/18 09:00 Room Air 10/24/18 08:30 60 18 Room Air 21 10/24/18 08:00 67 10/24/18 08:00 96.8 67 18 161/64 (96) 98 10/24/18 04:00 97.9 59 18 155/80 (105) 99 10/24/18 04:00 58 10/24/18 00:00 97.5 54 18 156/71 (99) 100 10/24/18 00:00 53 10/23/18 22:13 64 20 Room Air 21 10/23/18 21:00 Room Air 10/23/18 20:27 61 148/65 10/23/18 20:00 97.2 61 18 148/65 (92) 99 10/23/18 20:00 65 10/23/18 16:00 96.6 54 21 161/73 (102) 100 10/23/18 16:00 51 Intake and Output 10/23/18 10/24/18 19:00 07:00 Intake Total 500 ml Balance 500 ml IV Total 500 ml # Voids 3 2 Laboratory Tests 10/24/18 05:00: White Blood Count 5.3, Red Blood Count 5.51, Hemoglobin 13.1L, Hematocrit 42.8, Mean Corpuscular Volume 78L, Mean Corpuscular Hemoglobin 23.8L, Mean Corpuscular Hemoglobin Concent 30.6L, Red Cell Distribution Width 14.1, Platelet Count 137L, Mean Platelet Volume 10.3H, Neutrophils (%) (Auto) 61.9, Lymphocytes (%) (Auto) 26.8, Monocytes (%) (Auto) 8.9, Eosinophils (%) (Auto) 1.9, Basophils (%) (Auto) 0.6, Sodium Level 143, Potassium Level 4.0, Chloride Level 105, Carbon Dioxide Level 31, Anion Gap 7, Blood Urea Nitrogen 18, Creatinine 1.2, Estimat Glomerular Filtration Rate , Glucose Level 88, Calcium Level 9.9 Height (Feet): 5 Height (Inches): 8.00 Weight (Pounds): 118 General Appearance: lethargic EENT: normal ENT inspection Neck: normal alignment Cardiovascular: normal peripheral pulses, normal rate, regular rhythm Respiratory/Chest: chest wall non-tender, lungs clear, no respiratory distress Abdomen: normal bowel sounds, non tender, soft Extremities: normal inspection Edema: no edema noted Arm (L), no edema noted Arm (R), no edema noted Leg (L), no edema noted Leg (R), no edema noted Pedal (L), no edema noted Pedal (R), no edema noted Generalized Neurologic: motor weakness Skin: normal pigmentation, warm/dry Mina Garcia DO Oct 24, 2018 13:39
--- NOTE | 2018-10-24 14:40 | NUR ---
DISCHARGE PLAN PATIENT WILL [place]GE [place] [facility] [address] SKILLED T: [phone] FOR NURSE TO NURSE REPORT [facility] HAS BEEN ARRANGED FOR [address] [employer] FACILIT[employer] SPOKE WITH PATIENT'S DAUGHTER,DAMION, WHO IS IN AGREEMENT WITH DISCHARGE PLAN
[2018-10-24 16:00] VITALS: BP 164/74
--- NOTE | 2018-10-24 16:21 | General Progress Note ---
Assessment/Plan Assessment/Plan Assessment and Recs: # Pancytopenia -- multiple etiologies could be related to underlying liver disease, medication-induced, infection versus viral syndrome --> peripheral smear has been ordered and does not show significant abnormalities --> Medications have been reviewed --> Continue to monitor for improvement, trend cbc --> Hep panel and HIV have been negative --> US abd ordered to r/o cirrhosis and hepatosplenomegaly shows no significant scirrhosis --> consider other causes, infections that could contribute --> reverse isolation if ANC is <2000 --> Give neupogen if ANC <1000 --> Transfuse if hgb <7, with 1 unit prbc --> plt trend 116k--> 112k-->137k (trend as outpatient) --> consider bone marrow biopsy if no other causes are found as outpatient ( needs f/u with heme clinic) # Coagulation defect, unspecified aka coagulopathy, multifactorial usually related to poor PO intake versus medications, versus hepatitis v cirrhosis --> administer Vitamin K if patient is bleeding or FFP if the INR is >10 --> hold off on ffp unless active procedure/bleeding, first begin with vit K 10 --> mixing study as needed # Altered mental status with prior CVAs --> consider neuro recs --> on abx # Azotemia is on iv fluids --> appreciate renal recs --> as per stella dykes The timing of this note does not necessarily reflect the time of the patient was seen. Greatly appreciate consultation! Subjective Constitutional: Denies: no symptoms, chills, diaphoresis, fever, malaise, weakness, other Cardiovascular: Denies: no symptoms, chest pain, edema, irregular heart rate, lightheadedness, palpitations, syncope, other Neurologic/Psychiatric: Denies: no symptoms, anxiety, depressed, emotional problems, headache, numbness, paresthesia, pre-existing deficit, seizure, tingling, tremors, weakness, other Endocrine: Denies: no symptoms, excessive sweating, flushing, intolerance to cold, intolerance to heat, increased hunger, increased thirst, increased urine, unexplained weight gain, unexplained weight loss, other Hematologic/Lymphatic: Denies: no symptoms, anemia, easy bleeding, easy bruising, other Allergies: Coded Allergies: PENICILLINS (Verified Allergy, Unknown, 01/30/16) Uncoded Allergies: PENICLLINS (Allergy, Unknown, 10/19/18) Subjective 10/22: seen by bedside, no acute distress, plt 116 10/23: no events, consider dc tomorrow 10/24: no events, plt slightly lower, to dc today Objective Last 24 Hour Vital Signs Date Time Temp Pulse Resp B/P (MAP) Pulse Ox O2 Delivery O2 Flow Rate FiO2 10/24/18 16:00 98.8 64 20 164/74 (104) 95 10/24/18 12:10 66 10/24/18 11:42 96.4 56 20 144/62 (89) 96 10/24/18 09:51 65 161/64 10/24/18 09:51 161/64 10/24/18 09:49 65 161/64 10/24/18 09:00 Room Air 10/24/18 08:30 60 18 Room Air 21 10/24/18 08:00 67 10/24/18 08:00 96.8 67 18 161/64 (96) 98 10/24/18 04:00 97.9 59 18 155/80 (105) 99 10/24/18 04:00 58 10/24/18 00:00 97.5 54 18 156/71 (99) 100 10/24/18 00:00 53 10/23/18 22:13 64 20 Room Air 21 10/23/18 21:00 Room Air 10/23/18 20:27 61 148/65 10/23/18 20:00 97.2 61 18 148/65 (92) 99 10/23/18 20:00 65 Intake and Output 10/23/18 10/24/18 18:59 06:59 Intake Total 550 ml Balance 550 ml IV Total 550 ml # Voids 3 2 Laboratory Tests 10/24/18 05:00: White Blood Count 5.3, Red Blood Count 5.51, Hemoglobin 13.1L, Hematocrit 42.8, Mean Corpuscular Volume 78L, Mean Corpuscular Hemoglobin 23.8L, Mean Corpuscular Hemoglobin Concent 30.6L, Red Cell Distribution Width 14.1, Platelet Count 137L, Mean Platelet Volume 10.3H, Neutrophils (%) (Auto) 61.9, Lymphocytes (%) (Auto) 26.8, Monocytes (%) (Auto) 8.9, Eosinophils (%) (Auto) 1.9, Basophils (%) (Auto) 0.6, Sodium Level 143, Potassium Level 4.0, Chloride Level 105, Carbon Dioxide Level 31, Anion Gap 7, Blood Urea Nitrogen 18, Creatinine 1.2, Estimat Glomerular Filtration Rate , Glucose Level 88, Calcium Level 9.9 Height (Feet): 5 Height (Inches): 8.00 Weight (Pounds): 118 Objective PE: General Appearance: well appearing, no apparent distress, confused occasionally Head: normocephalic Eyes: bilateral eye normal inspection, bilateral eye PERRL ENT: dry mucus membranes Neck: supple Respiratory: lungs clear, normal breath sounds Cardiovascular: regular rate, rhythm Gastrointestinal: normal inspection, normal bowel sounds, nd Musculoskeletal: back normal, normal range of motion Neurologic: responsive, DTRs symmetric Psychiatric: depressed affect Jatin Márquez MD Oct 24, 2018 16:21
--- NOTE | 2018-10-24 16:32 | NUR ---
NURSE NOTES: Called [facility] to give report. Report given to Anisa, the nurse that will be taking the pt.
--- NOTE | 2018-10-24 19:00 | NUR ---
NURSE NOTES: Pt was discharged per MD orders. Pt had no belongings. Family was notified of transfer. Heart monitor was removed and returned to technical solutions engineer. Iv was removed. No swelling or redness noted. Pt stable at time of discharge.
--- NOTE | 2018-10-24 20:46 | Cardiology Progress Note ---
Assessment/Plan Assessment/Plan 1. Slight elevation of troponin I level, could be secondary to type 2 non-ST elevation myocardial infarction, could be secondary to the ischemia or other etiologies such as hypovolemia and dehydration. A 12-lead electrocardiogram does not show any evidence of ischemia. LVEF is approximately 45%, refused cardiac cath in the past. 2. History of hypertension. 3. History of paroxysmal atrial fibrillation, in SR currently, not on DOAC due to prior GI bleed 4. History of GI bleed. 5. History of dementia. Subjective Subjective Sinus bradycardia at rate of 59. Objective Last 24 Hour Vital Signs Date Time Temp Pulse Resp B/P (MAP) Pulse Ox O2 Delivery O2 Flow Rate FiO2 10/24/18 16:00 63 10/24/18 16:00 98.8 64 20 164/74 (104) 95 10/24/18 12:10 66 10/24/18 11:42 96.4 56 20 144/62 (89) 96 10/24/18 09:51 65 161/64 10/24/18 09:51 161/64 10/24/18 09:49 65 161/64 10/24/18 09:00 Room Air 10/24/18 08:30 60 18 Room Air 21 10/24/18 08:00 67 10/24/18 08:00 96.8 67 18 161/64 (96) 98 10/24/18 04:00 97.9 59 18 155/80 (105) 99 10/24/18 04:00 58 10/24/18 00:00 97.5 54 18 156/71 (99) 100 10/24/18 00:00 53 10/23/18 22:13 64 20 Room Air 21 10/23/18 21:00 Room Air Intake and Output 10/23/18 10/24/18 18:59 06:59 Intake Total 550 ml Balance 550 ml IV Total 550 ml # Voids 3 2 Laboratory Tests Test 10/24/18 05:00 White Blood Count 5.3 K/UL (4.8-10.8) Red Blood Count 5.51 M/UL (4.70-6.10) Hemoglobin 13.1 G/DL (14.2-18.0) L Hematocrit 42.8 % (42.0-52.0) Mean Corpuscular Volume 78 FL (80-99) L Mean Corpuscular Hemoglobin 23.8 PG (27.0-31.0) L Mean Corpuscular Hemoglobin Concent 30.6 G/DL (32.0-36.0) L Red Cell Distribution Width 14.1 % (11.6-14.8) Platelet Count 137 K/UL (150-450) L Mean Platelet Volume 10.3 FL (6.5-10.1) H Neutrophils (%) (Auto) 61.9 % (45.0-75.0) Lymphocytes (%) (Auto) 26.8 % (20.0-45.0) Monocytes (%) (Auto) 8.9 % (1.0-10.0) Eosinophils (%) (Auto) 1.9 % (0.0-3.0) Basophils (%) (Auto) 0.6 % (0.0-2.0) Sodium Level 143 MMOL/L (136-145) Potassium Level 4.0 MMOL/L (3.5-5.1) Chloride Level 105 MMOL/L (98-107) Carbon Dioxide Level 31 MMOL/L (21-32) Anion Gap 7 mmol/L (5-15) Blood Urea Nitrogen 18 mg/dL (7-18) Creatinine 1.2 MG/DL (0.55-1.30) Estimat Glomerular Filtration Rate mL/min (>60) Glucose Level 88 MG/DL (74-106) Calcium Level 9.9 MG/DL (8.5-10.1) Objective HEENT: Atraumatic and normocephalic. Anicteric. Pupils are equal, round, and reactive to light and accommodation. Extraocular muscles intact. NECK: JVP less than 5 cm. No carotid bruit. Carotid upstroke is 2+ bilaterally. CARDIOVASCULAR: Normal S1, S2. There is a 3/6 holosystolic murmur at left sternal border, radiation to the right upper sternal border. LUNGS: Clear to auscultation bilaterally. ABDOMEN: Soft, nontender, and nondistended. No hepatosplenomegaly. Positive bowel sounds. EXTREMITIES: No evidence of edema, clubbing, or cyanosis. Mitch Meek MD Oct 24, 2018 20:46
--- NOTE | 2018-10-25 00:22 | Cardiology Report ---
APPROVED REPORT EKG Measurement Heart [id number] Normal sinus rhythm Normal ECG
--- NOTE | 2018-10-26 05:30 | Consultation ---
DATE OF CONSULTATION: 10/24/2018 PSYCHOTHERAPY CONSULTATION PROGRESS NOTE CONSULTING PHYSICIAN: Leonid Gallagher M.D. TREATING ATTENDING PHYSICIAN: Mina Garcia D.O. HISTORY OF PRESENT ILLNESS: This is an 83-year-old male patient, who has been brought into the hospital for altered level of consciousness and dehydration. Apparently, the patient lives at home with his daughter. He is very weak, lethargic, confused, and for these reasons, he is also referred for psychotherapeutic services. When this clinician assessed this patient, he has been significantly confused and disorganized. He does not know why he was brought to the hospital. He feels weak and tired. Having difficulty with cognition. . At this time, he has no logical plan for his own self-care requiring hospitalization for stabilization of his symptoms. There is no indications of auditory or visual hallucinations. The patient has no suicidal or homicidal thoughts of ideation. PAST MEDICAL HISTORY: Includes a history of CVA and possible dementia. ALLERGIES: The patient is allergic to penicillin. SUBSTANCE ABUSE HISTORY: There is occasional alcohol use. No history of illicit substance use. Psychiatric, confused. Depression as well. SOCIAL HISTORY: The patient is an 83-year-old male. The patient lives with his daughter and financially sustained at this time. MENTAL STATUS EXAMINATION: The patient is alert and oriented to person and place. His mood is dysphoric. Affect is blunted. Thought process, disorganized. Thought content, confused. He has poor attention and concentration. Poor insight, judgment, and impulse control. THE PATIENT IS PROVIDED WITH: 1. Reality orientation, which focuses on the patient is very confused and disorganized. Oriented to person, place, time, and situation. 2. Provided the patient with supportive psychotherapy with . 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 At this time thoughts positive coping skills. Psychotherapy provided for this patient, 45 minutes. Leonid Gallagher PsyD. DR: GEETHA JOB#: [id number] CC:
--- NOTE | 2018-10-27 13:07 | Discharge Summary ---
Discharge Summary Discharge Summary _ DATE OF ADMISSION: 10/19/2018 DATE OF DISCHARGE: 10/24/2018 DISCHARGED BY: Dr Garcia REASON FOR ADMISSION: 83 years old male with past medical history of hypertension, CVA, dementia, presented with altered mental status. No history of trauma. Patient reported being thirsty. Blood sugar in the field was 115. Upon evaluation in emergency department vital signs were stable. Laboratory workup revealed leukopenia WBC 3.6 hemoglobin 11.6, hematocrit 37.9. Platelet count 124. Troponin elevated -0.091. EKG reveals sinus rhythm no acute ischemic changes. BUN 30, creatinine 1.7. Glucose 116. Stable electrolytes and LFT. Lactic acid 1.6. Urine toxicology screen was negative. Serum alcohol and serum Tylenol were negative. Urinalysis revealed no evidence of UTI. CT of the head revealed multiple old infarcts, including old right occipital infarct, bilateral old lacunar infarcts. Chronic and age-related changes, but was negative for acute intracranial bleeding or mass-effect. Chest x-ray demonstrated no acute cardiopulmonary pathology. Patient was admitted for further management. CONSULTANTS: binder cutter hand Dr. Damian pulmonary Dr. Prater clinical application specialist Dr. Lewis project architect/oncologist Dr. Márquez psychiatrist Dr. Flood [facility]: Patient admitted to telemetry floor. Cardiology consult was requested. Serial troponin revealed mild elevation with the trend up; last troponin - 0.115. EKG revealed sinus rhythm, no acute ischemic changes. Echocardiogram revealed preserved ejection fraction of 55% with mild left ventricular hypertrophy. No evidence of pericardial effusion. No evidence of wall motion abnormality. Right ventricular systolic pressure of 30. Lipid panel was stable. Antiplatelet therapy with aspirin and statin were continued. Patient with evidence of extensive cerebrovascular disease on the CT. Blood pressure was managed with multiply antihypertensive regimen including calcium channel sandra,, beta-sandra and JOSHUA inhibitor. Later hydralazine was added to keep blood pressure under control. Per binder cutter hand, slight elevation of troponin could be secondary to type II NSTEMI or secondary to ischemia along with other etiologies, such as hypovolemia and dehydration. Family refused cardiac catheterization in the past. Property Investor recommended to continue the conservative management with antiplatelet therapy and beta-sandra. Nitroglycerin was on board as needed. Patient with history of paroxysmal atrial fibrillation, however at this time remained in sinus rhythm. Patient was not on anticoagulation given history of prior GI bleeding. Repeated CT scan of the head revealed no changes from 10/19. It still showed s a multiply old infarcts as described before , involutional changes and evidence of chronic small vessel disease, involving white matter tracts. Carotid duplex revealed mild stenosis in the common carotid artery, moderate stenosis in internal and external carotid artery bilaterally. Vertebral and subclavian arteries were within normal limits. Patient was continued on on statin and antiplatelet therapy. Supplemental oxygen provided as needed to keep pulse oximetry above 92%. Pulmonary toilet provided as needed. DVT prophylaxis provided. Patient started to work with physical therapist. Fall precaution maintained. Due to hip pain , patient undergone pelvic x-ray which revealed no acute injury. Pain management was addressed. Computer Systems Software Engineer closely followed. Per clinical application specialist, patient had acute renal failure. Renal parameters and electrolytes closely monitored. Electrolytes corrected as needed. Nephrotoxins were avoided. Computer Systems Software Engineer specifically recommended to avoid nonsteroidal anti-inflammatory medications. Prior to discharge, BUN from 30 down to 18 and creatinine from 1.7 down down to 1.2. Acute renal failure resolved , probably was due to dehydration. Nutritional assessment revealed high nutritional risk. Nutritional recommendations regarding protein supplements implemented in plan of care. Patient had a bedside swallow evaluation , e which revealed evidence of dysphagia. Diet texture provided as per speech therapist recommendations with strict aspiration/reflux precautions. Video swallow study to rule out silent aspiration was recommended , which could be done as inpatient or outpatient. Pain management was addressed. Bowel regimen instituted. Abdominal ultrasound revealed bilateral hydronephrosis, probable nonobstructive stone in the left kidney. Filling defect at the base of the urinary bladder, probably prostate origin. Moderately distended urinary bladder , the urinary bladder with 200 cc postvoid residual. No evidence of cirrhosis of liver Tick Sewer followed. Patient with evidence of pancytopenia. Hepatitis panel and HIV negative. Abdominal ultrasound revealed no cirrhosis. Hemoglobin and hematocrit were closely monitored with goal to keep hemoglobin above 7. Patient received 1 unit of packed red blood cells while in the hospital. Prior to discharge hemoglobin 13.1 hematocrit 42.8. Platelets were closely monitored, prior to discharge 137, continue to trend as outpatient. Per project architect, consider bone marrow biopsy, if no other causes to be found in outpatient setting. Leukopenia resolved. Immunoglobulin assay stable. Psychiatrist seen and evaluated patient. Psychiatric medication regimen optimized as per psychiatrist recommendation. Patient was provided with cognitive behavioral therapy. Patient clinically stabilized and was ready for discharge to custodial facility for continuation of care FINAL DIAGNOSES: Elevated troponin, possibly secondary to type II NSTEMI. 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 DISCHARGE MEDICATIONS: See Medication Reconciliation list. DISCHARGE INSTRUCTIONS: Patient was discharged to the custodial facility. Follow up with medical doctor at the facility. I have been assigned to dictate discharge summary for this account. I was not involved in the patient's management. Dianelys Lucero NP Oct 27, 2018 13:07
--- NOTE | 2018-10-28 19:16 | Diagnostic Imaging Report ---
APPROVED REPORT CPT Code: 89368 Present Symptoms Comments: Weakness BILATERAL: Imaging reveals a patent deep venous system bilaterally. There is no evidence of thrombus within the common femoral, superficial femoral, popliteal or tibial segments. The greater saphenous veins are within normal limits. Doppler indicates normal spontaneous flow within these segments.
--- NOTE | 2018-10-28 19:16 | Diagnostic Imaging Report ---
APPROVED REPORT CPT Code: 11919 Vascular Symptoms CVA/TIA: Doppler Spectral Velocity Analysis RightLeft arteries. The Doppler spectral flow analysis indicates the degree of stenosis is mild (30%) in the common carotid artery, moderate (50-60%) in the internal carotid artery, and moderate (50% - 60%) in the external carotid artery. VERTEBRAL/SUBCLAVIAN- The vertebral and subclavian arteries are within normal limits. arteries. The Doppler spectral flow analysis indicates the degree of stenosis is mild (30%) in the common carotid artery, moderate (50-60%) in the internal carotid artery, and moderate (50% - 60%) in the external carotid artery. VERTEBRAL/SUBCLAVIAN- The vertebral and subclavian arteries are within normal limits.
== END 2018-10-24 19:00 | DRG 280 ==
LOC: EDBD 14:59 → EMR 15:28 → EDBEDREQ 16:44 → 2E 17:19
DX: I21.A1 Myocardial infarction type 2 (principal); N17.0 Acute kidney failure with tubular necrosis; E43 Unspecified severe protein-calorie malnutrition; F33.0 Major depressive disorder, recurrent, mild; D61.818 Other pancytopenia; D68.9 Coagulation defect, unspecified; I10 Essential (primary) hypertension; I48.0 Paroxysmal atrial fibrillation; F01.50 Vascular dementia, unspecified severity, without behavioral disturbance, psychotic disturbance, mood disturbance, and anxiety; E86.0 Dehydration; I69.318 Other symptoms and signs involving cognitive functions following cerebral infarction; Z79.82 Long term (current) use of aspirin; Z88.0 Allergy status to penicillin; K21.9 Gastro-esophageal reflux disease without esophagitis
CPT/HCPCS: 36415; 70450; 71045; 72170; 76700; 80048; 80053; 80061; 80307; 80329; 81003; 82140; 82270; 82378; 82550; 82570; 82607; 82728; 82746; 82784; 83010; 83020; 83540; 83550; 83605; 83735; 83921; 83935; 84100; 84153; 84154; 84300; 84443; 84484; 85007; 85025; 85044; 85060; 85384; 85610; 85651; 85660; 85730; 86334; 86703; 86705; 86709; 86803; 87340; 93005; 93306; 93880; 93970; 94664; 96360; 96361; 99285

== ENCOUNTER 2018-11-26 14:28 | Inpatient (IN) | payer MEDICARE, OTHER ==
[~2018-11-26] VITALS: Ht 175.3 cm; Wt 76.7 kg
[~2018-11-26 14:28] MED LIST changes: +AMLODIPINE BESYL5 MG ORAL; +ASPIRIN81 MG ORAL; +CELEXA20 MG ORAL; +LISINOPRIL20 MG ORAL; +MULTIVITAMINS1 EAC2 ORAL; +NAMENDA10 MG ORAL; +PRILOSEC OTC20 MG ORAL; +SEROQUEL100 MG ORAL; +SEROQUEL25 MG ORAL; +ZYRTEC10 MG ORAL
[2018-11-26] MEDS ORDERED: Morphine Sulfate 4mg/ml Inj (IV USE ONLY) IVP ONE (14:45)
--- NOTE | 2018-11-26 15:00 | Emergency Room Report ---
History of Present Illness General Chief Complaint: Lower Extremity Injury Source: EMS (Yarely Porras) Present Illness HPI 83-year-old male presents to the emergency department sent from nursing facility for right hip fracture status post fall. Patient is nonverbal and therefore history and ROS is limited. According to paperwork provided by nursing facility patient was ambulatory with assistance, and has a history of COPD, hypertension, CVA, dementia and is currently taking Seroquel Metoprolol Ativan citalopram [place] Tylenol and amlodipine. No information was provided as to when fall occurred however according to nursing facility x-ray was performed which showed positive for hip fracture and patient has been sent to the ER for evaluation and treatment/management. (Yarely Porras) Allergies: Coded Allergies: PENICILLINS (Verified Allergy, Unknown, 01/30/16) Uncoded Allergies: PENICLLINS (Allergy, Unknown, 10/19/18) Patient History Past Medical History: see triage record, old chart reviewed Past Surgical History: none Pertinent Family History: none Reviewed Nursing Documentation: PMH: Agreed; PSxH: Agreed (Yarely Porras) Nursing Documentation-PMH Hx Cardiac Problems: Yes Hx Hypertension: Yes Hx Neurological Problems: Yes - Dementia Hx Cerebrovascular Accident: Yes (Yarely Porras) Review of Systems All Other Systems: negative except mentioned in HPI (Yarely Porras) Physical Exam Vital Signs Date Time Temp Pulse Resp B/P (MAP) Pulse Ox O2 Delivery O2 Flow Rate FiO2 11/26/18 14:29 98.1 69 18 121/59 95 Room Air Sp02 EP Interpretation: reviewed, normal General Appearance: no apparent distress, alert, GCS 15, non-toxic Head: normocephalic, atraumatic Eyes: bilateral eye normal inspection, bilateral eye PERRL ENT: hearing grossly normal, normal voice Neck: full range of motion, no bony tend Respiratory: chest non-tender, lungs clear, normal breath sounds, no wheezing, speaking full sentences Cardiovascular #1: regular rate, rhythm, no edema Gastrointestinal: non tender, soft Musculoskeletal: back normal, normal range of motion, other - mild leg length discrepancy- difficult to assess. , tender - lateral right hip- pt. able to point to pain as well Neurologic: alert, responsive - not verbal, motor strength/tone normal, sensory intact, motor weakness - in the upper extremities, grossly normal Psychiatric: judgement/insight normal Skin: normal color, no rash, warm/dry, well hydrated, other - no bruises or open wounds (Yarely Porras) Medical Decision Making PA Attestation Dr. Roche is my supervising Physician whom patient management has been discussed with. (Yarely Porras) Diagnostic Impression: Primary Impression: Hip fracture, right Qualified Codes: S72.001A - Fracture of unspecified part of neck of right femur, initial encounter for closed fracture Additional Impression: Lung nodule ER Course 83-year-old male presents to the emergency department sent from nursing facility for right hip fracture status post fall. Patient is nonverbal and therefore history and ROS is limited. According to paperwork provided by nursing facility patient was ambulatory with assistance, and has a history of COPD, hypertension, CVA, dementia and is currently taking Seroquel Metoprolol Ativan citalopram [place] Tylenol and amlodipine. No information was provided as to when fall occurred however according to nursing facility x-ray was performed which showed positive for hip fracture and patient has been sent to the ER for evaluation and treatment/management. Ddx considered but are not limited to Fracture, dislocation, contusion, Sprain/ Strain/Spasm just to name a few. Vital signs: are WNL, pt. is afebrile H&PE are most consistent with musculoskeletal injury will perform imaging to r/ o fractures/dislocations. ORDERS: - Pre-op lab work: -CXR: "RIGHT LUNG NODULE" --Per official radiology report- Please see report for specific details. - X-ray Right hip 2 views - POSITIVE FOR FRACTURE, no Dislocation, or significant soft tissue injury, per preliminary read in ED, and signed by RICHELLE Porras, my supervising physician has reviewed, and agrees with my interpretation. -CT HIP and PELVIS: " angulated fx of the right femoral neck" Per official radiology report- Please see report for specific details. ED INTERVENTIONS: 4mg Morphine IV - DISPOSITION: at this time pt. will be admitted to for Right hip fracture. [ ] agreed to admit the pt. and to continue pt. care management with Orthopedic consult being Dr. France. Labs Test 11/26/18 15:45 White Blood Count 7.8 K/UL (4.8-10.8) Red Blood Count 5.12 M/UL (4.70-6.10) Hemoglobin 12.3 G/DL (14.2-18.0) Hematocrit 38.5 % (42.0-52.0) Mean Corpuscular Volume 75 FL (80-99) Mean Corpuscular Hemoglobin 24.1 PG (27.0-31.0) Mean Corpuscular Hemoglobin Concent 32.0 G/DL (32.0-36.0) Red Cell Distribution Width 13.0 % (11.6-14.8) Platelet Count 114 K/UL (150-450) Mean Platelet Volume 11.5 FL (6.5-10.1) Neutrophils (%) (Auto) 62.4 % (45.0-75.0) Lymphocytes (%) (Auto) 21.6 % (20.0-45.0) Monocytes (%) (Auto) 10.2 % (1.0-10.0) Eosinophils (%) (Auto) 4.4 % (0.0-3.0) Basophils (%) (Auto) 1.5 % (0.0-2.0) Prothrombin Time 10.5 SEC (9.30-11.50) Prothromb Time International Ratio 1.0 (0.9-1.1) Activated Partial Thromboplast Time 30 SEC (23-33) Sodium Level 141 MMOL/L (136-145) Potassium Level 3.8 MMOL/L (3.5-5.1) Chloride Level 101 MMOL/L (98-107) Carbon Dioxide Level 34 MMOL/L (21-32) Anion Gap 6 mmol/L (5-15) Blood Urea Nitrogen 20 mg/dL (7-18) Creatinine 1.2 MG/DL (0.55-1.30) Estimat Glomerular Filtration Rate mL/min (>60) Glucose Level 104 MG/DL (74-106) Calcium Level 10.0 MG/DL (8.5-10.1) Total Bilirubin 0.3 MG/DL (0.2-1.0) Aspartate Amino Transf (AST/SGOT) 35 U/L (15-37) Alanine Aminotransferase (ALT/SGPT) 55 U/L (12-78) Alkaline Phosphatase 89 U/L (46-116) Total Protein 8.2 G/DL (6.4-8.2) Albumin 3.3 G/DL (3.4-5.0) Globulin 4.9 g/dL Albumin/Globulin Ratio 0.7 (1.0-2.7) (Yarely Porras) ER Course Patient seen and examined. I examined the patient with my PA, Ms. Porras. I agree with the assessment. The patient will be admitted the hospital. ([facility]) EKG Diagnostic Results EP Interpretation: Dr. Bradley Rate: normal - 63 Rhythm: NSR ST Segments: no acute changes ASA given to the pt in ED: No PA Scribe Text This Interpretation was scribed by RICHELLE Porras. (Yarely Porras) EKG Time: 14:45 Rate: normal Rhythm: NSR ST Segments: no acute changes ASA given to the pt in ED: No ([facility]) Chest X-Ray Diagnostic Results Chest X-Ray Diagnostic Results : Chest X-Ray Ordered: Yes # of Views/Limited/Complete: 1 View Indication: Chest Pain EP Interpretation: Yes PA Xray: Interpretation reviewed, by supervising MD, and agrees with findings. Interpretation: no consolidation, no effusion, no pneumothorax, no acute cardiopulmonary disease Impression: Other - RIGHT LUNG NODULE Electronically Signed by: Yarely Porras PA-C (Yarely Porras) Other X-Ray Diagnostic Results Other X-Ray Diagnostic Results : X-Ray ordered: Right Hip # of Views/Limited Vs Complete: 2 View Indication: Pain EP Interpretation: Yes PA Xray: Interpretation reviewed, by supervising MD, and agrees with findings. Interpretation: no dislocation, no soft tissue swelling, other - femur fx. Impression: Other - abnormal (Yareyl Porras) CT/MRI/US Diagnostic Results CT/MRI/US Diagnostic Results : Imaging Test Ordered: CT HIP and PELVIS NO CONTRAST Impression " angulated fx of the right femoral neck " Per official radiology report- Please see report for specific details. (Yarely Porras) Last Vital Signs Date Time Temp Pulse Resp B/P (MAP) Pulse Ox O2 Delivery O2 Flow Rate FiO2 11/26/18 14:29 98.1 69 18 121/59 95 Room Air (Yarely Porras) Disposition: ADMITTED INPATIENT Condition: Serious Yarely Porras Nov 26, 2018 15:[address] [facility] Nov 26, 2018 17:12
--- NOTE | 2018-11-26 15:19 | NUR ---
ED Nurse Note:pt. was BIBA from SNF with right hip pain and possible fracture, stasus of fall is unknown ,pt. came with bruising on his right hip , he is A/Ox2 unable to ambulate
--- NOTE | 2018-11-26 15:23 | Diagnostic Imaging Report ---
Indication: Right hip pain, status post trauma Technique: One view of the pelvis, 2 views of the right hip Comparison: 10/21/2018 Findings: Interim development of a fracture of the right femoral neck, not evident previously. This is mildly angulated. No evidence of pelvic fracture. Bones are osteoporotic. The joint spaces are preserved. There are vascular calcifications. Impression: Positive for right femoral neck fracture. Findings discussed by phone with Yarely Porras in the emergency room at the time of interpretation
--- NOTE | 2018-11-26 15:39 | Diagnostic Imaging Report ---
Indication: Reason For Exam: PAIN Technique: One view of the chest Comparison: 10/19/2018 Findings: Less optimal inspiration currently. Questionable nodular opacity in the right midlung, measuring 1 cm diameter and projecting over the right third costochondral junction. Lungs pleural spaces are otherwise clear. The heart is upper limits normal in size. The aorta is tortuous ectatic and calcified Impression: Somewhat hypoventilatory exam Possible 1 cm right midlung nodule, not evident previously. Consider CT for further evaluation as clinically indicated No acute process otherwise
--- NOTE | 2018-11-26 15:55 | NUR ---
ED Nurse Note:blood was sent to labs, pt. brought back from CT and x-rays, given pain meds, VSS, his skin is intact, swabs are done
[2018-11-26 16:13] LABS: BASOPHILS % (AUTO) 1.5 % (0.0-2.0); EOSINOPHILS % (AUTO) 4.4 % (0.0-3.0); HEMATOCRIT 38.5 % (42.0-52.0); HEMOGLOBIN 12.3 G/DL (14.2-18.0); LYMPHOCYTES % (AUTO) 21.6 % (20.0-45.0); MEAN CORPUSCULAR VOLUME 75 FL (80-99); MONOCYTES % (AUTO) 10.2 % (1.0-10.0); NEUTROPHILS % (AUTO) 62.4 % (45.0-75.0); PLATELET COUNT 114 K/UL (150-450); RED BLOOD COUNT 5.12 M/UL (4.70-6.10); WHITE BLOOD COUNT 7.8 K/UL (4.8-10.8)
[2018-11-26 16:16] LABS: ANION GAP 6 mmol/L (5-15); BLOOD UREA NITROGEN 20 mg/dL (7-18); CARBON DIOXIDE 34 MMOL/L (21-32); CHLORIDE 101 MMOL/L (98-107); CREATININE 1.2 MG/DL (0.55-1.30); POTASSIUM 3.8 MMOL/L (3.5-5.1); SODIUM 141 MMOL/L (136-145)
[2018-11-26 16:21] LABS: ALANINE AMINOTRANSFERASE 55 U/L (12-78); ALBUMIN 3.3 G/DL (3.4-5.0); ALBUMIN/GLOBULIN RATIO 0.7 (1.0-2.7); ALKALINE PHOSPHATASE 89 U/L (46-116); ASPARTATE AMINO TRANSFERASE 35 U/L (15-37); BILIRUBIN,TOTAL 0.3 MG/DL (0.2-1.0)
--- NOTE | 2018-11-26 16:24 | Diagnostic Imaging Report ---
Indication: Right hip pain, status post fall Technique: Noncontrast spiral acquisitions obtained through the pelvis and right hip. Multiplanar reconstructions were generated. Total dose length product 407.14 mGycm. CTDIvol(s) 12.29 mGy. Radiation dose was minimized using automated exposure control Comparison: none Findings: There is an angulated fracture of the right femoral neck, displaced anteriorly and superiorly by about one half bone width. No associated pelvic fracture demonstrated. There is some increased attenuation of the overlying subcutaneous fat, consistent with contusion related to the recent trauma. There are degenerative changes of the lumbosacral junction. Areas of lucency within the acetabulum most likely represent degenerative subchondral cysts. There is mild degenerative narrowing of the right hip joint. There is mild distention of the rectum by feces. There are small colonic diverticula. Impression: Positive for right femoral neck fracture, as described No evidence of overlying soft tissue contusion Right hip joint degenerative changes Possible mild rectal fecal impaction The CT scanner at [facility] is accredited by the [employer] and the scans are performed using protocols designed to limit radiation exposure to as low as reasonably achievable to attain images of sufficient resolution adequate for diagnostic evaluation.
[2018-11-26 16:29] VITALS: BP 122/59
[2018-11-26] MEDS ORDERED: Zolpidem 5mg tab ORAL PRN (16:30)
[2018-11-26] MEDS ORDERED: LORazepam Inj 2mg/ml 1ml IV PRN (16:30)
[2018-11-26] MEDS ORDERED: Morphine Sulfate 4mg/ml Inj (IV USE ONLY) IVP PRN (16:30)
[2018-11-26] MEDS ORDERED: Miralax 17gm pkt ORAL PRN (16:30)
[2018-11-26] MEDS ORDERED: Mylanta II UD 30ml ORAL PRN (16:30)
--- NOTE | 2018-11-26 16:35 | NUR ---
ED Nurse Note:pt. is stable to go med surg floor, report given to Carrington SAEED
--- NOTE | 2018-11-26 17:00 | NUR ---
NURSE NOTES: Received report from Luna SAEED. Pt a/a/o x2 laying in bed sleeping with no signs of distress or other issues at this time. IV on the left AV gauge @20 running D51/2NS@50ml/hr. no skin issues except for the right hip fx. pt's daughter at bed side and was able to provide hx of the patient. RN will carry on MD orders. call light within reach, bed in lowest position. side rales up x2. I will f/u as needed.
[2018-11-26] MEDS: D5 1/2NS 1,000 ML IV SCH (17:58)
[2018-11-26] MEDS: Memantine 5 MG TAB ORAL SCH (17:58)
--- NOTE | 2018-11-26 19:00 | NUR ---
NURSE NOTES: Received a report from CHRISTOPHE Frost. Pt is in stable condition. Sleeping comfortably. Family members at the bedside. No c/o pain/discomfort. IV site is patent and intact. Bed in lowest position. Bed alarm is on. Call light within reach. Will continue to monitor.
--- NOTE | 2018-11-26 19:38 | NUR ---
HAND-OFF: Report given to Yue SAEED, pt in stable condition, family at bedside.
[2018-11-26 20:00] VITALS: BP 127/70
[2018-11-26] MEDS: Heparin 5000 units/ml inj SUBQ SCH (20:03)
[2018-11-27] VITALS: BP 116/83
[2018-11-27 04:00] VITALS: BP 143/61
[2018-11-27 07:20] LABS: BASOPHILS % (AUTO) 1.4 % (0.0-2.0); EOSINOPHILS % (AUTO) 4.3 % (0.0-3.0); HEMATOCRIT 36.5 % (42.0-52.0); HEMOGLOBIN 11.5 G/DL (14.2-18.0); LYMPHOCYTES % (AUTO) 23.3 % (20.0-45.0); MEAN CORPUSCULAR VOLUME 77 FL (80-99); NEUTROPHILS % (AUTO) 59.9 % (45.0-75.0); PLATELET COUNT 120 K/UL (150-450); RED BLOOD COUNT 4.76 M/UL (4.70-6.10); RED CELL DISTRIBUTION WIDTH 13.8 % (11.6-14.8); WHITE BLOOD COUNT 6.4 K/UL (4.8-10.8)
--- NOTE | 2018-11-27 07:20 | NUR ---
HAND-OFF: Report given to Suzanne Ulrich RN.
--- NOTE | 2018-11-27 07:30 | NUR ---
NURSE NOTES: Patient is in bed awake and able to verbalize needs. Patient is stable, denies pain or SOB at this time. Patient is encouraged to use call light for assistance, verbalized understanding. All safety measures provided at this time. Patient is in good spirits with bed in locked and lowest position with call light within reach. Will continue to monitor.
[2018-11-27 07:59] LABS: ALANINE AMINOTRANSFERASE 46 U/L (12-78); ALBUMIN 2.9 G/DL (3.4-5.0); ALBUMIN/GLOBULIN RATIO 0.6 (1.0-2.7); ALKALINE PHOSPHATASE 79 U/L (46-116); ANION GAP 9 mmol/L (5-15); ASPARTATE AMINO TRANSFERASE 28 U/L (15-37); BILIRUBIN,TOTAL 0.3 MG/DL (0.2-1.0); BLOOD UREA NITROGEN 18 mg/dL (7-18); CALCIUM 9.2 MG/DL (8.5-10.1); CARBON DIOXIDE 28 MMOL/L (21-32); CHLORIDE 103 MMOL/L (98-107); CREATININE 1.1 MG/DL (0.55-1.30); POTASSIUM 3.9 MMOL/L (3.5-5.1); SODIUM 140 MMOL/L (136-145)
[2018-11-27 08:00] VITALS: BP 158/71
--- NOTE | 2018-11-27 08:06 | Consultation ---
Consult Note Consult Note 83 yo male, group home resident with mechanical fall and c/o hip pain. admitted to [facility] [place] with right hip femoral neck fracture normally ambulates with a walker. xray/CT reviewed. pt a&o, describes events at time of fall. verbalizes understanding of injury and recs for surgery. rt leg shorted and externally rotated. Rt hip femoral neck fracture plan for right hip hemiarthroplasty tomorrow AM NPO tonight, 2D echo ordered d/w pt and nursing. risks/benefits discussed Deedee Mcdaniel Nov 27, 2018 08:06
[2018-11-27] MEDS ORDERED: Citalopram Hydrobromide 10mg Tab ORAL SCH (09:00)
[2018-11-27] MEDS: Heparin 5000 units/ml inj SUBQ SCH ×2 (09:00→21:00)
--- NOTE | 2018-11-27 09:30 | Consultation ---
DATE OF CONSULTATION: 11/27/2018 ORTHOPEDIC CONSULT HISTORY OF PRESENT ILLNESS: The patient is a pleasant 83-year-old male, who is a intermediate resident, had a mechanical fall yesterday. He ambulates with a walker. He fell and he was admitted to [facility] with right hip femoral neck fracture. Orthopedic consult has been called for surgical intervention. PAST MEDICAL HISTORY: Chronic obstructive pulmonary disease, hypertension, prior CVA, and dementia on medication. PAST SURGICAL HISTORY: None. CURRENT MEDICATIONS: Please see chart. ALLERGIES: Penicillin. SOCIAL HISTORY: He is a intermediate resident. He normally gets around with a walker. PHYSICAL EXAMINATION: GENERAL: Very pleasant gentleman. He is cooperative with examination. He does appear to be alert and oriented and able to recall the events leading up to the fall. EXTREMITIES: His right lower extremity is shortened and externally rotated. He has tenderness. He is neurovascularly intact. There is no swelling, skin breakdown or evidence of infection. LABORATORY AND DIAGNOSTIC DATA: X-ray images and CT images are reviewed. There is a right hip femoral neck fracture. IMPRESSION: Right hip femoral neck fracture following a fall. DISCUSSION: At this time, I discussed with the patient my findings. He understands the nature of the injury and recommendations for treatment. We talked about going forward with right hip hemiarthroplasty tomorrow and he is interested in having that done. He wants to get back on a walker and I did discuss with him that after surgery we will get him moving and slowly transition him back to his rehabilitation center where he will continue with physical therapy. The nature of the surgery was discussed including risks of surgery, nerve injury, vessel injury, risk of infection and bleeding, risk for fracture, dislocation, hardware failure, leg length discrepancy, and need for revision surgery down the line was all discussed and he again verbalized understanding of all that we have gone over. We will have him be NPO tonight and order a 2D echo today for preoperative clearance. We will get him set up for surgery early tomorrow and follow along. Thank you for allowing me to participate in the care of this patient. If there are any questions or concerns, please do not hesitate to contact. Billy Torres M.D. Cesilia Albrecht DR: Cee JOB#: [id number] CC:
[2018-11-27] MEDS: Memantine 5 MG TAB ORAL SCH ×2 (09:35→17:56)
--- NOTE | 2018-11-27 11:17 | NUR ---
NURSE NOTES: Daughter told nurse that patient should not have coffee, tea, or acidic drinks. Dietary made aware. Will continue to monitor.
[2018-11-27 12:00] VITALS: BP 134/62
[2018-11-27] MEDS: D5 1/2NS 1,000 ML IV SCH (12:57)
--- NOTE | 2018-11-27 13:03 | Consultation ---
History of Present Illness General Date patient seen: Nov 27, 2018 Chief Complaint: Lower Extremity Injury Present Illness HPI 83 year old male with hx of Afib, CAD, recent NH, Dementia, brought in by paramedics from a retirement with CC of fall and hip pain. The CT of pelvis showed that he has femur neck fractures. He is admitted for further work up. Allergies: Coded Allergies: PENICILLINS (Verified Allergy, Unknown, 01/30/16) Uncoded Allergies: PENICLLINS (Allergy, Unknown, 10/19/18) Medication History Scheduled Amlodipine Besylate* (Amlodipine Besylate*), 5 MG ORAL DAILY, (Reported) Aspirin* (Aspirin*), 81 MG ORAL DAILY, (Reported) Cetirizine Hcl* (Zyrtec*), 10 MG ORAL DAILY, (Reported) Citalopram Hydrobromide* (Celexa*), 20 MG ORAL DAILY, (Reported) Lisinopril (Lisinopril*), 20 MG ORAL DAILY, (Reported) Memantine Hcl* (Namenda*), 5 MG ORAL BID Multivitamins* (Multivitamins*), 1 TAB ORAL DAILY, (Reported) Omeprazole Magnesium (Prilosec Otc), 20 MG ORAL DAILY, (Reported) Quetiapine Fumarate* (Seroquel*), 100 MG ORAL TWICE A DAY, (Reported) Quetiapine Fumarate* (Seroquel*), 50 MG ORAL DAILY, (Reported) Miscellaneous Medications Unable to Obtain Medications (Unable To Obtain Meds), (Reported) Patient History Healthcare decision maker Ann (daughter) [phone] Resuscitation status Full Code Advanced Directive on File Past Medical/Surgical History Past Medical/Surgical History: (1) Protein-calorie malnutrition, severe (2) Advanced dementia Review of Systems All Other Systems: negative except mentioned in HPI Physical Exam General Appearance: cachetic, thin Lines, tubes and drains: peripheral HEENT: normocephalic, atraumatic Neck: non-tender, normal alignment Respiratory/Chest: chest wall non-tender, lungs clear, decreased breath sounds Breasts: no masses Cardiovascular/Chest: normal peripheral pulses Abdomen: normal bowel sounds Genitourinary/Rectal: normal genital exam Last 24 Hour Vital Signs Date Time Temp Pulse Resp B/P (MAP) Pulse Ox O2 Delivery O2 Flow Rate FiO2 11/27/18 12:00 97.9 69 18 134/62 (86) 97 11/27/18 09:35 62 158/71 11/27/18 09:00 Room Air 11/27/18 08:00 97.0 62 17 158/71 (100) 99 11/27/18 04:00 97.6 64 18 143/61 (88) 95 11/27/18 00:00 97.6 68 20 116/83 (94) 97 11/26/18 21:00 Room Air 11/26/18 20:00 98.4 72 16 127/70 (89) 97 11/26/18 18:26 Room Air 11/26/18 18:25 Room Air 11/26/18 16:33 98.0 60 18 122/59 100 Room Air 11/26/18 16:29 98.0 60 18 122/59 100 Room Air 11/26/18 16:08 98.0 11/26/18 14:29 98.1 69 18 121/59 95 Room Air Intake and Output 11/26/18 11/27/18 19:00 07:00 Intake Total 100 ml 550 ml Balance 100 ml 550 ml Intake IV Total 100 ml 550 ml # Voids 1 2 Laboratory Tests Test 11/26/18 15:45 11/27/18 06:07 White Blood Count 7.8 K/UL (4.8-10.8) 6.4 K/UL (4.8-10.8) Red Blood Count 5.12 M/UL (4.70-6.10) 4.76 M/UL (4.70-6.10) Hemoglobin 12.3 G/DL (14.2-18.0) L 11.5 G/DL (14.2-18.0) L Hematocrit 38.5 % (42.0-52.0) L 36.5 % (42.0-52.0) L Mean Corpuscular Volume 75 FL (80-99) L 77 FL (80-99) L Mean Corpuscular Hemoglobin 24.1 PG (27.0-31.0) L 24.2 PG (27.0-31.0) L Mean Corpuscular Hemoglobin Concent 32.0 G/DL (32.0-36.0) 31.6 G/DL (32.0-36.0) L Red Cell Distribution Width 13.0 % (11.6-14.8) 13.8 % (11.6-14.8) Platelet Count 114 K/UL (150-450) L 120 K/UL (150-450) L Mean Platelet Volume 11.5 FL (6.5-10.1) H 10.4 FL (6.5-10.1) H Neutrophils (%) (Auto) 62.4 % (45.0-75.0) 59.9 % (45.0-75.0) Lymphocytes (%) (Auto) 21.6 % (20.0-45.0) 23.3 % (20.0-45.0) Monocytes (%) (Auto) 10.2 % (1.0-10.0) H 11.0 % (1.0-10.0) H Eosinophils (%) (Auto) 4.4 % (0.0-3.0) H 4.3 % (0.0-3.0) H Basophils (%) (Auto) 1.5 % (0.0-2.0) 1.4 % (0.0-2.0) Prothrombin Time 10.5 SEC (9.30-11.50) Prothromb Time International Ratio 1.0 (0.9-1.1) Activated Partial Thromboplast Time 30 SEC (23-33) Sodium Level 141 MMOL/L (136-145) 140 MMOL/L (136-145) Potassium Level 3.8 MMOL/L (3.5-5.1) 3.9 MMOL/L (3.5-5.1) Chloride Level 101 MMOL/L (98-107) 103 MMOL/L (98-107) Carbon Dioxide Level 34 MMOL/L (21-32) H 28 MMOL/L (21-32) Anion Gap 6 mmol/L (5-15) 9 mmol/L (5-15) Blood Urea Nitrogen 20 mg/dL (7-18) H 18 mg/dL (7-18) Creatinine 1.2 MG/DL (0.55-1.30) 1.1 MG/DL (0.55-1.30) Estimat Glomerular Filtration Rate mL/min (>60) mL/min (>60) Glucose Level 104 MG/DL (74-106) 96 MG/DL (74-106) Calcium Level 10.0 MG/DL (8.5-10.1) 9.2 MG/DL (8.5-10.1) Total Bilirubin 0.3 MG/DL (0.2-1.0) 0.3 MG/DL (0.2-1.0) Aspartate Amino Transf (AST/SGOT) 35 U/L (15-37) 28 U/L (15-37) Alanine Aminotransferase (ALT/SGPT) 55 U/L (12-78) 46 U/L (12-78) Alkaline Phosphatase 89 U/L (46-116) 79 U/L (46-116) Total Protein 8.2 G/DL (6.4-8.2) 7.5 G/DL (6.4-8.2) Albumin 3.3 G/DL (3.4-5.0) L 2.9 G/DL (3.4-5.0) L Globulin 4.9 g/dL 4.6 g/dL Albumin/Globulin Ratio 0.7 (1.0-2.7) L 0.6 (1.0-2.7) L Thyroid Stimulating Hormone (TSH) 2.265 uiU/mL (0.358-3.740) Height (Feet): 5 Height (Inches): 9.00 Weight (Pounds): 169 Medications Current Medications Medications (Trade) Dose Ordered Sig/Lea Route PRN Reason Start Time Stop Time Status Last Admin Dose Admin Acetaminophen (Tylenol) 650 mg Q4H PRN ORAL fever 11/26/18 16:30 12/26/18 16:29 Al Hydroxide/Mg Hydroxide (Mylanta II) 30 ml Q6H PRN ORAL dyspepsia 11/26/18 16:30 12/26/18 16:29 Amlodipine Besylate (Norvasc) 5 mg DAILY ORAL 11/27/18 09:00 12/27/18 08:59 11/27/18 09:35 Citalopram Hydrobromide (celeXA) 20 mg DAILY ORAL 11/27/18 09:00 12/27/18 08:59 11/27/18 09:35 Dextrose (Dextrose 50%) 25 ml Q30M PRN IV Hypoglycemia 11/26/18 16:30 12/26/18 16:29 Dextrose (Dextrose 50%) 50 ml Q30M PRN IV Hypoglycemia 11/26/18 16:30 12/26/18 16:29 Dextrose/Sodium Chloride 1,000 ml @ 50 mls/hr Q20H IV 11/26/18 16:29 12/26/18 16:28 11/26/18 17:58 Heparin Sodium (Porcine) (Heparin 5000 units/ml) 5,000 units EVERY 12 HOURS SUBQ 11/26/18 21:00 12/26/18 20:59 Lorazepam (Ativan 2mg/ml 1ml) 0.5 mg Q4H PRN IV For Anxiety 11/26/18 16:30 12/03/18 16:29 Memantine (Namenda) 5 mg BID ORAL 11/26/18 18:00 12/26/18 17:59 11/27/18 09:35 Morphine Sulfate (Morphine Sulfate) 2 mg Q4H PRN IVP For Pain 4-6 11/26/18 16:30 12/03/18 16:29 Morphine Sulfate (Morphine Sulfate) 4 mg Q4H PRN IVP For Pain 7-10 11/26/18 16:30 12/03/18 16:29 Ondansetron HCl (Zofran) 4 mg Q6H PRN IVP Nausea & Vomiting 11/26/18 16:30 12/26/18 16:29 Polyethylene Glycol (Miralax) 17 gm HSPRN PRN ORAL Constipation 11/26/18 16:30 12/26/18 16:29 Quetiapine Fumarate (SEROquel) 50 mg DAILY ORAL 11/27/18 09:00 12/27/18 08:59 11/27/18 09:35 Zolpidem Tartrate (Ambien) 5 mg HSPRN PRN ORAL Insomnia 11/26/18 16:30 12/03/18 16:29 Assessment/Plan Problem List: (1) Hip fracture, right ICD Codes: S72.001A - Fracture of unspecified part of neck of right femur, initial encounter for closed fracture SNOMED: 749695768 Qualifiers: Qualified Codes: S72.001A - Fracture of unspecified part of neck of right femur, initial encounter for closed fracture (2) Protein-calorie malnutrition, severe ICD Codes: E43 - Unspecified severe protein-calorie malnutrition SNOMED: 469538519, [id number], [id number] (3) Advanced dementia ICD Codes: F03.90 - Unspecified dementia without behavioral disturbance SNOMED: 09112913 Assessment/Plan: symptomatic treatment check electrolytes iv fluid ortho evaluation monitor BP continue dementia medication. Linda Prater MD Nov 27, 2018 13:03
--- NOTE | 2018-11-27 15:10 | NUR ---
CASE MANAGEMENT:REVIEW 83 YR OLD MALE BIBA FROM [facility] CC: RT HIP PAIN SI: RT HIP FRACTURE. LUNG NODULE 98.0 69 18 121/59 95% ON RA H/H-12.3/38.5 PLT-114 IS: IV MORPHINE CT HIP XRAY CHEST AND HIP : TO MED/SURG PLAN: SURGICAL CONSULT ~ NPO AFTER MIDNIGHT
[2018-11-27] MEDS: Morphine Sulfate 2mg/ml Inj(IV/IM USE ONLY) IVP PRN (15:56)
[2018-11-27 16:00] VITALS: BP 133/59
--- NOTE | 2018-11-27 19:30 | NUR ---
HAND-OFF: Report given to Jose SAEED. Patient is stable.
--- NOTE | 2018-11-27 19:40 | NUR ---
NURSE NOTES: Received report from CHRISTOPHE Palacios and rounds made. Received pt lying in bed, awake, alert, and oriented x 1 to 2. Pt denies any pain at this time. No distress noted. IV R FA and L AC patent and intact. IV fluid infusing to L AC as ordered. Safety measures maintained. Bed in lowest and position and locked, side rails up x 2, call light within reach. Will continue to monitor.
[2018-11-27 20:00] VITALS: BP 136/72
[2018-11-28] VITALS (17 sets, daily range): BP systolic 121–182; BP diastolic 59–90
--- NOTE | 2018-11-28 00:30 | History and Physical Report ---
DATE OF ADMISSION: 11/26/2018 CONSULTANTS: 1. Billy Torres M.D. 2. Linda Prater M.D. 3. Mitch Irwin M.D. CHIEF COMPLAINT: Fall and fractured right femur. BRIEF HISTORY: This is an 83-year-old male living at [facility], apparently tripped and fell on his right thigh, was noted to have a fractured right femur, transferred to [facility], diagnosed with the above, and admitted to medical floor for further treatment. Currently, calm in bed, slight right hip pain, no complaint. REVIEW OF SYSTEMS: No chest pain. No shortness of breath. No nausea, vomiting, or diarrhea. PAST MEDICAL HISTORY: Includes hypertension, dementia, acute tubular necrosis, and malnutrition. PAST SURGICAL HISTORY: None. MEDICATIONS: Amlodipine, citalopram, quetiapine, heparin, memantine, morphine, lorazepam, and zolpidem. ALLERGIES: Denies. SOCIAL HISTORY: No smoking. No alcohol. No intravenous drug abuse. FAMILY HISTORY: Noncontributory. PHYSICAL EXAMINATION: GENERAL: Calm in bed, oriented x2, and in no acute distress. VITAL SIGNS: Temperature is 97, pulse 69, respirations 18, and blood pressure 134/62. CARDIOVASCULAR: No murmurs. LUNGS: Distant and clear. ABDOMEN: Bowel sounds positive. Nontender. Nondistended. EXTREMITIES: No cyanosis, clubbing, or edema. Right leg slightly short, externally rotated to 45 degrees. NEUROLOGIC: The patient moves all extremities, slightly weak. LABORATORY AND DIAGNOSTIC DATA: H and H are 11 and 36. Otherwise, CBC is normal. Platelets 120,000. BMP is normal. Albumin 2.9. INR is 1.0. PTT is 30. ASSESSMENT: 1. Fractured right hip. 2. Hypertension. 3. Dementia. 4. Malnutrition. 5. Anemia. PLAN: 1. PT and dietary evaluation. 2. CBC and BMP in the morning. 3. Resume home medications. 4. Blood pressure and pain control. 5. Preop per cardio. Possible surgery tomorrow. 6. We will continue to follow the patient. Mina Garcia D.O. DR: SHELLIE JOB#: [id number] CC:
[2018-11-28] MEDS: Morphine Sulfate 2mg/ml Inj(IV/IM USE ONLY) IVP PRN (05:10)
[2018-11-28] MEDS: D5 1/2NS 1,000 ML IV SCH (06:03)
[2018-11-28] MEDS ORDERED: Bacitracin 50000 Units Vial ONE (06:23)
[2018-11-28] MEDS ORDERED: Bupivacaine 0.5% Inj 30 ml vial INJ ONE ×2 (06:26→12:58)
[2018-11-28] MEDS ORDERED: Duramorph PF 5mg/10ml amp ONE ×2 (06:26→12:58)
[2018-11-28] MEDS ORDERED: Propofol 200mg/20ml IV ONE (06:29)
[2018-11-28] MEDS ORDERED: Lidocaine 1% Plain 30 ml INJ ONE ×2 (06:29→13:03)
[2018-11-28] MEDS ORDERED: EPINEPHrine 1mg/1ml Amp ONE ×2 (06:29→13:03)
[2018-11-28] MEDS ORDERED: Tranexamic Acid 1,000 MG in NS 65 ML IV ONE ×2 (06:30→13:45)
[2018-11-28] MEDS ORDERED: Sodium Chloride 10ml vial INJ ONE (06:30)
--- NOTE | 2018-11-28 06:30 | NUR ---
NURSE NOTES: Pt picked up and taken down to O.R. for surgery. Pt in stable condition. No distress noted. All belongings, glasses and clothing in pt room in the drawer.
[2018-11-28] MEDS ORDERED: Midazolam 2mg/2ml Inj ONE ×2 (06:38→13:03)
[2018-11-28] MEDS ORDERED: HYDROcodone/Acetamin 5/325 tab ORAL PRN ×3 (06:45→13:45)
[2018-11-28] MEDS ORDERED: fentaNYL 100 mcg/2 mL IV PRN ×3 (06:45→13:45)
[2018-11-28] MEDS ORDERED: LORazepam Inj 2mg/ml 1ml IV PRN ×4 (06:45→13:45)
[2018-11-28] MEDS ORDERED: LR 1000ml 1,000 ML IVLG SCH ×2 (06:45→13:42)
[2018-11-28] MEDS ORDERED: oxyCODONE HCL/Acetaminophen 5/325mg ORAL PRN ×3 (06:45→13:45)
[2018-11-28] MEDS ORDERED: Atropine Sulfate 0.4mg/ml inj IVP PRN ×3 (06:45→13:45)
[2018-11-28] MEDS ORDERED: Midazolam 2mg/2ml Inj IVP PRN ×3 (06:45→13:45)
[2018-11-28] MEDS ORDERED: Hydromorphone 0.5mg/0.5ml inj IVP PRN ×3 (06:45→13:45)
[2018-11-28] MEDS ORDERED: Labetalol 5mg/ml 20ml vial IV PRN ×3 (06:45→13:45)
[2018-11-28] MEDS ORDERED: DiphenhydrAMINE 50mg/ml Inj IVP PRN ×3 (06:45→13:45)
[2018-11-28] MEDS ORDERED: HYDROcodone/Acetamin 7.5/325 tab ORAL PRN ×5 (06:45→13:45)
[2018-11-28 06:46] LABS: ANION GAP 9 mmol/L (5-15); BLOOD UREA NITROGEN 17 mg/dL (7-18); CARBON DIOXIDE 28 MMOL/L (21-32); CHLORIDE 102 MMOL/L (98-107); CREATININE 1.2 MG/DL (0.55-1.30); POTASSIUM 4.1 MMOL/L (3.5-5.1); SODIUM 139 MMOL/L (136-145)
--- NOTE | 2018-11-28 06:46 | Anethesia Preoperative Eval ---
Anesthesia Pre-op PMH/ROS General Date of Evaluation: Nov 28, 2018 ASA Score: ASA 4 Mallampati Score Class I : Soft palate, uvula, fauces, pillars visible Class II: Soft palate, uvula, fauces visible Class III: Soft palate, base of uvula visible Class IV: Only hard plate visible Allergies: Coded Allergies: PENICILLINS (Verified Allergy, Unknown, 01/30/16) Uncoded Allergies: PENICLLINS (Allergy, Unknown, 10/19/18) Patient NPO?: Yes NPO Date: Nov 28, 2018 NPO Time: 0000 Anesthesia Pre-op Phys. Exam Physician Exam Last Vital Signs Date Time Temp Pulse Resp B/P (MAP) Pulse Ox O2 Delivery O2 Flow Rate FiO2 11/28/18 04:00 98.4 77 18 151/68 (95) 98 11/27/18 21:00 Room Air Anesthesia Pre-op A/P Labs Hematology Test 11/28/18 05:25 White Blood Count Pending Red Blood Count Pending Hemoglobin Pending Hematocrit Pending Mean Corpuscular Volume Pending Mean Corpuscular Hemoglobin Pending Mean Corpuscular Hemoglobin Concent Pending Red Cell Distribution Width Pending Platelet Count Pending Mean Platelet Volume Pending Neutrophils (%) (Auto) Pending Lymphocytes (%) (Auto) Pending Monocytes (%) (Auto) Pending Eosinophils (%) (Auto) Pending Basophils (%) (Auto) Pending Chemistry Test 11/28/18 05:25 Sodium Level Pending Potassium Level Pending Chloride Level Pending Carbon Dioxide Level Pending Blood Urea Nitrogen Pending Creatinine Pending Estimat Glomerular Filtration Rate Pending Glucose Level Pending Calcium Level Pending Pool Peck MD Nov 28, 2018 06:46
--- NOTE | 2018-11-28 06:54 | Pre-Procedure Note/Attestation ---
Pre-Procedure Note/Attestation Complete Prior to Procedure Planned Procedure: right Procedure Narrative: rt hip hemiarthroplasty Indications for Procedure Pre-Operative Diagnosis: rt hip fracture Attestation I attest that I discussed the nature of the procedure; its benefits; risks and complications; and alternatives (and the risks and benefits of such alternatives ), prior to the procedure, with the patient (or the patient's legal healthcare sales representative). I attest that, if there was a reasonable possibility of needing a blood transfusion, the patient (or the patient's legal healthcare sales representative) was given the [facility] standardized written summary, pursuant to the Tevin Barrington Blood Safety Act ([place] Health and Safety Code # 1645, as amended). I attest that I re-evaluated the patient just prior to the surgery and that there has been no change in the patient's H&P, except as documented below: none Billy Torres MD Nov 28, 2018 06:54
[2018-11-28] MEDS ORDERED: HYDROmorphone 1mg/ml Carpuject SUBQ PRN ×3 (07:00→09:33)
[2018-11-28 07:05] LABS: BASOPHILS % (AUTO) 1.2 % (0.0-2.0); EOSINOPHILS % (AUTO) 3.7 % (0.0-3.0); HEMATOCRIT 35.4 % (42.0-52.0); HEMOGLOBIN 11.1 G/DL (14.2-18.0); LYMPHOCYTES % (AUTO) 21.2 % (20.0-45.0); MEAN CORPUSCULAR VOLUME 76 FL (80-99); NEUTROPHILS % (AUTO) 63.9 % (45.0-75.0); PLATELET COUNT 167 K/UL (150-450); RED BLOOD COUNT 4.64 M/UL (4.70-6.10); RED CELL DISTRIBUTION WIDTH 13.4 % (11.6-14.8); WHITE BLOOD COUNT 8.2 K/UL (4.8-10.8)
--- NOTE | 2018-11-28 07:20 | NUR ---
NURSE NOTES: CHRISTOPHE Marte from O.R. called and said pt will be coming back up because surgery is delayed till 1:30PM. Per CHRISTOPHE Marte pt received Versed 45 mins ago. Pt will be pick out hand at 1:00 PM to go down for surgery.
--- NOTE | 2018-11-28 07:45 | NUR ---
HAND-OFF: Report given to CHRISTOPHE Munoz. Pt in stable condition.
--- NOTE | 2018-11-28 08:01 | NUR ---
NURSE NOTES: Received report from Jose SAEED. Patient arrived back to unit in stable condition, surgery postponed until this afternoon. Patient is asleep, but arousable to name/light shaking. Reporting no pain at this time. IV intact, running IVF per order. Fall precautions maintained, side rails upx3, bed low and locked, call light in reach. Will continue to monitor.
--- NOTE | 2018-11-28 08:30 | Cardiac Electrophysiology PN ---
Subjective Subjective [id number] Objective Last 24 Hour Vital Signs Date Time Temp Pulse Resp B/P (MAP) Pulse Ox O2 Delivery O2 Flow Rate FiO2 11/28/18 07:40 97.4 101 21 156/87 98 Room Air 11/28/18 07:35 101 22 173/89 100 Simple Mask 6 11/28/18 07:30 103 21 177/88 100 Simple Mask 6 11/28/18 07:25 101 20 170/89 100 Simple Mask 6 11/28/18 07:20 97.4 100 20 182/90 100 Simple Mask 6 11/28/18 04:00 98.4 77 18 151/68 (95) 98 11/28/18 00:00 98.8 73 18 137/59 (85) 96 11/27/18 21:00 Room Air 11/27/18 20:00 99.4 73 18 136/72 (93) 97 11/27/18 16:00 97.8 78 19 133/59 (83) 97 11/27/18 12:00 97.9 69 18 134/62 (86) 97 11/27/18 09:35 62 158/71 11/27/18 09:00 Room Air Intake and Output 11/27/18 11/28/18 19:00 07:00 Intake Total 290 ml 600 ml Balance 290 ml 600 ml Intake Oral 240 ml 50 ml IV Total 50 ml 550 ml # Voids 3 2 Laboratory Tests Test 11/28/18 05:25 White Blood Count 8.2 K/UL (4.8-10.8) Red Blood Count 4.64 M/UL (4.70-6.10) L Hemoglobin 11.1 G/DL (14.2-18.0) L Hematocrit 35.4 % (42.0-52.0) L Mean Corpuscular Volume 76 FL (80-99) L Mean Corpuscular Hemoglobin 24.0 PG (27.0-31.0) L Mean Corpuscular Hemoglobin Concent 31.4 G/DL (32.0-36.0) L Red Cell Distribution Width 13.4 % (11.6-14.8) Platelet Count 167 K/UL (150-450) Mean Platelet Volume 9.9 FL (6.5-10.1) Neutrophils (%) (Auto) 63.9 % (45.0-75.0) Lymphocytes (%) (Auto) 21.2 % (20.0-45.0) Monocytes (%) (Auto) 10.0 % (1.0-10.0) Eosinophils (%) (Auto) 3.7 % (0.0-3.0) H Basophils (%) (Auto) 1.2 % (0.0-2.0) Sodium Level 139 MMOL/L (136-145) Potassium Level 4.1 MMOL/L (3.5-5.1) Chloride Level 102 MMOL/L (98-107) Carbon Dioxide Level 28 MMOL/L (21-32) Anion Gap 9 mmol/L (5-15) Blood Urea Nitrogen 17 mg/dL (7-18) Creatinine 1.2 MG/DL (0.55-1.30) Estimat Glomerular Filtration Rate mL/min (>60) Glucose Level 102 MG/DL (74-106) Calcium Level 9.0 MG/DL (8.5-10.1) Microbiology Date/Time Source Procedure Growth Status 11/26/18 17:00 Nasal Nares MRSA Culture - Final NO METHICILLIN RESISTANT STAPH AUREUS... Complete 11/26/18 17:00 Rectum VRE Culture - Final NO VANCOMYCIN RESISTANT ENTEROCOCCUS ... Complete Mitch Irwin MD Nov 28, 2018 08:30
--- NOTE | 2018-11-28 08:51 | NUR ---
NURSE NOTES: Charge nurse received order from Dr. Valdez to transfer patient to tele for active a-fib. Bed ready. Will transfer now.
[2018-11-28] MEDS ORDERED: Enoxaparin 40mg Inj SUBQ SCH (09:00)
[2018-11-28] MEDS ORDERED: Citalopram Hydrobromide 10mg Tab ORAL SCH (09:00)
[2018-11-28] MEDS ORDERED: Docusate 100mg cap ORAL SCH (09:00)
--- NOTE | 2018-11-28 09:00 | NUR ---
NURSE NOTES: Patient transferred to telemetry bed 216. Report given to Leoncio SAEED. Patient is in stable condition.
--- NOTE | 2018-11-28 09:00 | NUR ---
NURSE NOTES: Received report from CHRISTOPHE Munoz. Patient transferred from to [facility], equipment monitor phototypesetting on, belonging list checked with RN, placed with patient. Patient open eyes to verbal stimulus, AOx2. Endorsed patient scheduled for right hip hemiarthroplasty today 11/28/18. Awaiting for surgery. Patient refused to be checked on the back for skin issue due to pain on right hip. IV on right FA 22G, left AC 20G, asymptomatic, patent, intact, IV fluid running at prescribed rate. Patient on room air, SR, HR 91. VS at the time of arrival 152/80, HR 91, 99% on room air, T 98.1. Endorsed strict NPO status prior to surgery, Pre-op list done on 3E unit. Bed in lowest position, side rails upx2, call light within reach. Will continue to monitor.
[2018-11-28] MEDS ORDERED: Miralax 17gm pkt ORAL PRN (09:34)
[2018-11-28] MEDS ORDERED: D5 1/2NS w/KCl 20mEq 1,000 ML IV SCH (10:00)
--- NOTE | 2018-11-28 10:13 | NUR ---
NURSE NOTES: Patient's daughter Eda informed patient moved to telemetry.
--- NOTE | 2018-11-28 10:19 | NUR ---
P.T Note: Pt was transferred telemetry and awaiting for hip surgery scheduled today. P.T evaluation on hold. Will need new P.T order post op.
[2018-11-28] MEDS ORDERED: Mylanta II UD 30ml ORAL PRN (10:30)
[2018-11-28] MEDS ORDERED: Clindamycin 600mg 50 ML IV SCH (12:00)
[2018-11-28] MEDS: Clindamycin 600mg 50 ML IV SCH ×2 (12:46→18:37)
[2018-11-28] MEDS: D5 1/2NS w/KCl 20mEq 1,000 ML IV SCH ×2 (12:46→23:20)
[2018-11-28] MEDS ORDERED: NS Irrig 1000ml ONE (13:00)
[2018-11-28] MEDS: Docusate 100mg cap ORAL SCH ×2 (13:00→18:37)
[2018-11-28] MEDS ORDERED: Sterile Water Irrig 1000ml IRRIG ONE (13:00)
--- NOTE | 2018-11-28 13:00 | NUR ---
NURSE NOTES: Per shannon Ornelas for off tele order for hip surgery. Order noted, entered, carried out. Patient off unit for Right hip hemiarthroplasty.
[2018-11-28] MEDS ORDERED: ePHEDrine 50mg/ml Inj ONE (13:34)
[2018-11-28] MEDS ORDERED: Phenylephrine 10mg/ml Vial ONE (13:37)
--- NOTE | 2018-11-28 14:00 | NUR ---
CASE MANAGEMENT:REVIEW 11/28/18 SI: RT HIP FRACTURE 97.5 89 19 156/82 98% ON RA H/H-11.1/35.4 IS: TO SURGERY FOR: RT HIP HEMIARTHROPLASTY : TO TELEMETRY POST-OP
--- NOTE | 2018-11-28 14:02 | Anethesia Preoperative Eval ---
Anesthesia Pre-op PMH/ROS General Date of Evaluation: Nov 28, 2018 Time of Evaluation: 12:51 Anesthesiologist: Cisco ASA Score: ASA 4 Mallampati Score Class I : Soft palate, uvula, fauces, pillars visible Class II: Soft palate, uvula, fauces visible Class III: Soft palate, base of uvula visible Class IV: Only hard plate visible Mallampati Classification: Class III Surgeon: Melissa Diagnosis: R Hip Fx Surgical Procedure: R Hip Hemiarthroplasty Anesthesia History: none Family History: no anesthesia problems Allergies: Coded Allergies: PENICILLINS (Verified Allergy, Unknown, 01/30/16) Uncoded Allergies: PENICLLINS (Allergy, Unknown, 10/19/18) Medications: see eMAR Patient NPO?: Yes NPO Date: Nov 28, 2018 NPO Time: 0000 Past Medical History Cardiovascular: Reports: HTN, arrhythmia - New onset AFib Pulmonary: Reports: other - Lung Nodule Gastrointestinal/Genitourinary: Reports: GERD, CRI - Dialysis, other - Hemtochezia Neurologic/Psychiatric: Reports: dementia, CVA Hematology/Immune: Reports: anemia Anesthesia Pre-op Phys. Exam Physician Exam Last Vital Signs Date Time Temp Pulse Resp B/P (MAP) Pulse Ox O2 Delivery O2 Flow Rate FiO2 11/28/18 12:00 97.5 89 19 156/82 (106) 98 11/28/18 09:00 Room Air 11/28/18 07:35 6 Constitutional: NAD Neurologic: CN 2-12 intact Cardiovascular: RRR Respiratory: CTA Gastrointestinal: S/NT/ND Airway Exam Mallampati Score: Class III MO: limited ROM: limited Teeth: missing, intact Anesthesia Pre-op A/P Labs Hematology Test 11/28/18 05:25 White Blood Count 8.2 K/UL (4.8-10.8) Red Blood Count 4.64 M/UL (4.70-6.10) L Hemoglobin 11.1 G/DL (14.2-18.0) L Hematocrit 35.4 % (42.0-52.0) L Mean Corpuscular Volume 76 FL (80-99) L Mean Corpuscular Hemoglobin 24.0 PG (27.0-31.0) L Mean Corpuscular Hemoglobin Concent 31.4 G/DL (32.0-36.0) L Red Cell Distribution Width 13.4 % (11.6-14.8) Platelet Count 167 K/UL (150-450) Mean Platelet Volume 9.9 FL (6.5-10.1) Neutrophils (%) (Auto) 63.9 % (45.0-75.0) Lymphocytes (%) (Auto) 21.2 % (20.0-45.0) Monocytes (%) (Auto) 10.0 % (1.0-10.0) Eosinophils (%) (Auto) 3.7 % (0.0-3.0) H Basophils (%) (Auto) 1.2 % (0.0-2.0) Chemistry Test 11/28/18 05:25 Sodium Level 139 MMOL/L (136-145) Potassium Level 4.1 MMOL/L (3.5-5.1) Chloride Level 102 MMOL/L (98-107) Carbon Dioxide Level 28 MMOL/L (21-32) Anion Gap 9 mmol/L (5-15) Blood Urea Nitrogen 17 mg/dL (7-18) Creatinine 1.2 MG/DL (0.55-1.30) Estimat Glomerular Filtration Rate mL/min (>60) Glucose Level 102 MG/DL (74-106) Calcium Level 9.0 MG/DL (8.5-10.1) Risk Assessment & Plan Assessment: ASA 4 Plan: GA, Spinal Status Change Before Surgery: No Pre-Antibiotics Dru Gram Ancef IV Given Within 1 Hr of Incision: Yes Time Given: 13:18 Pool Peck MD Nov 28, 2018 14:02
--- NOTE | 2018-11-28 14:04 | Immediate Post-Op Evaluation ---
Immediate Post-Op Evalulation Immediate Post-Op Evalulation Procedure: R Hip Hemiarthroplasty Date of Evaluation: Nov 28, 2018 Time of Evaluation: 14:55 IV Fluids: 400 LR Blood Products: 0 Estimated Blood Loss: 75 Urinary Output: 0 Blood Pressure Systolic: 121 Blood Pressure Diastolic: 62 Pulse Rate: 112 Respiratory Rate: 16 O2 Sat by Pulse Oximetry: 100 Temperature (Fahrenheit): 98.1 Pain Score (1-10): 0 Nausea: No Vomiting: No Complications 0 Patient Status: awake, reacts, patent, none Hydration Status: adequate Dru Gram Ancef IV Given Within 1 Hr of Incision: Yes Time Given: 13:18 Pool Peck MD Nov 28, 2018 14:04
--- NOTE | 2018-11-28 14:05 | 48 Hour Post Anesthesia Eval ---
Post Anesthesia Evaluation Procedure: R Hip Hemiarthroplasty Date of Evaluation: Nov 28, 2018 Time of Evaluation: 16:59 Blood Pressure Systolic: 147 0: 89 Pulse Rate: 111 Respiratory Rate: 18 Temperature (Fahrenheit): 98.2 O2 Sat by Pulse Oximetry: 100 Airway: patent Nausea: No Vomiting: No Pain Intensity: 0 Hydration Status: adequate Cardiopulmonary Status: Stable Mental Status/LOC: patient returned to baseline Follow-up Care/Observations: 0 Post-Anesthesia Complications: 0 Follow-up care needed: N/A Pool Peck MD Nov 28, 2018 14:05
--- NOTE | 2018-11-28 14:18 | General Progress Note ---
Assessment/Plan Problem List: (1) ATN (acute tubular necrosis) ICD Codes: N17.0 - Acute kidney failure with tubular necrosis SNOMED: 50499688 (2) Hip fracture, right ICD Codes: S72.001A - Fracture of unspecified part of neck of right femur, initial encounter for closed fracture SNOMED: 079284250 Qualifiers: Qualified Codes: S72.001A - Fracture of unspecified part of neck of right femur, initial encounter for closed fracture (3) Protein-calorie malnutrition, severe ICD Codes: E43 - Unspecified severe protein-calorie malnutrition SNOMED: 363392751, 593368147, 152027214 (4) Advanced dementia ICD Codes: F03.90 - Unspecified dementia without behavioral disturbance SNOMED: 64060139 Status: unchanged Assessment/Plan: pt diet pain control cbc bmp am Subjective Constitutional: Reports: weakness Allergies: Coded Allergies: PENICILLINS (Verified Allergy, Unknown, 01/30/16) Uncoded Allergies: PENICLLINS (Allergy, Unknown, 10/19/18) All Systems: reviewed and negative except above Subjective calm in bed awaiting sx Objective Last 24 Hour Vital Signs Date Time Temp Pulse Resp B/P (MAP) Pulse Ox O2 Delivery O2 Flow Rate FiO2 11/28/18 12:00 97.5 89 19 156/82 (106) 98 11/28/18 09:00 Room Air 11/28/18 08:39 96 11/28/18 07:40 97.4 101 21 156/87 98 Room Air 11/28/18 07:35 101 22 173/89 100 Simple Mask 6 11/28/18 07:30 103 21 177/88 100 Simple Mask 6 11/28/18 07:25 101 20 170/89 100 Simple Mask 6 11/28/18 07:20 97.4 100 20 182/90 100 Simple Mask 6 11/28/18 04:00 98.4 77 18 151/68 (95) 98 11/28/18 00:00 98.8 73 18 137/59 (85) 96 11/27/18 21:00 Room Air 11/27/18 20:00 99.4 73 18 136/72 (93) 97 11/27/18 16:00 97.8 78 19 133/59 (83) 97 Intake and Output 11/27/18 11/28/18 19:00 07:00 Intake Total 290 ml 600 ml Balance 290 ml 600 ml Intake Oral 240 ml 50 ml IV Total 50 ml 550 ml # Voids 3 2 Laboratory Tests 11/28/18 05:25: White Blood Count 8.2, Red Blood Count 4.64L, Hemoglobin 11.1L, Hematocrit 35.4L , Mean Corpuscular Volume 76L, Mean Corpuscular Hemoglobin 24.0L, Mean Corpuscular Hemoglobin Concent 31.4L, Red Cell Distribution Width 13.4, Platelet Count 167, Mean Platelet Volume 9.9, Neutrophils (%) (Auto) 63.9, Lymphocytes (%) (Auto) 21.2, Monocytes (%) (Auto) 10.0, Eosinophils (%) (Auto) 3.7H, Basophils (%) (Auto) 1.2, Sodium Level 139, Potassium Level 4.1, Chloride Level 102, Carbon Dioxide Level 28, Anion Gap 9, Blood Urea Nitrogen 17, Creatinine 1.2, Estimat Glomerular Filtration Rate , Glucose Level 102, Calcium Level 9.0 Height (Feet): 5 Height (Inches): 9.00 Weight (Pounds): 169 General Appearance: lethargic EENT: normal ENT inspection Neck: normal alignment Cardiovascular: normal peripheral pulses, normal rate, regular rhythm Respiratory/Chest: chest wall non-tender, lungs clear, normal breath sounds Abdomen: normal bowel sounds, non tender, soft Extremities: normal inspection Edema: no edema noted Arm (L), no edema noted Arm (R), no edema noted Leg (L), no edema noted Leg (R), no edema noted Pedal (L), no edema noted Pedal (R), no edema noted Generalized Neurologic: responsive, motor weakness Skin: normal pigmentation, warm/dry Mina Garcia DO Nov 28, 2018 14:18
[2018-11-28] MEDS ORDERED: Flumazenil 0.1mg/ml 5ml Inj IV ONE (14:26)
--- NOTE | 2018-11-28 14:29 | Brief Operative Note ---
Immediate Post Operative Note Operative Note Chief Complaint: rt hip pain Pre-op Diagnosis: rt hip fx Procedure: rt hip hemiarthroplasty Post-op Diagnosis: same as pre-op Findings: consistent w/pre-op dx studies Surgeon: md zoë Options Trader: blane thao Anesthesiologist: md tyler Anesthesia: general Specimen: yes Complications: none Condition: stable Fluids: ns Estimated Blood Loss: minimal Drains: none Implant(s) used?: Yes - Deedee Cisneros Nov 28, 2018 14:29
--- NOTE | 2018-11-28 14:49 | Pulmonology Progress Note ---
Assessment/Plan Problems: (1) Hip fracture, right (2) Protein-calorie malnutrition, severe (3) Advanced dementia Assessment/Plan for surgery today heart rate controlled symptomatic treatment check electrolytes dvt prophylaxis pain management. Subjective ROS Limited/Unobtainable: No Constitutional: Reports: no symptoms HEENT: Repors: no symptoms Respiratory: Reports: no symptoms Allergies: Coded Allergies: PENICILLINS (Verified Allergy, Unknown, 01/30/16) Uncoded Allergies: PENICLLINS (Allergy, Unknown, 10/19/18) Objective Last 24 Hour Vital Signs Date Time Temp Pulse Resp B/P (MAP) Pulse Ox O2 Delivery O2 Flow Rate FiO2 11/28/18 14:44 111 18 100 11/28/18 14:42 112 16 100 11/28/18 12:00 97.5 89 19 156/82 (106) 98 11/28/18 09:00 Room Air 11/28/18 08:39 96 11/28/18 07:40 97.4 101 21 156/87 98 Room Air 11/28/18 07:35 101 22 173/89 100 Simple Mask 6 11/28/18 07:30 103 21 177/88 100 Simple Mask 6 11/28/18 07:25 101 20 170/89 100 Simple Mask 6 11/28/18 07:20 97.4 100 20 182/90 100 Simple Mask 6 11/28/18 04:00 98.4 77 18 151/68 (95) 98 11/28/18 00:00 98.8 73 18 137/59 (85) 96 11/27/18 21:00 Room Air 11/27/18 20:00 99.4 73 18 136/72 (93) 97 11/27/18 16:00 97.8 78 19 133/59 (83) 97 Intake and Output 11/27/18 11/28/18 19:00 07:00 Intake Total 290 ml 600 ml Balance 290 ml 600 ml Intake Oral 240 ml 50 ml IV Total 50 ml 550 ml # Voids 3 2 General Appearance: WD/WN HEENT: normocephalic, atraumatic Respiratory/Chest: chest wall non-tender, lungs clear Cardiovascular: normal peripheral pulses, normal rate Abdomen: normal bowel sounds, soft, non tender Genitourinary: normal external genitalia Extremities: no clubbing Neurologic/Psychiatric: portable pinch riveter II-XII grossly normal Microbiology Date/Time Source Procedure Growth Status 11/26/18 17:00 Nasal Nares MRSA Culture - Final NO METHICILLIN RESISTANT STAPH AUREUS... Complete 11/26/18 17:00 Rectum VRE Culture - Final NO VANCOMYCIN RESISTANT ENTEROCOCCUS ... Complete Laboratory Tests 11/28/18 05:25: White Blood Count 8.2, Red Blood Count 4.64L, Hemoglobin 11.1L, Hematocrit 35.4L , Mean Corpuscular Volume 76L, Mean Corpuscular Hemoglobin 24.0L, Mean Corpuscular Hemoglobin Concent 31.4L, Red Cell Distribution Width 13.4, Platelet Count 167, Mean Platelet Volume 9.9, Neutrophils (%) (Auto) 63.9, Lymphocytes (%) (Auto) 21.2, Monocytes (%) (Auto) 10.0, Eosinophils (%) (Auto) 3.7H, Basophils (%) (Auto) 1.2, Sodium Level 139, Potassium Level 4.1, Chloride Level 102, Carbon Dioxide Level 28, Anion Gap 9, Blood Urea Nitrogen 17, Creatinine 1.2, Estimat Glomerular Filtration Rate , Glucose Level 102, Calcium Level 9.0 Current Medications Medications (Trade) Dose Ordered Sig/Lea Route PRN Reason Start Time Stop Time Status Last Admin Dose Admin Acetaminophen (Tylenol) 650 mg Q4H PRN ORAL Mild Pain (Pain Scale 1-3) 11/28/18 09:32 12/28/18 09:31 Acetaminophen (Tylenol) 650 mg Q4H PRN ORAL temp>100 11/28/18 09:32 12/28/18 09:31 Acetaminophen/ Hydrocodone Bitart ([place] 5/325) 1 tab Q1H PRN ORAL Mild Pain (Pain Scale 1-3) 11/28/18 13:45 11/28/18 20:00 Acetaminophen/ Hydrocodone Bitart ([place] 7.5/325) 1 tab Q1H PRN ORAL Moderate Pain (Pain Scale 4-6) 11/28/18 13:45 11/28/18 20:00 Acetaminophen/ Hydrocodone Bitart ([place] 7.5/325) 1 tab Q4H PRN ORAL Moderate Pain (Pain Scale 4-6) 11/28/18 09:33 12/05/18 09:32 Al Hydroxide/Mg Hydroxide (Mylanta II) 30 ml Q6H PRN ORAL dyspepsia 11/28/18 10:30 12/26/18 16:29 Al Hydroxide/Mg Hydroxide (Mylanta) 15 ml Q1H PRN ORAL gi upset 11/28/18 13:45 11/28/18 20:00 Amlodipine Besylate (Norvasc) 5 mg DAILY ORAL 11/29/18 09:00 12/27/18 08:59 Atropine Sulfate (Atropine 0.4mg/ ml) 0.5 mg Q5M PRN IVP HR<40 11/28/18 13:45 11/28/18 20:00 Bisacodyl (Dulcolax) 10 mg Q12H PRN RECTAL Constipation 11/28/18 09:32 12/28/18 09:31 Citalopram Hydrobromide (celeXA) 30 mg DAILY ORAL 11/29/18 09:00 12/27/18 08:59 Clindamycin HCl/ Dextrose 50 ml @ 50 mls/hr EVERY 6 HOURS IV 11/28/18 12:00 11/29/18 06:59 11/28/18 12:46 Dextrose (Dextrose 50%) 25 ml Q30M PRN IV Hypoglycemia 11/28/18 09:30 12/26/18 16:29 Dextrose (Dextrose 50%) 50 ml Q30M PRN IV Hypoglycemia 11/28/18 09:30 12/26/18 16:29 Dextrose/ Electrolytes 1,000 ml @ 75 mls/hr [id number] IV 11/28/18 10:00 12/28/18 09:59 11/28/18 12:46 Diphenhydramine HCl (Benadryl) 25 mg Q15M PRN IVP Itching 11/28/18 13:45 11/28/18 20:00 Docusate Sodium (Colace) 100 mg THREE TIMES A DAY ORAL 11/28/18 13:00 12/28/18 08:59 Enoxaparin Sodium (Lovenox) 40 mg DAILY SUBQ 11/29/18 09:00 12/08/18 08:59 Fentanyl Citrate (Sublimaze 100 mcg/2 mL) 25 mcg Q10M PRN IV Moderate Pain (Pain Scale 4-6) 11/28/18 13:45 11/28/18 20:00 Ferrous Sulfate (Feosol) 325 mg THREE TIMES A DAY ORAL 11/28/18 13:00 12/28/18 08:59 Hydralazine HCl (Apresoline) 5 mg Q30M PRN IV SBP>160 / DBP>90 11/28/18 13:45 11/28/18 20:00 Hydromorphone HCl (Dilaudid) 0.5 mg Q15M PRN IVP Severe Pain (Pain Scale 7-10) 11/28/18 13:45 11/28/18 20:00 Hydromorphone HCl (Dilaudid) 1 mg Q4H PRN SUBQ severe pain 11/28/18 09:33 12/05/18 09:32 Labetalol HCl (Normodyne) 5 mg Q10M PRN IV SBP>160 / DBP>90 11/28/18 13:45 11/28/18 20:00 Lactated Ringer's 1,000 ml @ 10 mls/hr Q24H IVLG 11/28/18 13:42 11/28/18 20:00 Lorazepam (Ativan 2mg/ml 1ml) 0.5 mg Q4H PRN IV For Anxiety 11/28/18 09:33 12/05/18 09:32 Lorazepam (Ativan 2mg/ml 1ml) 1 mg Q15M PRN IV For Anxiety 11/28/18 13:45 11/28/18 20:00 Memantine (Namenda) 5 mg BID ORAL 11/28/18 18:00 12/26/18 17:59 Midazolam HCl (Versed 2mg/2ml vial) 1 mg Q15M PRN IVP For Anxiety 11/28/18 13:45 11/28/18 20:00 Ondansetron HCl (Zofran) 4 mg Q6H PRN IVP Nausea & Vomiting 11/28/18 09:33 12/28/18 09:32 Oxycodone/ Acetaminophen (Percocet 5-325) 1 tab Q1H PRN ORAL Severe Pain (Pain Scale 7-10) 11/28/18 13:45 11/28/18 20:00 Polyethylene Glycol (Miralax) 17 gm HSPRN PRN ORAL Constipation 11/28/18 09:34 12/28/18 09:33 Quetiapine Fumarate (SEROquel) 50 mg DAILY ORAL 11/29/18 09:00 12/27/18 08:59 Zolpidem Tartrate (Ambien) 5 mg HSPRN PRN ORAL Insomnia 11/28/18 16:30 12/03/18 16:29 Linda Prater MD Nov 28, 2018 14:49
--- NOTE | 2018-11-28 16:00 | NUR ---
NURSE NOTES: Patient returned to tele unit from surgery. Received report from CHRISTOPHE Corcoran. VS HR 101, 100% on 3L via NC, 160/79, denies pain at this time. Endorsed 600ml fluid given, 75ml expected blood loss, d/c aldana catheter, spinal anesthetic given during surgery. Patient alert x2, open eyes spontaneously, and verbal stimulus. Endorsed patient will not able to move lower extremities for 4-6 hours due to anesthetic effect, will able to take shower post op 3 days, and MD will change dressing for surgery site on 12/01/18. Bed in lowest position, side rails upx2, call light within reach.
--- NOTE | 2018-11-28 16:22 | Diagnostic Imaging Report ---
Indication: pain Pelvic trauma and pain Findings: Single AP view of the pelvis was performed. Right bipolar hemiarthroplasty demonstrated. No fracture or malalignment seen on the immediate postop image. Air over the right hip noted. IMPRESSION: Status post right hip replacement
[2018-11-28] MEDS ORDERED: Zolpidem 5mg tab ORAL PRN (16:30)
[2018-11-28] MEDS: Memantine 5 MG TAB ORAL SCH (18:37)
--- NOTE | 2018-11-28 20:05 | NUR ---
HAND-OFF: Report given to CHRISTOPHE Gonsales.
--- NOTE | 2018-11-28 20:06 | NUR ---
NURSE NOTES: Received report from CHRISTOPHE Fang. Pt is awake and resting in bed. In no acute distress. Bed in lowest position, call light within reach. Will continue plan of care.
--- NOTE | 2018-11-28 21:50 | Cardiology Report ---
APPROVED REPORT EKG Measurement Heart [id number] Normal sinus rhythm Normal ECG
--- NOTE | 2018-11-28 22:02 | Cardiology Report ---
APPROVED REPORT EKG Measurement Heart [id number] ID [id number] Normal sinus rhythm Inferior infarct, age undetermined Abnormal ECG
[2018-11-29] VITALS (7 sets, daily range): BP systolic 123–157; BP diastolic 62–77
--- NOTE | 2018-11-29 | Operative Note - Dictated ---
DATE OF OPERATION: 11/28/2018 PREOPERATIVE DIAGNOSIS: Right hip subcapital femoral neck fracture with displacement. POSTOPERATIVE DIAGNOSIS: Right hip subcapital femoral neck fracture with displacement. PROCEDURE: Right hip hemiarthroplasty using a Larry Accolate system, size 6 accolade 127 degree neck angle stem, size 28 mm head with a 49 mm bipolar component noncemented. SURGEON: Billy Torres M.D. BATTERY PLATE ASSEMBLER: Deedee Mcdaniel PA-C. ANESTHESIOLOGIST: Pool Peck M.D. ANESTHESIA: Spinal anesthesia. ESTIMATED BLOOD LOSS: Less than 20 mL. COMPLICATIONS: None. BRIEF HISTORY: The patient is a very pleasant 83-year-old gentleman who comes to me in consultation regarding his right hip. He apparently had a mechanical fall and was seen in [place] [facility] and x-ray showed a subcapital femoral neck fracture. He was admitted for definitive care. After full discussion of risks and benefits of surgery and complications associated with it including infection, bleeding, neurovascular complication, possibility of femur fracture, possibility of leg length discrepancy, DVT, PE, continued pain, stiffness, dislocation, and other complications that may arise, he opted for surgical treatment as described above. OPERATIVE PROCEDURE: The patient was brought to the operating room table and was placed supine. All pressure points were well padded. Spinal anesthesia was induced. The patient was placed in the left lateral decubitus position with the right hip up. The patient was stabilized using pegboard. All pressure points were well padded. At this point, the right hip was prepped and draped in usual sterile fashion. A time-out was performed and tranexamic acid and preop antibiotics were given. The standard posterolateral incision to the hip was undertaken and the incision was taken through the subcutaneous tissue. The fascia was opened and the Charnley retractor was placed in. Short external rotators were then released and piriformis was released and capsule was T'd and tagged for later repair. At this point, the fracture could be visualized. The femoral head was then removed using a corkscrew device. This was done without any complication. The head measured approximately 49. At this point, a standard neck cut was performed approximately a centimeter above the lesser trochanter. At this point, the acetabulum was examined and there was no acetabular deficiencies or significant arthritis. Therefore, care was given to the femur. At this point, the retractors were placed in the antrum. Using a box builder, the entry point was lateralized. A canal finder was placed in and sequential broaching was performed from [address] up to size 6. Size 6 provided excellent axial rotation and stability. Once this was completed, wounds were thoroughly irrigated. Trialing was performed with size 6 stem, 127 degree angle neck, and 49 mm bipolar component with a 28 mm head. The entire construct was reduced. The leg lengths were checked and appeared to be perfect. There was no leg-length discrepancy. The range of motion with flexion extension was checked and appeared to be perfect. Stability was checked with 0, 30 degrees, 45 degrees, and 90 degrees of flexion in neutral abduction all the way up to about 70 to 75 degree internal rotation, which were stable. At this point, all wounds were thoroughly irrigated using copious amount of fluid. The trial components were removed and the intramedullary canal and the femur was irrigated using copious amount of fluid. At this point, size 6 Accolate femoral component with 127 degree neck was malleted in without any complication. This provided excellent axial rotational stability. At this point, a 28 mm head and 49 mm bipolar components were assembled and Malik taper was dried and they were locked in together and multiple mallet strikes were used to get good fixation. The Malik taper stability was checked and rechecked and the femoral head was stable. At this point, the entire construct was reduced. Range of motion as well as leg length and stability was checked and appeared to be perfect as described previously. At this point, the capsule was closed using #2 FiberWire suture through drill hole in the greater trochanter. The wounds were thoroughly irrigated again and the tensor fascia was closed using #1 Vicryl suture. Subcutaneous tissue was closed using 2-0 Vicryl suture and skin was closed using 3-0 Monocryl suture. All lap counts and instrument counts were correct. Dermabond was applied and sterile dressing was applied. The patient was taken to recovery room in stable condition. Billy Torres M.D. DR: DESTINY JOB#: [id number] CC:
[2018-11-29] MEDS: Clindamycin 600mg 50 ML IV SCH ×2 (00:05→05:55)
--- NOTE | 2018-11-29 01:45 | Consultation ---
DATE OF CONSULTATION: 11/28/2018 PSYCHIATRIC CONSULTATION CONSULTING PHYSICIAN: Ashley Flood M.D. HISTORY OF PRESENT ILLNESS: This is an 83-year-old male patient who came to the hospital. He is status post right hip fracture. This patient does have an overlying diagnosis of major depressive disorder, severe, recurrent. daily psychiatric consultation requested for the patient to be seen by Psychiatry. The patient mostly he has some depression he is transferred to [facility], but he does endorse depression and anxiety as a result of fall and also some mood lability as well. MEDICAL HISTORY: He has a history of hypertension, acute tubular necrosis, and malnutrition. ALLERGIES: Penicillin. SUBSTANCE ABUSE HISTORY: No history of any drug or alcohol use. DEVELOPMENTAL HISTORY: Developmental problems, denies. FAMILY PSYCHIATRIC HISTORY: Denies. SOCIAL HISTORY: The patient lives in [facility], financially supported by [employer] and Medicare. PSYCHIATRIC HISTORY: History of major depression with psychotic features, rule out dementia with psychosis. CURRENT STRENGTH: He is motivated to get better and has a place to live. WEAKNESSES: He is impulsive. He has minimal support system. MENTAL STATUS EXAMINATION: The patient is an 83-year-old male. His appearance is disheveled. His attitude is irritable and agitated. Affect, guarded and restricted. Intellect, poor because he does not know current . Mood, depressed and anxious. Motor activity, psychomotor agitation. Attention span is poor. He began serial 7s, spell world backwards. Orientation x2. He is oriented to the person and place, not to time and situation. Speech is low volume and slurred. Thought process, disorganized and illogical. Thought content, he has auditory hallucinations and some paranoia. Insight and judgment, poor. Perception is poor. auditory hallucinations. Abstract reasoning is poor because he does not understand proverb and he has concrete thinking. Memory 3/3 word recall after 5 minutes delay with good short-term memory. Long-term memory is intact based on his knowledge of long-term events such as high school that he went to. His gait is normal with normal movement. DIAGNOSES: 1. Major depressive disorder, mild, recurrent with psychotic features. 2. Medical, hypertension, dementia, acute tubular necrosis, malnutrition. 3. Psychosocial stressors, financial. 4. Social impairment is moderate. PLAN: I am going to treat him with a psychotropic medication regimen consisting of Namenda 5 mg twice a day, Seroquel 50 mg daily, Celexa increased to 30 mg daily, and Ativan 0.5 mg every 4 hours p.r.n. anxiety and agitation. Provide him with . Provide him with 20 minutes of cognitive behavioral therapy to help him identify automatic negative thoughts and help him convert those negative thoughts to more positive thoughts to reduce depression, anxiety, and suicidality. Ashley Flood M.D. DR: CARMEN JOB#: [id number] CC:
--- NOTE | 2018-11-29 02:15 | Consultation ---
DATE OF CONSULTATION: 11/28/2018 CARDIOLOGY CONSULTATION CONSULTING PHYSICIAN: Mitch Irwin M.D. REFERRING PHYSICIAN: Mina Garcia D.O. REASON FOR CONSULTATION: Management of hypertension, coronary artery disease, and preoperative clearance prior to femur fracture surgery. HISTORY OF PRESENT ILLNESS: The patient is an 83-year-old gentleman with history of hypertension, coronary artery disease with prior myocardial infarction as well as atrial fibrillation, dementia, was brought in by paramedics from long term after a fall, complaining of hip pain. CT of the pelvis showed a femur neck fracture, was admitted for further workup. At the time of my evaluation, the patient denies any chest pain or palpitation or shortness of breath. REVIEW OF SYSTEMS: Review of systems was negative other than what was mentioned in history of present illness. PAST MEDICAL HISTORY: As mentioned above. ALLERGIES: He is allergic to penicillin. FAMILY HISTORY: Noncontributory. SOCIAL HISTORY: He is a long term resident. Does not smoke or drink alcohol. PHYSICAL EXAMINATION: VITAL SIGNS: Blood pressure was as high as 182/90 , pulse is 100, respiration is 18, and temperature 97.4. HEAD AND NECK: No JVD. LUNGS: Coarse rhonchi CARDIOVASCULAR: Irregularly irregular. S1 and S2 with no gallop or murmur. ABDOMEN: Soft. EXTREMITIES: No pitting edema. LABORATORY AND DIAGNOSTIC DATA: His labs, white count of 8.2, hemoglobin 11.5, hematocrit 35.5, and platelet count is 167,000. Sodium 139, potassium 4.1, BUN of 17, creatinine of 1.2. His echocardiogram showed normal left ventricular systolic function with ejection fraction of 55%. His INR is 1. It is of note that a month ago, the patient had slight troponin elevation, but EKG had showed no acute ischemia. The patient had refused cardiac catheterization in the past. ASSESSMENT AND PLAN: 1. Hypertension. Blood pressure is in 160s. Started the patient on metoprolol 25 mg b.i.d. The patient was on amlodipine 5 mg daily. This help prevent postop atrial fibrillation as well. 2. History of paroxysmal atrial fibrillation. The patient was in sinus rhythm on previous admission, off anticoagulation. 3. Troponin leak. The patient currently denies any chest pain. Echocardiogram showed normal left ventricular systolic function. The patient had refused cardiac catheterization last visit notes. 4. History of GI bleeding. 5. History of dementia. 6. Status post fall and hip fracture. The patient does not have any chest pain. Echocardiogram showed normal left ventricular systolic function. We will get a 12-lead EKG. If the EKG is nonischemic, it is okay to proceed with hip surgery. It is of note that the patient catheterization in the past and there is no point in doing . The patient is refusing cardiac catheterization. Thank you very much, Dr. Garcia, for allowing me to participate in the care of this patient. Please do not hesitate to contact me for any questions regarding my evaluation. Mitch Irwin M.D. DR: ZOILA JOB#: [id number] CC:
--- NOTE | 2018-11-29 07:43 | NUR ---
HAND-OFF: Report given to CHRISTOPHE Becker.
--- NOTE | 2018-11-29 07:47 | NUR ---
NURSE NOTES: Received report from Dru/RN, Patient is awake, No distress/SOB noted at this time. Bed in low position, Call light within reach. Will continue plan of care.
[2018-11-29 08:17] LABS: BASOPHILS % (AUTO) 1.1 % (0.0-2.0); EOSINOPHILS % (AUTO) 0.1 % (0.0-3.0); HEMATOCRIT 31.4 % (42.0-52.0); HEMOGLOBIN 9.9 G/DL (14.2-18.0); LYMPHOCYTES % (AUTO) 7.9 % (20.0-45.0); MEAN CORPUSCULAR VOLUME 77 FL (80-99); MONOCYTES % (AUTO) 11.2 % (1.0-10.0); NEUTROPHILS % (AUTO) 79.7 % (45.0-75.0); PLATELET COUNT 171 K/UL (150-450); RED BLOOD COUNT 4.09 M/UL (4.70-6.10); RED CELL DISTRIBUTION WIDTH 13.4 % (11.6-14.8); WHITE BLOOD COUNT 11.8 K/UL (4.8-10.8)
[2018-11-29 08:36] LABS: ANION GAP 7 mmol/L (5-15); BLOOD UREA NITROGEN 18 mg/dL (7-18); CALCIUM 8.9 MG/DL (8.5-10.1); CARBON DIOXIDE 29 MMOL/L (21-32); CHLORIDE 102 MMOL/L (98-107); CREATININE 1.1 MG/DL (0.55-1.30); POTASSIUM 4.1 MMOL/L (3.5-5.1); SODIUM 138 MMOL/L (136-145)
[2018-11-29] MEDS: Memantine 5 MG TAB ORAL SCH ×3 (08:36→23:31)
[2018-11-29] MEDS: Docusate 100mg cap ORAL SCH ×4 (08:37→23:31)
[2018-11-29] MEDS ORDERED: D5 1/2NS 1000ml IV ONE (08:50)
[2018-11-29] MEDS ORDERED: Enoxaparin 40mg Inj SUBQ SCH (09:00)
[2018-11-29] MEDS ORDERED: Citalopram Hydrobromide 10mg Tab ORAL SCH (09:00)
--- NOTE | 2018-11-29 09:10 | General Progress Note ---
Assessment/Plan Problem List: (1) ATN (acute tubular necrosis) ICD Codes: N17.0 - Acute kidney failure with tubular necrosis SNOMED: 33951025 (2) Hip fracture, right ICD Codes: S72.001A - Fracture of unspecified part of neck of right femur, initial encounter for closed fracture SNOMED: 300628618 Qualifiers: Qualified Codes: S72.001A - Fracture of unspecified part of neck of right femur, initial encounter for closed fracture (3) Protein-calorie malnutrition, severe ICD Codes: E43 - Unspecified severe protein-calorie malnutrition SNOMED: 687613968, 670791069, 553193686 (4) Advanced dementia ICD Codes: F03.90 - Unspecified dementia without behavioral disturbance SNOMED: 57987781 Status: stable, progressing Assessment/Plan: pt diet pain control cbc bmp am aru eval Subjective Constitutional: Reports: weakness Allergies: Coded Allergies: PENICILLINS (Verified Allergy, Unknown, 01/30/16) Uncoded Allergies: PENICLLINS (Allergy, Unknown, 10/19/18) All Systems: reviewed and negative except above Subjective o2nc calm in bed Objective Last 24 Hour Vital Signs Date Time Temp Pulse Resp B/P (MAP) Pulse Ox O2 Delivery O2 Flow Rate FiO2 11/29/18 08:37 81 138/62 11/29/18 08:00 97.2 81 19 138/62 (87) 95 11/29/18 04:00 97.6 94 18 148/72 (97) 98 11/29/18 04:00 94 11/29/18 00:00 94 11/29/18 00:00 97.7 94 18 123/64 (83) 96 11/28/18 21:00 Room Air 11/28/18 20:00 110 11/28/18 20:00 97.5 110 19 148/77 (100) 96 11/28/18 15:55 98.0 89 24 169/65 100 Nasal Cannula 3 11/28/18 15:45 98.0 98 15 162/79 100 Nasal Cannula 3 11/28/18 15:30 104 14 154/68 100 Simple Mask 6 11/28/18 15:20 115 18 142/73 100 Simple Mask 6 11/28/18 15:05 112 19 128/68 100 Simple Mask 6 11/28/18 14:54 111 15 145/85 100 Simple Mask 6 11/28/18 14:49 98.0 120 16 150/77 100 Simple Mask 6 11/28/18 14:44 98.0 104 16 121/61 100 Simple Mask 6 11/28/18 14:44 111 18 100 11/28/18 14:42 112 16 100 11/28/18 12:46 83 11/28/18 12:00 97.5 89 19 156/82 (106) 98 Intake and Output 11/28/18 11/29/18 19:00 07:00 Intake Total 800 ml Output Total 75 ml 750 ml Balance 725 ml -750 ml IV Total 800 ml Output Urine Total 750 ml Estimated Blood Loss 75 ml # Voids 2 Laboratory Tests 11/29/18 07:20: White Blood Count 11.8H, Red Blood Count 4.09L, Hemoglobin 9.9L, Hematocrit 31.4L, Mean Corpuscular Volume 77L, Mean Corpuscular Hemoglobin 24.1L, Mean Corpuscular Hemoglobin Concent 31.4L, Red Cell Distribution Width 13.4, Platelet Count 171, Mean Platelet Volume 9.2, Neutrophils (%) (Auto) 79.7H, Lymphocytes (%) (Auto) 7.9L, Monocytes (%) (Auto) 11.2H, Eosinophils (%) (Auto) 0.1, Basophils (%) (Auto) 1.1, Sodium Level 138, Potassium Level 4.1, Chloride Level 102, Carbon Dioxide Level 29, Anion Gap 7, Blood Urea Nitrogen 18, Creatinine 1.1, Estimat Glomerular Filtration Rate , Glucose Level 115H, Calcium Level 8.9 Height (Feet): 5 Height (Inches): 9.00 Weight (Pounds): 169 General Appearance: lethargic EENT: normal ENT inspection Neck: normal alignment Cardiovascular: normal peripheral pulses, normal rate, regular rhythm Respiratory/Chest: chest wall non-tender, lungs clear, normal breath sounds Abdomen: normal bowel sounds, non tender, soft Extremities: normal inspection Edema: no edema noted Arm (L), no edema noted Arm (R), no edema noted Leg (L), no edema noted Leg (R), no edema noted Pedal (L), no edema noted Pedal (R), no edema noted Generalized Neurologic: responsive, motor weakness Skin: normal pigmentation, warm/dry Mina Garcia DO Nov 29, 2018 09:10
[2018-11-29] MEDS ORDERED: NS 275ml ONE (09:58)
--- NOTE | 2018-11-29 09:58 | Pulmonology Progress Note ---
Assessment/Plan Problems: (1) Hip fracture, right (2) Protein-calorie malnutrition, severe (3) Advanced dementia (4) ATN (acute tubular necrosis) Assessment/Plan tolerated surgery very well heart rate controlled symptomatic treatment check electrolytes dvt prophylaxis pain management. med/surg Subjective ROS Limited/Unobtainable: No Constitutional: Reports: no symptoms HEENT: Repors: no symptoms Respiratory: Reports: no symptoms Allergies: Coded Allergies: PENICILLINS (Verified Allergy, Unknown, 01/30/16) Uncoded Allergies: PENICLLINS (Allergy, Unknown, 10/19/18) Objective Last 24 Hour Vital Signs Date Time Temp Pulse Resp B/P (MAP) Pulse Ox O2 Delivery O2 Flow Rate FiO2 11/29/18 08:37 81 138/62 11/29/18 08:00 97.2 81 19 138/62 (87) 95 11/29/18 04:00 97.6 94 18 148/72 (97) 98 11/29/18 04:00 94 11/29/18 00:00 94 11/29/18 00:00 97.7 94 18 123/64 (83) 96 11/28/18 21:00 Room Air 11/28/18 20:00 110 11/28/18 20:00 97.5 110 19 148/77 (100) 96 11/28/18 15:55 98.0 89 24 169/65 100 Nasal Cannula 3 11/28/18 15:45 98.0 98 15 162/79 100 Nasal Cannula 3 11/28/18 15:30 104 14 154/68 100 Simple Mask 6 11/28/18 15:20 115 18 142/73 100 Simple Mask 6 11/28/18 15:05 112 19 128/68 100 Simple Mask 6 11/28/18 14:54 111 15 145/85 100 Simple Mask 6 11/28/18 14:49 98.0 120 16 150/77 100 Simple Mask 6 11/28/18 14:44 98.0 104 16 121/61 100 Simple Mask 6 11/28/18 14:44 111 18 100 11/28/18 14:42 112 16 100 11/28/18 12:46 83 11/28/18 12:00 97.5 89 19 156/82 (106) 98 Intake and Output 11/28/18 11/29/18 19:00 07:00 Intake Total 800 ml Output Total 75 ml 750 ml Balance 725 ml -750 ml IV Total 800 ml Output Urine Total 750 ml Estimated Blood Loss 75 ml # Voids 2 Objective General Appearance: WD/WN HEENT: normocephalic, atraumatic Respiratory/Chest: chest wall non-tender, crackles/rales Cardiovascular: normal peripheral pulses, arrhythmia Abdomen: normal bowel sounds, soft, non tender Genitourinary: normal external genitalia Extremities: no clubbing Skin: no rash, no ulcers 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 Complete 11/26/18 17:00 Rectum - Final NO CARBAPENEM-RESISTANT ENTEROBACTERI... Complete 11/26/18 17:00 Rectum VRE Culture - Final NO VANCOMYCIN RESISTANT ENTEROCOCCUS ... Complete Laboratory Tests 11/29/18 07:20: White Blood Count 11.8H, Red Blood Count 4.09L, Hemoglobin 9.9L, Hematocrit 31.4L, Mean Corpuscular Volume 77L, Mean Corpuscular Hemoglobin 24.1L, Mean Corpuscular Hemoglobin Concent 31.4L, Red Cell Distribution Width 13.4, Platelet Count 171, Mean Platelet Volume 9.2, Neutrophils (%) (Auto) 79.7H, Lymphocytes (%) (Auto) 7.9L, Monocytes (%) (Auto) 11.2H, Eosinophils (%) (Auto) 0.1, Basophils (%) (Auto) 1.1, Sodium Level 138, Potassium Level 4.1, Chloride Level 102, Carbon Dioxide Level 29, Anion Gap 7, Blood Urea Nitrogen 18, Creatinine 1.1, Estimat Glomerular Filtration Rate , Glucose Level 115H, Calcium Level 8.9 Current Medications Medications (Trade) Dose Ordered Sig/Lea Route PRN Reason Start Time Stop Time Status Last Admin Dose Admin Acetaminophen (Tylenol) 650 mg Q4H PRN ORAL Mild Pain (Pain Scale 1-3) 11/28/18 09:32 12/28/18 09:31 Acetaminophen (Tylenol) 650 mg Q4H PRN ORAL temp>100 11/28/18 09:32 12/28/18 09:31 Acetaminophen/ Hydrocodone Bitart ([place] 7.5/325) 1 tab Q4H PRN ORAL Moderate Pain (Pain Scale 4-6) 11/28/18 09:33 12/05/18 09:32 Al Hydroxide/Mg Hydroxide (Mylanta II) 30 ml Q6H PRN ORAL dyspepsia 11/28/18 10:30 12/26/18 16:29 Amlodipine Besylate (Norvasc) 5 mg DAILY ORAL 11/29/18 09:00 12/27/18 08:59 11/29/18 08:37 Bisacodyl (Dulcolax) 10 mg Q12H PRN RECTAL Constipation 11/28/18 09:32 12/28/18 09:31 Citalopram Hydrobromide (celeXA) 30 mg DAILY ORAL 11/29/18 09:00 12/27/18 08:59 11/29/18 08:37 Dextrose (Dextrose 50%) 25 ml Q30M PRN IV Hypoglycemia 11/28/18 09:30 12/26/18 16:29 Dextrose (Dextrose 50%) 50 ml Q30M PRN IV Hypoglycemia 11/28/18 09:30 12/26/18 16:29 Dextrose/ Electrolytes 1,000 ml @ 75 mls/hr [id number] IV 11/28/18 10:00 12/28/18 09:59 11/28/18 12:46 Docusate Sodium (Colace) 100 mg THREE TIMES A DAY ORAL 11/28/18 13:00 12/28/18 08:59 11/29/18 08:37 Enoxaparin Sodium (Lovenox) 40 mg DAILY SUBQ 11/29/18 09:00 12/08/18 08:59 11/29/18 08:41 Ferrous Sulfate (Feosol) 325 mg THREE TIMES A DAY ORAL 11/28/18 13:00 12/28/18 08:59 11/29/18 08:36 Hydromorphone HCl (Dilaudid) 1 mg Q4H PRN SUBQ severe pain 11/28/18 09:33 12/05/18 09:32 Lorazepam (Ativan 2mg/ml 1ml) 0.5 mg Q4H PRN IV For Anxiety 11/28/18 09:33 12/05/18 09:32 Memantine (Namenda) 5 mg BID ORAL 11/28/18 18:00 12/26/18 17:59 11/29/18 08:36 Ondansetron HCl (Zofran) 4 mg Q6H PRN IVP Nausea & Vomiting 11/28/18 09:33 12/28/18 09:32 Polyethylene Glycol (Miralax) 17 gm HSPRN PRN ORAL Constipation 11/28/18 09:34 12/28/18 09:33 Quetiapine Fumarate (SEROquel) 50 mg DAILY ORAL 11/29/18 09:00 12/27/18 08:59 11/29/18 08:37 Zolpidem Tartrate (Ambien) 5 mg HSPRN PRN ORAL Insomnia 11/28/18 16:30 12/03/18 16:29 Linda Prater MD Nov 29, 2018 09:58
--- NOTE | 2018-11-29 10:45 | Progress Note ---
DATE: 11/29/2018 SUBJECTIVE: The patient is an 83-year-old male patient with right hip fracture. This patient continues to have some as well. The patient continues to have some confusion, disorganized thought process, and decline in cognition below his baseline, but overall the patient still has to manage some amount of anxiety, depression, and altered mental status. That is why, his attending has requested daily psychiatric consultation. MENTAL STATUS EXAMINATION: This is an 83-year-old male. Appearance is disheveled. Attitude irritable and agitated. Affect, guarded and restricted. Intellect poor. Mood depressed and anxious. Motor activity, psychomotor agitation. Attention span is poor. Orientation x2. Speech is pressured. Thought process, disorganized and illogical. Thought content, auditory hallucinations and paranoid delusions. Insight and judgment is poor. DIAGNOSIS: Major depressive disorder, severe, recurrent with psychotic features, rule out dementia with psychosis. PLAN: Treat him with Celexa 30 mg daily, Seroquel 50 mg twice daily, and Namenda 5 mg twice a day as well as Ativan 0.5 mg every four hours p.r.n. anxiety and agitation. Provide him with 20 minutes of reality-based supportive psychotherapy. Chart is reviewed and discussed with staff. Seen and assessed at bedside. Ashley Flood M.D. DR: TARIQ JOB#: [id number] CC:
[2018-11-29] MEDS: D5 1/2NS w/KCl 20mEq 1,000 ML IV SCH ×2 (12:51→18:45)
--- NOTE | 2018-11-29 13:30 | Cardiology Report ---
APPROVED REPORT EXAM: Two-dimensional and M-mode echocardiogram with Doppler and color Doppler. INDICATION PRE-OP M-Mode DIMENSIONS IVSd1.4 (0.7-1.1cm)Left Atrium (MM)3.6 (1.6-4.0cm) LVDd5.4 (3.5-5.6cm)Aortic Root3.4 (2.0-3.7cm) PWd0.9 (0.7-1.1cm)Aortic Cusp Exc.1.5 (1.5-2.0cm) IVSs1.6 cm LVDs3.8 (2.5-4.0cm) PWs1.2 cm Normal left ventricular chamber size, systolic function and wall motion. Left ventricular ejection fraction estimated to be 55%. No evidence of left ventricular hypertrophy. No evidence of pericardial effusion . All other cardiac chamber sizes are within normal limits. Focal aortic valve sclerosis with adequate cusp excursion. Thickened mitral valve leaflets with normal excursion. Moderate mitral annulus and aortic root calcification. Normal pulmonic valve structure. Normal tricuspid valve structure. IVC at normal size without physiologic collapse. A color flow and spectral Doppler study was performed and revealed: Trace aortic insufficiency . Mild mitral regurgitation. Mitral diastolic velocities suggest reduced left ventricular relaxation c/w mild LV diastolic dysfunction (Grade I ). Mild tricuspid regurgitation. Tricuspid systolic velocities suggests peak right ventricular systolic pressure of 45 mmHg,consistent with mild pulmonary hypertension .
--- NOTE | 2018-11-29 14:17 | Cardiac Electrophysiology PN ---
Assessment/Plan Assessment/Plan 1. Hypertension. Add metoprolol 25 mg b.i.d. The patient was on amlodipine 5 mg daily. 2. History of paroxysmal atrial fibrillation. The patient was in sinus rhythm on previous admission, off anticoagulation.On Metoprolol 3. Troponin leak. The patient currently denies any chest pain. Echocardiogram showed normal left ventricular systolic function. The patient had refused cardiac catheterization last visit notes. 4. History of GI bleeding. 5. History of dementia. 6. Status post fall and hip fracture. The patient does not have any chest pain. Echocardiogram showed normal left ventricular systolic function. Tolerated the ORIF well. Subjective Subjective S/P Right hip hemiarthroplasty. No CP or SOB. Objective Last 24 Hour Vital Signs Date Time Temp Pulse Resp B/P (MAP) Pulse Ox O2 Delivery O2 Flow Rate FiO2 11/29/18 12:00 98.1 84 18 157/64 (95) 97 11/29/18 09:00 Room Air 11/29/18 08:37 81 138/62 11/29/18 08:00 97.2 81 19 138/62 (87) 95 11/29/18 04:00 97.6 94 18 148/72 (97) 98 11/29/18 04:00 94 11/29/18 00:00 94 11/29/18 00:00 97.7 94 18 123/64 (83) 96 11/28/18 21:00 Room Air 11/28/18 20:00 110 11/28/18 20:00 97.5 110 19 148/77 (100) 96 11/28/18 15:55 98.0 89 24 169/65 100 Nasal Cannula 3 11/28/18 15:45 98.0 98 15 162/79 100 Nasal Cannula 3 11/28/18 15:30 104 14 154/68 100 Simple Mask 6 11/28/18 15:20 115 18 142/73 100 Simple Mask 6 11/28/18 15:05 112 19 128/68 100 Simple Mask 6 11/28/18 14:54 111 15 145/85 100 Simple Mask 6 11/28/18 14:49 98.0 120 16 150/77 100 Simple Mask 6 11/28/18 14:44 98.0 104 16 121/61 100 Simple Mask 6 11/28/18 14:44 111 18 100 11/28/18 14:42 112 16 100 Intake and Output 11/28/18 11/29/18 19:00 07:00 Intake Total 800 ml Output Total 75 ml 750 ml Balance 725 ml -750 ml IV Total 800 ml Output Urine Total 750 ml Estimated Blood Loss 75 ml # Voids 2 Laboratory Tests Test 11/29/18 07:20 White Blood Count 11.8 K/UL (4.8-10.8) H Red Blood Count 4.09 M/UL (4.70-6.10) L Hemoglobin 9.9 G/DL (14.2-18.0) L Hematocrit 31.4 % (42.0-52.0) L Mean Corpuscular Volume 77 FL (80-99) L Mean Corpuscular Hemoglobin 24.1 PG (27.0-31.0) L Mean Corpuscular Hemoglobin Concent 31.4 G/DL (32.0-36.0) L Red Cell Distribution Width 13.4 % (11.6-14.8) Platelet Count 171 K/UL (150-450) Mean Platelet Volume 9.2 FL (6.5-10.1) Neutrophils (%) (Auto) 79.7 % (45.0-75.0) H Lymphocytes (%) (Auto) 7.9 % (20.0-45.0) L Monocytes (%) (Auto) 11.2 % (1.0-10.0) H Eosinophils (%) (Auto) 0.1 % (0.0-3.0) Basophils (%) (Auto) 1.1 % (0.0-2.0) Sodium Level 138 MMOL/L (136-145) Potassium Level 4.1 MMOL/L (3.5-5.1) Chloride Level 102 MMOL/L (98-107) Carbon Dioxide Level 29 MMOL/L (21-32) Anion Gap 7 mmol/L (5-15) Blood Urea Nitrogen 18 mg/dL (7-18) Creatinine 1.1 MG/DL (0.55-1.30) Estimat Glomerular Filtration Rate mL/min (>60) Glucose Level 115 MG/DL (74-106) H Calcium Level 8.9 MG/DL (8.5-10.1) Microbiology Date/Time Source Procedure Growth Status 11/26/18 17:00 Nasal Nares MRSA Culture - Final NO METHICILLIN RESISTANT STAPH AUREUS... Complete 4/24/19 17:00 Rectum - Final NO CARBAPENEM-RESISTANT ENTEROBACTERI... Complete 11/26/18 17:00 Rectum VRE Culture - Final NO VANCOMYCIN RESISTANT ENTEROCOCCUS ... Complete Objective HEAD AND NECK: No JVD. LUNGS: Coarse rhonchi CARDIOVASCULAR: Irregularly irregular. S1 and S2 with no gallop or murmur. ABDOMEN: Soft. EXTREMITIES: No pitting edema.S/P Hip surgery Mitch Irwin MD Nov 29, 2018 14:17
--- NOTE | 2018-11-29 17:30 | Progress Note ---
DATE: 11/29/2018 ADDENDUM This is an 83-year-old male patient who . This is an addendum to again the progress note for November 29, the job number is [id number]. The patient did receive 20 minutes of cognitive behavioral therapy will help him identify automatic negative thoughts and help to convert those negative thoughts to more positive thinking to reduce depression, anxiety, and mood lability. Ashley Flood M.D. DR: TARIQ JOB#: [id number] CC:
--- NOTE | 2018-11-29 18:00 | NUR ---
NURSE NOTES: Patient received from Tele 211-1 transferred to 308-2. Patient arrived by bed on O2 2LNC. Vitals T99.6 P84 R18 BP 153/77 mmHg 100% on O2 2LNC. Patient alert, oriented x3, calm. Denies SOB, pain, NV. IVF infusing to RFA, site asymptomatic. Right hip dressing CDI, hip abducter pillow in place, CMS+, wiggles, skin warm, denies NT, no swelling, bilateral hand grasps 2-3/5, bilateral pedal pushes 1/5. Oriented patient room and surroundings, call light in reach, bed in lowest position, will continue to monitor.
--- NOTE | 2018-11-29 18:20 | NUR ---
NURSE NOTES: Patient transferred to [facility]. Heart monitor removed. Report given to Ashley/RN. Patient is in stable condition. IV intact running D5 1/2 NS with KCL 20 mEq @75 ml/hr. No sign of distress/SOB noted. Endorsed plan of care.
[2018-11-29] MEDS ORDERED: Mylanta II UD 30ml ORAL PRN (19:00)
[2018-11-29] MEDS ORDERED: LORazepam Inj 2mg/ml 1ml IV PRN (19:00)
--- NOTE | 2018-11-29 19:25 | NUR ---
HAND-OFF: Report given to Arnoldo SAEED.
--- NOTE | 2018-11-29 19:30 | NUR ---
NURSE NOTES: Pt lying in bed w/bed in lowest position and call light within reach. Pt A&Ox1; VSS; on 2L NC; and in no apparent distress at this time. IV site intact/asymptomatic w/IVF @ 75 ml/hr; and surgical dressing C/D/I w/abduction pillow in place. Attempted to reorient pt to room; pt has no needs or complaints at this time. Will continue to monitor.
[2018-11-29] MEDS: Metoprolol 25mg tab ORAL SCH (20:23)
[2018-11-29] MEDS ORDERED: Miralax 17gm pkt ORAL PRN (21:00)
[2018-11-29] MEDS ORDERED: Metoprolol 25mg tab ORAL SCH (21:00)
[2018-11-29] MEDS ORDERED: HYDROmorphone 1mg/ml Carpuject SUBQ PRN (21:45)
[2018-11-30] VITALS: BP 149/69
[2018-11-30] MEDS: D5 1/2NS w/KCl 20mEq 1,000 ML IV SCH ×2 (02:19→14:06)
[2018-11-30 04:00] VITALS: BP 164/72
[2018-11-30] MEDS: HYDROcodone/Acetamin 7.5/325 tab ORAL PRN ×2 (04:40→09:45)
--- NOTE | 2018-11-30 07:10 | NUR ---
NURSE NOTES: Report received from outgoing nurse, round made. Patient resting in semi-fowlers in position in bed. No SOB on RA, pain, NV. IVF infusing to RFA as ordered, site asymptomatic. Right hip dressing CDI, ice pack applied. Hip abductor pillow in place. Left SCD on. CMS+, denies NT, wiggles, skin warm, pedal pulses palpable, bilateral hand grasps equal 3/5, bilateral pedal pushes 2/5, right foot deviated inward. Call light in reach, bed in lowest position, will continue to monitor.
--- NOTE | 2018-11-30 07:16 | NUR ---
HAND-OFF: Report given to CHRISTOPHE Ramirez.
[2018-11-30 08:00] VITALS: BP 141/58
[2018-11-30 08:14] LABS: BASOPHILS % (AUTO) 2.2 % (0.0-2.0); EOSINOPHILS % (AUTO) 0.7 % (0.0-3.0); HEMATOCRIT 29.6 % (42.0-52.0); HEMOGLOBIN 9.3 G/DL (14.2-18.0); LYMPHOCYTES % (AUTO) 13.1 % (20.0-45.0); MEAN CORPUSCULAR VOLUME 76 FL (80-99); MONOCYTES % (AUTO) 11.9 % (1.0-10.0); NEUTROPHILS % (AUTO) 72.1 % (45.0-75.0); PLATELET COUNT 161 K/UL (150-450); RED BLOOD COUNT 3.87 M/UL (4.70-6.10); RED CELL DISTRIBUTION WIDTH 13.3 % (11.6-14.8); WHITE BLOOD COUNT 10.3 K/UL (4.8-10.8)
[2018-11-30 08:23] LABS: ANION GAP 4 mmol/L (5-15); BLOOD UREA NITROGEN 17 mg/dL (7-18); CALCIUM 8.8 MG/DL (8.5-10.1); CARBON DIOXIDE 30 MMOL/L (21-32); CHLORIDE 102 MMOL/L (98-107); POTASSIUM 4.1 MMOL/L (3.5-5.1); SODIUM 136 MMOL/L (136-145)
--- NOTE | 2018-11-30 09:26 | General Progress Note ---
Assessment/Plan Problem List: (1) ATN (acute tubular necrosis) ICD Codes: N17.0 - Acute kidney failure with tubular necrosis SNOMED: 54260681 (2) Hip fracture, right ICD Codes: S72.001A - Fracture of unspecified part of neck of right femur, initial encounter for closed fracture SNOMED: 223792744 Qualifiers: Qualified Codes: S72.001A - Fracture of unspecified part of neck of right femur, initial encounter for closed fracture (3) Protein-calorie malnutrition, severe ICD Codes: E43 - Unspecified severe protein-calorie malnutrition SNOMED: 314041671, 448828373, 354780814 (4) Advanced dementia ICD Codes: F03.90 - Unspecified dementia without behavioral disturbance SNOMED: 19731074 Status: stable, progressing Assessment/Plan: pt diet pain control cbc bmp am aru eval Subjective Constitutional: Reports: weakness Allergies: Coded Allergies: PENICILLINS (Verified Allergy, Unknown, 01/30/16) Uncoded Allergies: PENICLLINS (Allergy, Unknown, 10/19/18) All Systems: reviewed and negative except above Subjective calm in bed Objective Last 24 Hour Vital Signs Date Time Temp Pulse Resp B/P (MAP) Pulse Ox O2 Delivery O2 Flow Rate FiO2 11/30/18 04:00 99.2 75 18 164/72 (102) 98 11/30/18 00:00 98.4 65 18 149/69 (95) 100 11/29/18 21:00 Room Air 11/29/18 20:23 78 140/62 11/29/18 20:00 99.6 78 18 140/62 (88) 100 11/29/18 18:00 99.6 84 18 153/77 (102) 100 11/29/18 17:41 100.9 11/29/18 17:41 100.9 11/29/18 16:00 88 11/29/18 16:00 100.9 89 18 147/77 (100) 98 11/29/18 12:00 98.1 84 18 157/64 (95) 97 11/29/18 12:00 83 Intake and Output 11/29/18 11/30/18 19:00 07:00 Intake Total 1100 ml 675 ml Balance 1100 ml 675 ml Intake Oral 1100 ml 300 ml IV Total 375 ml # Voids 4 3 Laboratory Tests 11/30/18 07:37: White Blood Count 10.3, Red Blood Count 3.87L, Hemoglobin 9.3L, Hematocrit 29.6L , Mean Corpuscular Volume 76L, Mean Corpuscular Hemoglobin 24.1L, Mean Corpuscular Hemoglobin Concent 31.5L, Red Cell Distribution Width 13.3, Platelet Count 161, Mean Platelet Volume 7.4, Neutrophils (%) (Auto) 72.1, Lymphocytes (%) (Auto) 13.1L, Monocytes (%) (Auto) 11.9H, Eosinophils (%) (Auto ) 0.7, Basophils (%) (Auto) 2.2H, Sodium Level 136, Potassium Level 4.1, Chloride Level 102, Carbon Dioxide Level 30, Anion Gap 4L, Blood Urea Nitrogen 17, Creatinine 1.0, Estimat Glomerular Filtration Rate , Glucose Level 119H, Calcium Level 8.8 Height (Feet): 5 Height (Inches): 9.00 Weight (Pounds): 169 General Appearance: lethargic EENT: normal ENT inspection Neck: normal alignment Cardiovascular: normal peripheral pulses, normal rate, regular rhythm Respiratory/Chest: chest wall non-tender, lungs clear, normal breath sounds Abdomen: normal bowel sounds, non tender, soft Extremities: normal inspection Edema: no edema noted Arm (L), no edema noted Arm (R), no edema noted Leg (L), no edema noted Leg (R), no edema noted Pedal (L), no edema noted Pedal (R), no edema noted Generalized Neurologic: motor weakness Skin: normal pigmentation, warm/dry Mina Garcia DO Nov 30, 2018 09:26
[2018-11-30] MEDS: Enoxaparin 40mg Inj SUBQ SCH (09:43)
[2018-11-30] MEDS: Memantine 5 MG TAB ORAL SCH ×2 (09:48→20:15)
[2018-11-30] MEDS: Citalopram Hydrobromide 10mg Tab ORAL SCH (09:48)
[2018-11-30] MEDS: Docusate 100mg cap ORAL SCH ×3 (09:49→18:25)
[2018-11-30] MEDS: Metoprolol 25mg tab ORAL SCH ×2 (09:50→20:15)
--- NOTE | 2018-11-30 10:18 | NUR ---
PT Note PT jania completed, treatment initiated. Patient was able to stand and take small steps with the FWW. He was able to follow instructions well. Patient needs PT services to increase muscle strength and ROM to improve his functional mobility and gait. Addendum: 11/30/18 at 1019 by ERVIN OZUNA PT Amended: Links added.
--- NOTE | 2018-11-30 10:56 | Orthopedic Progress Note ---
Orthopedic - Progress Note Subjective Symptoms: c/o post-op hip pain Additional Comments Doing well, abduction pillow in place Objective Last 24 Hour Vital Signs Date Time Temp Pulse Resp B/P (MAP) Pulse Ox O2 Delivery O2 Flow Rate FiO2 11/30/18 09:50 75 141/58 11/30/18 09:50 75 141/58 11/30/18 08:00 97.5 75 19 141/58 (85) 99 11/30/18 04:00 99.2 75 18 164/72 (102) 98 11/30/18 00:00 98.4 65 18 149/69 (95) 100 11/29/18 21:00 Room Air 11/29/18 20:23 78 140/62 11/29/18 20:00 99.6 78 18 140/62 (88) 100 11/29/18 18:00 99.6 84 18 153/77 (102) 100 11/29/18 17:41 100.9 11/29/18 17:41 100.9 11/29/18 16:00 88 11/29/18 16:00 100.9 89 18 147/77 (100) 98 11/29/18 12:00 98.1 84 18 157/64 (95) 97 11/29/18 12:00 83 Intake and Output 11/29/18 11/30/18 19:00 07:00 Intake Total 1100 ml 675 ml Balance 1100 ml 675 ml Intake Oral 1100 ml 300 ml IV Total 375 ml # Voids 4 3 Laboratory Tests Test 11/30/18 07:37 White Blood Count 10.3 K/UL (4.8-10.8) Red Blood Count 3.87 M/UL (4.70-6.10) L Hemoglobin 9.3 G/DL (14.2-18.0) L Hematocrit 29.6 % (42.0-52.0) L Mean Corpuscular Volume 76 FL (80-99) L Mean Corpuscular Hemoglobin 24.1 PG (27.0-31.0) L Mean Corpuscular Hemoglobin Concent 31.5 G/DL (32.0-36.0) L Red Cell Distribution Width 13.3 % (11.6-14.8) Platelet Count 161 K/UL (150-450) Mean Platelet Volume 7.4 FL (6.5-10.1) Neutrophils (%) (Auto) 72.1 % (45.0-75.0) Lymphocytes (%) (Auto) 13.1 % (20.0-45.0) L Monocytes (%) (Auto) 11.9 % (1.0-10.0) H Eosinophils (%) (Auto) 0.7 % (0.0-3.0) Basophils (%) (Auto) 2.2 % (0.0-2.0) H Sodium Level 136 MMOL/L (136-145) Potassium Level 4.1 MMOL/L (3.5-5.1) Chloride Level 102 MMOL/L (98-107) Carbon Dioxide Level 30 MMOL/L (21-32) Anion Gap 4 mmol/L (5-15) L Blood Urea Nitrogen 17 mg/dL (7-18) Creatinine 1.0 MG/DL (0.55-1.30) Estimat Glomerular Filtration Rate mL/min (>60) Glucose Level 119 MG/DL (74-106) H Calcium Level 8.8 MG/DL (8.5-10.1) Wound: clean, dry, intact Drains: none Neuro Status: normal Vascular Status: normal Plan Plan: PT, pain management, discharge plan Additional Comments Follow up with me in 2 weeks Billy Torres MD Nov 30, 2018 10:56
--- NOTE | 2018-11-30 11:30 | NUR ---
NURSE NOTES: Called RT for Incentive Spirometer.
[2018-11-30 12:00] VITALS: BP 142/70
--- NOTE | 2018-11-30 13:40 | NUR ---
NURSE NOTES: Right hip dressing changed as ordered. Right hip dermabond noted, no redness, swelling or drainage. Afebrile. Applied dry sterile dressing (4x4) and secured with large tegederm. Will continue to monitor.
--- NOTE | 2018-11-30 13:54 | Cardiac Electrophysiology PN ---
Assessment/Plan Assessment/Plan 1. Hypertension. On metoprolol 25 mg b.i.d. and amlodipine 5 mg daily. 2. History of paroxysmal atrial fibrillation. The patient was in sinus rhythm on previous admission, off anticoagulation.On Metoprolol 3. Troponin leak. The patient currently denies any chest pain. Echocardiogram showed normal left ventricular systolic function. The patient had refused cardiac catheterization last visit notes. 4. History of GI bleeding. 5. History of dementia. 6. Status post fall and hip fracture. The patient does not have any chest pain. Echocardiogram showed normal left ventricular systolic function. Tolerated the ORIF well. Subjective Subjective S/P Right hip hemiarthroplasty. No CP or SOB. Transferred to [facility] Objective Last 24 Hour Vital Signs Date Time Temp Pulse Resp B/P (MAP) Pulse Ox O2 Delivery O2 Flow Rate FiO2 11/30/18 12:00 98.9 81 18 142/70 (94) 97 11/30/18 09:50 75 141/58 11/30/18 09:50 75 141/58 11/30/18 09:00 Room Air 11/30/18 08:00 97.5 75 19 141/58 (85) 99 11/30/18 04:00 99.2 75 18 164/72 (102) 98 11/30/18 00:00 98.4 65 18 149/69 (95) 100 11/29/18 21:00 Room Air 11/29/18 20:23 78 140/62 11/29/18 20:00 99.6 78 18 140/62 (88) 100 11/29/18 18:00 99.6 84 18 153/77 (102) 100 11/29/18 17:41 100.9 11/29/18 17:41 100.9 11/29/18 16:00 88 11/29/18 16:00 100.9 89 18 147/77 (100) 98 Intake and Output 11/29/18 11/30/18 19:00 07:00 Intake Total 1100 ml 675 ml Balance 1100 ml 675 ml Intake Oral 1100 ml 300 ml IV Total 375 ml # Voids 4 3 Laboratory Tests Test 11/30/18 07:37 White Blood Count 10.3 K/UL (4.8-10.8) Red Blood Count 3.87 M/UL (4.70-6.10) L Hemoglobin 9.3 G/DL (14.2-18.0) L Hematocrit 29.6 % (42.0-52.0) L Mean Corpuscular Volume 76 FL (80-99) L Mean Corpuscular Hemoglobin 24.1 PG (27.0-31.0) L Mean Corpuscular Hemoglobin Concent 31.5 G/DL (32.0-36.0) L Red Cell Distribution Width 13.3 % (11.6-14.8) Platelet Count 161 K/UL (150-450) Mean Platelet Volume 7.4 FL (6.5-10.1) Neutrophils (%) (Auto) 72.1 % (45.0-75.0) Lymphocytes (%) (Auto) 13.1 % (20.0-45.0) L Monocytes (%) (Auto) 11.9 % (1.0-10.0) H Eosinophils (%) (Auto) 0.7 % (0.0-3.0) Basophils (%) (Auto) 2.2 % (0.0-2.0) H Sodium Level 136 MMOL/L (136-145) Potassium Level 4.1 MMOL/L (3.5-5.1) Chloride Level 102 MMOL/L (98-107) Carbon Dioxide Level 30 MMOL/L (21-32) Anion Gap 4 mmol/L (5-15) L Blood Urea Nitrogen 17 mg/dL (7-18) Creatinine 1.0 MG/DL (0.55-1.30) Estimat Glomerular Filtration Rate mL/min (>60) Glucose Level 119 MG/DL (74-106) H Calcium Level 8.8 MG/DL (8.5-10.1) Objective HEAD AND NECK: No JVD. LUNGS: Coarse rhonchi CARDIOVASCULAR: Irregularly irregular. S1 and S2 with no gallop or murmur. ABDOMEN: Soft. EXTREMITIES: No pitting edema.S/P Hip surgery Mitch Irwin MD Nov 30, 2018 13:54
--- NOTE | 2018-11-30 14:31 | NUR ---
NURSE NOTES: Followed up with RT again for Incentive Spirometer.
--- NOTE | 2018-11-30 14:37 | Pulmonology Progress Note ---
Assessment/Plan Problems: (1) Hip fracture, right (2) Protein-calorie malnutrition, severe (3) Advanced dementia (4) ATN (acute tubular necrosis) Assessment/Plan tolerated surgery very well heart rate controlled symptomatic treatment check electrolytes dvt prophylaxis pain management. med/surg Subjective ROS Limited/Unobtainable: No Constitutional: Reports: no symptoms HEENT: Repors: no symptoms Allergies: Coded Allergies: PENICILLINS (Verified Allergy, Unknown, 01/30/16) Uncoded Allergies: PENICLLINS (Allergy, Unknown, 10/19/18) Objective Last 24 Hour Vital Signs Date Time Temp Pulse Resp B/P (MAP) Pulse Ox O2 Delivery O2 Flow Rate FiO2 11/30/18 12:00 98.9 81 18 142/70 (94) 97 11/30/18 09:50 75 141/58 11/30/18 09:50 75 141/58 11/30/18 09:00 Room Air 11/30/18 08:00 97.5 75 19 141/58 (85) 99 11/30/18 04:00 99.2 75 18 164/72 (102) 98 11/30/18 00:00 98.4 65 18 149/69 (95) 100 11/29/18 21:00 Room Air 11/29/18 20:23 78 140/62 11/29/18 20:00 99.6 78 18 140/62 (88) 100 11/29/18 18:00 99.6 84 18 153/77 (102) 100 11/29/18 17:41 100.9 11/29/18 17:41 100.9 11/29/18 16:00 88 11/29/18 16:00 100.9 89 18 147/77 (100) 98 Intake and Output 11/29/18 11/30/18 19:00 07:00 Intake Total 1100 ml 675 ml Balance 1100 ml 675 ml Intake Oral 1100 ml 300 ml IV Total 375 ml # Voids 4 3 Objective General Appearance: WD/WN HEENT: normocephalic, atraumatic Respiratory/Chest: chest wall non-tender, crackles/rales Cardiovascular: normal peripheral pulses, arrhythmia Abdomen: normal bowel sounds, soft, non tender Genitourinary: normal external genitalia Extremities: no clubbing Skin: no rash, no ulcers 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 Laboratory Tests 11/30/18 07:37: White Blood Count 10.3, Red Blood Count 3.87L, Hemoglobin 9.3L, Hematocrit 29.6L , Mean Corpuscular Volume 76L, Mean Corpuscular Hemoglobin 24.1L, Mean Corpuscular Hemoglobin Concent 31.5L, Red Cell Distribution Width 13.3, Platelet Count 161, Mean Platelet Volume 7.4, Neutrophils (%) (Auto) 72.1, Lymphocytes (%) (Auto) 13.1L, Monocytes (%) (Auto) 11.9H, Eosinophils (%) (Auto ) 0.7, Basophils (%) (Auto) 2.2H, Sodium Level 136, Potassium Level 4.1, Chloride Level 102, Carbon Dioxide Level 30, Anion Gap 4L, Blood Urea Nitrogen 17, Creatinine 1.0, Estimat Glomerular Filtration Rate , Glucose Level 119H, Calcium Level 8.8 Current Medications Medications (Trade) Dose Ordered Sig/Lea Route PRN Reason Start Time Stop Time Status Last Admin Dose Admin Acetaminophen (Tylenol) 650 mg Q4H PRN ORAL Mild Pain (Pain Scale 1-3) 11/29/18 19:00 12/28/18 18:59 Acetaminophen (Tylenol) 650 mg Q4H PRN ORAL temp>100 11/29/18 19:00 12/28/18 18:59 Acetaminophen/ Hydrocodone Bitart ([place] 7.5/325) 1 tab Q4H PRN ORAL Moderate Pain (Pain Scale 4-6) 11/29/18 19:00 12/05/18 18:59 11/30/18 09:45 Al Hydroxide/Mg Hydroxide (Mylanta II) 30 ml Q6H PRN ORAL dyspepsia 11/29/18 19:00 12/26/18 18:59 Amlodipine Besylate (Norvasc) 5 mg DAILY ORAL 11/30/18 09:00 12/27/18 08:59 11/30/18 09:50 Bisacodyl (Dulcolax) 10 mg Q12H PRN RECTAL Constipation 11/29/18 19:00 12/28/18 18:59 Citalopram Hydrobromide (celeXA) 30 mg DAILY ORAL 11/30/18 09:00 12/27/18 08:59 11/30/18 09:48 Dextrose (Dextrose 50%) 25 ml Q30M PRN IV Hypoglycemia 11/29/18 19:00 12/26/18 16:29 Dextrose (Dextrose 50%) 50 ml Q30M PRN IV Hypoglycemia 11/29/18 19:00 12/26/18 16:29 Dextrose/ Electrolytes 1,000 ml @ 75 mls/hr [id number] IV 11/29/18 18:45 12/28/18 09:59 11/30/18 14:06 Docusate Sodium (Colace) 100 mg THREE TIMES A DAY ORAL 11/29/18 19:30 12/29/18 19:29 11/30/18 13:08 Enoxaparin Sodium (Lovenox) 40 mg DAILY SUBQ 11/30/18 09:00 12/08/18 08:59 11/30/18 09:43 Ferrous Sulfate (Feosol) 325 mg THREE TIMES A DAY ORAL 11/29/18 19:30 12/29/18 19:29 11/30/18 13:09 Hydromorphone HCl (Dilaudid) 1 mg Q4H PRN SUBQ Severe Pain (Pain Scale 7-10) 11/29/18 21:45 12/05/18 09:32 Lorazepam (Ativan 2mg/ml 1ml) 0.5 mg Q4H PRN IV For Anxiety 11/29/18 19:00 12/05/18 18:59 Memantine (Namenda) 5 mg Q12HR ORAL 11/29/18 21:00 12/29/18 20:59 11/30/18 09:48 Metoprolol Tartrate (Lopressor) 25 mg Q12HR ORAL 11/29/18 21:00 12/29/18 20:59 11/30/18 09:50 Ondansetron HCl (Zofran) 4 mg Q6H PRN IVP Nausea & Vomiting 11/29/18 19:00 12/28/18 18:59 Polyethylene Glycol (Miralax) 17 gm HSPRN PRN ORAL Constipation 11/29/18 21:00 12/29/18 20:59 11/29/18 20:23 Quetiapine Fumarate (SEROquel) 50 mg DAILY ORAL 11/30/18 09:00 12/27/18 08:59 11/30/18 09:49 Zolpidem Tartrate (Ambien) 5 mg HSPRN PRN ORAL Insomnia 11/30/18 21:00 12/03/18 20:59 Linda Prater MD Nov 30, 2018 14:37
--- NOTE | 2018-11-30 15:25 | NUR ---
PT Note Attempted to see patient for PM treatment but patient appears very tired and sleepy. Will hold off PT this PM and check again in AM.
[2018-11-30 16:00] VITALS: BP 153/75
--- NOTE | 2018-11-30 17:00 | Progress Note ---
DATE: 11/30/2018 SUBJECTIVE: This is an 83-year-old male patient. Continued to be confused and disorganized. He continued to have some mood lability. He has got some mood lability, confusion. altered mental status, confusion, depression worsened by stress of his medical illness. That is why, his attending has requested daily psychiatric consultation. MENTAL STATUS EXAMINATION: This is an 83-year-old male. Appearance is disheveled. Attitude, irritable and agitated. Affect, guarded and restricted. Intellect poor. Mood depressed and anxious. Motor activity, psychomotor agitation. Attention span is poor. Orientation x2. Speech is low volume and slurred. Thought process disorganized and illogical. Insight and judgment is poor. DIAGNOSIS: Major depression with psychotic features, rule out dementia with psychosis. PLAN: Treat him with Seroquel 50 mg p.o. daily, Celexa 20 mg daily, Namenda 5 mg twice a day, Ativan 0.5 mg every 4 hours p.r.n. anxiety and provide him with 20 minutes of cognitive behavioral therapy to help him identify his automatic negative thoughts help him to convert those negative thoughts to more positive thoughts to reduce depression, anxiety, and mood lability and help him have more adaptive behavior pattern. Chart is reviewed and discussed with staff. Seen and assessed in his room. Ashley Flood M.D. DR: ANDIE JOB#: [id number] CC:
--- NOTE | 2018-11-30 19:30 | NUR ---
NURSE NOTES: Pt lying in bed w/bed in lowest position and call light within reach. Pt A&Ox1, VSS, and in no apparent distress at this time. IV site intact/asymptomatic w/IVF @ 75 ml/hr; surgical dressing C/D/I; and abduction pillow in place. Pt denies pain at this time. Will continue to monitor.
--- NOTE | 2018-11-30 19:35 | NUR ---
HAND-OFF: Report given to Arnoldo SAEED.
[2018-11-30 20:00] VITALS: BP 153/65
--- NOTE | 2018-11-30 20:30 | NUR ---
NURSE NOTES: Pt irritable, confused, and refusing to take PO meds and spitting them out; implemented cooling measures for fever of 100.6. Notified MD and obtained order for swallow eval. Will continue to monitor.
[2018-11-30] MEDS ORDERED: Zolpidem 5mg tab ORAL PRN (21:00)
[2018-12-01] VITALS: BP 156/64
[2018-12-01] MEDS: D5 1/2NS w/KCl 20mEq 1,000 ML IV SCH (03:30)
[2018-12-01 04:00] VITALS: BP 162/66
[2018-12-01 06:58] LABS: BASOPHILS % (AUTO) 2.2 % (0.0-2.0); EOSINOPHILS % (AUTO) 0.6 % (0.0-3.0); HEMATOCRIT 30.5 % (42.0-52.0); HEMOGLOBIN 9.5 G/DL (14.2-18.0); LYMPHOCYTES % (AUTO) 12.4 % (20.0-45.0); MEAN CORPUSCULAR VOLUME 77 FL (80-99); MONOCYTES % (AUTO) 10.8 % (1.0-10.0); PLATELET COUNT 209 K/UL (150-450); RED BLOOD COUNT 3.97 M/UL (4.70-6.10); RED CELL DISTRIBUTION WIDTH 13.4 % (11.6-14.8); WHITE BLOOD COUNT 9.5 K/UL (4.8-10.8)
[2018-12-01 07:08] LABS: ANION GAP 5 mmol/L (5-15); BLOOD UREA NITROGEN 13 mg/dL (7-18); CALCIUM 8.7 MG/DL (8.5-10.1); CARBON DIOXIDE 31 MMOL/L (21-32); CHLORIDE 102 MMOL/L (98-107); CREATININE 1.1 MG/DL (0.55-1.30); POTASSIUM 4.5 MMOL/L (3.5-5.1); SODIUM 138 MMOL/L (136-145)
--- NOTE | 2018-12-01 07:30 | NUR ---
HAND-OFF: Report given to Lana Cruz RN.
--- NOTE | 2018-12-01 07:51 | NUR ---
NURSE NOTES: Received report from CHRISTOPHE Mclaughlin. Rounding done with outgoing nurse. Patient a/o x 1 lying on the bed. Denies any pain at this time. Right hip surgical site dressing is dry and intact. Assisted having breakfast and pt started eating by himself. Bed in lowest position, call light within reach. Will continue to monitor.
[2018-12-01 08:00] VITALS: BP 157/61
[2018-12-01] MEDS: Citalopram Hydrobromide 10mg Tab ORAL SCH (08:31)
[2018-12-01] MEDS: Memantine 5 MG TAB ORAL SCH (08:32)
[2018-12-01] MEDS: Docusate 100mg cap ORAL SCH ×2 (08:32→12:24)
[2018-12-01] MEDS: Metoprolol 25mg tab ORAL SCH (08:32)
[2018-12-01] MEDS: Enoxaparin 40mg Inj SUBQ SCH (08:33)
--- NOTE | 2018-12-01 09:27 | General Progress Note ---
Assessment/Plan Problem List: (1) ATN (acute tubular necrosis) ICD Codes: N17.0 - Acute kidney failure with tubular necrosis SNOMED: 46299655 (2) Hip fracture, right ICD Codes: S72.001A - Fracture of unspecified part of neck of right femur, initial encounter for closed fracture SNOMED: 520158863 Qualifiers: Qualified Codes: S72.001A - Fracture of unspecified part of neck of right femur, initial encounter for closed fracture (3) Protein-calorie malnutrition, severe ICD Codes: E43 - Unspecified severe protein-calorie malnutrition SNOMED: 554097720, 321132543, 190385489 (4) Advanced dementia ICD Codes: F03.90 - Unspecified dementia without behavioral disturbance SNOMED: 30481334 Status: stable, progressing Assessment/Plan: pt diet pain control cbc bmp am aru eval Subjective Constitutional: Reports: weakness Allergies: Coded Allergies: PENICILLINS (Verified Allergy, Unknown, 01/30/16) Uncoded Allergies: PENICLLINS (Allergy, Unknown, 10/19/18) All Systems: reviewed and negative except above Subjective calm in bed Objective Last 24 Hour Vital Signs Date Time Temp Pulse Resp B/P (MAP) Pulse Ox O2 Delivery O2 Flow Rate FiO2 12/01/18 08:32 79 157/61 12/01/18 08:31 79 157/61 12/01/18 08:00 99.2 79 20 157/61 (93) 98 12/01/18 04:00 99.4 79 18 162/66 (98) 97 12/01/18 00:00 99.8 73 18 156/64 (94) 98 11/30/18 21:00 Room Air 11/30/18 20:15 81 153/65 11/30/18 20:00 100.6 81 18 153/65 (94) 96 11/30/18 16:00 98.6 82 19 153/75 (101) 99 11/30/18 16:00 98.6 82 19 153/75 (101) 99 11/30/18 12:00 98.9 81 18 142/70 (94) 97 11/30/18 09:50 75 141/58 11/30/18 09:50 75 141/58 Intake and Output 11/30/18 12/01/18 18:59 06:59 Intake Total 945 ml 787.5 ml Balance 945 ml 787.5 ml Intake Oral 120 ml IV Total 825 ml 787.5 ml # Voids 1 2 Laboratory Tests 12/01/18 06:20: White Blood Count 9.5, Red Blood Count 3.97L, Hemoglobin 9.5L, Hematocrit 30.5L , Mean Corpuscular Volume 77L, Mean Corpuscular Hemoglobin 23.8L, Mean Corpuscular Hemoglobin Concent 31.1L, Red Cell Distribution Width 13.4, Platelet Count 209, Mean Platelet Volume 7.7, Neutrophils (%) (Auto) 74.0, Lymphocytes (%) (Auto) 12.4L, Monocytes (%) (Auto) 10.8H, Eosinophils (%) (Auto ) 0.6, Basophils (%) (Auto) 2.2H, Sodium Level 138, Potassium Level 4.5, Chloride Level 102, Carbon Dioxide Level 31, Anion Gap 5, Blood Urea Nitrogen 13 , Creatinine 1.1, Estimat Glomerular Filtration Rate , Glucose Level 116H, Calcium Level 8.7 Height (Feet): 5 Height (Inches): 9.00 Weight (Pounds): 169 General Appearance: lethargic EENT: normal ENT inspection Neck: non-tender, normal alignment, supple Cardiovascular: normal peripheral pulses, normal rate, regular rhythm Respiratory/Chest: chest wall non-tender, lungs clear, normal breath sounds Abdomen: normal bowel sounds, non tender, soft Extremities: normal inspection Edema: no edema noted Arm (L), no edema noted Arm (R), no edema noted Leg (L), no edema noted Leg (R), no edema noted Pedal (L), no edema noted Pedal (R), no edema noted Generalized Neurologic: responsive, motor weakness Skin: normal pigmentation, warm/dry Mina Garcia DO Dec 01, 2018 09:27
[2018-12-01 12:00] VITALS: BP 118/68
--- NOTE | 2018-12-01 12:09 | NUR ---
DISCHARGE PLANNING Discharge order noted Patient has been referred to [facility] Await Acceptance and Room Number
--- NOTE | 2018-12-01 12:51 | NUR ---
NURSE NOTES: Patient did not have BM for 1 wk. Bisacodyl suppository was given in the morning but did not work. Dr. Garcia was notified and ordered fleet enema BID PRN for constipation. Noted and carried out.
[2018-12-01] MEDS ORDERED: Fleet's Enema 133ml RECTAL PRN (13:00)
--- NOTE | 2018-12-01 13:00 | Pulmonology Progress Note ---
Assessment/Plan Problems: (1) Hip fracture, right (2) Protein-calorie malnutrition, severe (3) Advanced dementia (4) ATN (acute tubular necrosis) Assessment/Plan no new complains all reviewed heart rate controlled symptomatic treatment check electrolytes dvt prophylaxis pain management. med/surg Subjective ROS Limited/Unobtainable: No Allergies: Coded Allergies: PENICILLINS (Verified Allergy, Unknown, 01/30/16) Uncoded Allergies: PENICLLINS (Allergy, Unknown, 10/19/18) Objective Last 24 Hour Vital Signs Date Time Temp Pulse Resp B/P (MAP) Pulse Ox O2 Delivery O2 Flow Rate FiO2 12/01/18 12:00 97.9 60 20 118/68 (85) 98 12/01/18 09:00 Room Air 12/01/18 08:32 79 157/61 12/01/18 08:31 79 157/61 12/01/18 08:00 99.2 79 20 157/61 (93) 98 12/01/18 04:00 99.4 79 18 162/66 (98) 97 12/01/18 00:00 99.8 73 18 156/64 (94) 98 11/30/18 21:00 Room Air 11/30/18 20:15 81 153/65 11/30/18 20:00 100.6 81 18 153/65 (94) 96 11/30/18 16:00 98.6 82 19 153/75 (101) 99 11/30/18 16:00 98.6 82 19 153/75 (101) 99 Intake and Output 11/30/18 12/01/18 19:00 07:00 Intake Total 870 ml 787.5 ml Balance 870 ml 787.5 ml Intake Oral 120 ml IV Total 750 ml 787.5 ml # Voids 1 2 Objective General Appearance: WD/WN HEENT: normocephalic, atraumatic Respiratory/Chest: chest wall non-tender, crackles/rales Cardiovascular: normal peripheral pulses, arrhythmia Abdomen: normal bowel sounds, soft, non tender Genitourinary: normal external genitalia Extremities: no clubbing Skin: no rash, no ulcers 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 Laboratory Tests 12/01/18 06:20: White Blood Count 9.5, Red Blood Count 3.97L, Hemoglobin 9.5L, Hematocrit 30.5L , Mean Corpuscular Volume 77L, Mean Corpuscular Hemoglobin 23.8L, Mean Corpuscular Hemoglobin Concent 31.1L, Red Cell Distribution Width 13.4, Platelet Count 209, Mean Platelet Volume 7.7, Neutrophils (%) (Auto) 74.0, Lymphocytes (%) (Auto) 12.4L, Monocytes (%) (Auto) 10.8H, Eosinophils (%) (Auto ) 0.6, Basophils (%) (Auto) 2.2H, Sodium Level 138, Potassium Level 4.5, Chloride Level 102, Carbon Dioxide Level 31, Anion Gap 5, Blood Urea Nitrogen 13 , Creatinine 1.1, Estimat Glomerular Filtration Rate , Glucose Level 116H, Calcium Level 8.7 Current Medications Medications (Trade) Dose Ordered Sig/Lea Route PRN Reason Start Time Stop Time Status Last Admin Dose Admin Acetaminophen (Tylenol) 650 mg Q4H PRN ORAL Mild Pain (Pain Scale 1-3) 11/29/18 19:00 12/28/18 18:59 12/01/18 08:32 Acetaminophen (Tylenol) 650 mg Q4H PRN ORAL temp>100 11/29/18 19:00 12/28/18 18:59 Acetaminophen/ Hydrocodone Bitart ([place] 7.5/325) 1 tab Q4H PRN ORAL Moderate Pain (Pain Scale 4-6) 11/29/18 19:00 12/05/18 18:59 11/30/18 09:45 Al Hydroxide/Mg Hydroxide (Mylanta II) 30 ml Q6H PRN ORAL dyspepsia 11/29/18 19:00 12/26/18 18:59 Amlodipine Besylate (Norvasc) 5 mg DAILY ORAL 11/30/18 09:00 12/27/18 08:59 12/01/18 08:31 Bisacodyl (Dulcolax) 10 mg Q12H PRN RECTAL Constipation 11/29/18 19:00 12/28/18 18:59 12/01/18 09:52 Citalopram Hydrobromide (celeXA) 30 mg DAILY ORAL 11/30/18 09:00 12/27/18 08:59 12/01/18 08:31 Dextrose (Dextrose 50%) 25 ml Q30M PRN IV Hypoglycemia 11/29/18 19:00 12/26/18 16:29 Dextrose (Dextrose 50%) 50 ml Q30M PRN IV Hypoglycemia 11/29/18 19:00 12/26/18 16:29 Dextrose/ Electrolytes 1,000 ml @ 75 mls/hr [id number] IV 11/29/18 18:45 12/28/18 09:59 12/01/18 03:30 Docusate Sodium (Colace) 100 mg THREE TIMES A DAY ORAL 11/29/18 19:30 12/29/18 19:29 12/01/18 12:24 Enoxaparin Sodium (Lovenox) 40 mg DAILY SUBQ 11/30/18 09:00 12/08/18 08:59 12/01/18 08:33 Ferrous Sulfate (Feosol) 325 mg THREE TIMES A DAY ORAL 11/29/18 19:30 12/29/18 19:29 12/01/18 12:24 Hydromorphone HCl (Dilaudid) 1 mg Q4H PRN SUBQ Severe Pain (Pain Scale 7-10) 11/29/18 21:45 12/05/18 09:32 Lorazepam (Ativan 2mg/ml 1ml) 0.5 mg Q4H PRN IV For Anxiety 11/29/18 19:00 12/05/18 18:59 Memantine (Namenda) 5 mg Q12HR ORAL 11/29/18 21:00 12/29/18 20:59 12/01/18 08:32 Metoprolol Tartrate (Lopressor) 25 mg Q12HR ORAL 11/29/18 21:00 12/29/18 20:59 12/01/18 08:32 Ondansetron HCl (Zofran) 4 mg Q6H PRN IVP Nausea & Vomiting 11/29/18 19:00 12/28/18 18:59 Polyethylene Glycol (Miralax) 17 gm HSPRN PRN ORAL Constipation 11/29/18 21:00 12/29/18 20:59 11/29/18 20:23 Quetiapine Fumarate (SEROquel) 50 mg DAILY ORAL 11/30/18 09:00 12/27/18 08:59 12/01/18 08:31 Sodium Phosphate (Fleet's Sodium Phosl Enema) 133 ml BIDPRN PRN RECTAL Constipation 12/01/18 13:00 12/31/18 12:59 Zolpidem Tartrate (Ambien) 5 mg HSPRN PRN ORAL Insomnia 11/30/18 21:00 12/03/18 20:59 Linda Prater MD Dec 01, 2018 13:00
--- NOTE | 2018-12-01 13:27 | NUR ---
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 NO POLST/AD REGARDING TF. 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 [facility] ALSO IN 2017 HAD MOD BARIUM SWALLOW STUDY AT [facility] AND NEEDED TO HAVE SOFT FOOD BUT OK WITH THIN LIQUIDS PER HIS DTR. NOW ON CLEAR LIQUIDS WILL GO TO FULL LIQUID PER RN THEN DIET [employer] SALES ENGINEER RECOMMENDS. PER DTR. NEEDS TO AVOID CAFFEINE, AND DRY CRUMBLY FOODS. AT NIGHT HAS ISSUES WITH FOOD GETS STUCK AND COUGHS ?GERD REFLUX AND ? IF HE DOESN'T DRINK ENOUGH LIQUIDS. PER PT OCCASIONALLY 1 X PER DAY OR LESS HE WILL COUGH ON THIN LIQUIDS AND HE WOULD PREFER NOT TO DRINK THICK LIQUIDS NOW. HE ALSO TENDS TO NOT DRINK ENOUGH LIQUIDS SO MAY DRINK LESS OF THICK LIQUIDS. ALERT, VOICE IS SOFT BUT CLEAR AND ABLE TO CONVEY BASIC NEEDS. INITIAL IMPRESSIONS: MILD TO POSS MOD OROPHARYNGEAL DYSPHAGIA WITH INCREASED OROPHARYNGEAL TRANSIT TIMES. GROSSLY FUNCTIONAL WITH PUREED TSP W/O OVERT ASP.. SLOWER CHEWING (MILD-MOD INCREASE IN ORAL PREP AND OP TRANSIT TIMES) WITH MASTICATED SOLIDS WITH GROSSLY FUNCTIONAL SWALLOW NO OVERT ASP. GROSSLY FUNCTIONAL WITH THIN LIQUIDS VIA STRAW (3 OZ SAM SWALLOW PROTOCOL) W/O OVERT ASP HAS SILENT ASP RISK (GIVEN CVAS/DEMENTIA HX) BUT LUNGS ARE CLEAR NOW AND HAS BEEN TAKING CLEAR LIQUIDS. VARIABLE INTAKE 25/50/100/REFUSED (CLEAR LIQUIDS MOSTLY) RECOMMENDATIONS: AFTER CLEARED BY MD FROM FULL LIQUID DIET, UPGRADE TO [facility] SOFT FINELY CHOPPED DIET AND THIN LIQUIDS WITH POSTED ASP AND REFLUX PREC AND ONE TO ONE FEEDING. SEND HIGH DAMIEN SUP AND DIET TYPE PER RD (HAD ELOSIA AT [place] BUT DTR SAID HE DID NOT NEED THAT). WAS ON REG TYPE AT [facility] [place]. EDUCATED/TRAINED STAFF IN POSTED ASP AND REFLUX PRECAUTIONS. D/W RN, PT, AND LEFT MESSAGE WITH DR NEELY. Addendum: 12/01/18 at 1330 by IMER GEORGE [employer] SALES ENGINEER CORRECTION, ORDER FROM DR NEELY NOT DR HENDRIX Addendum: 12/01/18 at 1335 by IMER GRUBBS COMPLETE MODIFIED BARIUM SWALLOW STUDY IP OR OP IF DC, DO NOT HOLD UP DC FOR THIS STUDY (TO FURTHER ASSESS SWALLOW AND DETERMINE SILENT ASP RISK, AND ATTEMPT TRIAL TX IF NEEDS).
--- NOTE | 2018-12-01 13:41 | Cardiac Electrophysiology PN ---
Assessment/Plan Assessment/Plan 1. Hypertension. On metoprolol 25 mg b.i.d. and amlodipine 5 mg daily. 2. History of paroxysmal atrial fibrillation. The patient was in sinus rhythm on previous admission, off anticoagulation.On Metoprolol 3. Troponin leak. The patient currently denies any chest pain. Echocardiogram showed normal left ventricular systolic function. The patient had refused cardiac catheterization last visit notes. 4. History of GI bleeding. 5. History of dementia. 6. Status post fall and hip fracture. Tolerated surgery without any chest pain. Echocardiogram showed normal EF. Subjective Subjective S/P Right hip hemiarthroplasty. No CP or SOB. On NMB Objective Last 24 Hour Vital Signs Date Time Temp Pulse Resp B/P (MAP) Pulse Ox O2 Delivery O2 Flow Rate FiO2 12/01/18 12:00 97.9 60 20 118/68 (85) 98 12/01/18 09:00 Room Air 12/01/18 08:32 79 157/61 12/01/18 08:31 79 157/61 12/01/18 08:00 99.2 79 20 157/61 (93) 98 12/01/18 04:00 99.4 79 18 162/66 (98) 97 12/01/18 00:00 99.8 73 18 156/64 (94) 98 11/30/18 21:00 Room Air 11/30/18 20:15 81 153/65 11/30/18 20:00 100.6 81 18 153/65 (94) 96 11/30/18 16:00 98.6 82 19 153/75 (101) 99 11/30/18 16:00 98.6 82 19 153/75 (101) 99 Intake and Output 11/30/18 12/01/18 19:00 07:00 Intake Total 870 ml 787.5 ml Balance 870 ml 787.5 ml Intake Oral 120 ml IV Total 750 ml 787.5 ml # Voids 1 2 Laboratory Tests Test 12/01/18 06:20 White Blood Count 9.5 K/UL (4.8-10.8) Red Blood Count 3.97 M/UL (4.70-6.10) L Hemoglobin 9.5 G/DL (14.2-18.0) L Hematocrit 30.5 % (42.0-52.0) L Mean Corpuscular Volume 77 FL (80-99) L Mean Corpuscular Hemoglobin 23.8 PG (27.0-31.0) L Mean Corpuscular Hemoglobin Concent 31.1 G/DL (32.0-36.0) L Red Cell Distribution Width 13.4 % (11.6-14.8) Platelet Count 209 K/UL (150-450) Mean Platelet Volume 7.7 FL (6.5-10.1) Neutrophils (%) (Auto) 74.0 % (45.0-75.0) Lymphocytes (%) (Auto) 12.4 % (20.0-45.0) L Monocytes (%) (Auto) 10.8 % (1.0-10.0) H Eosinophils (%) (Auto) 0.6 % (0.0-3.0) Basophils (%) (Auto) 2.2 % (0.0-2.0) H Sodium Level 138 MMOL/L (136-145) Potassium Level 4.5 MMOL/L (3.5-5.1) Chloride Level 102 MMOL/L (98-107) Carbon Dioxide Level 31 MMOL/L (21-32) Anion Gap 5 mmol/L (5-15) Blood Urea Nitrogen 13 mg/dL (7-18) Creatinine 1.1 MG/DL (0.55-1.30) Estimat Glomerular Filtration Rate mL/min (>60) Glucose Level 116 MG/DL (74-106) H Calcium Level 8.7 MG/DL (8.5-10.1) Objective HEAD AND NECK: No JVD. LUNGS: Coarse rhonchi CARDIOVASCULAR: Irregularly irregular. S1 and S2 with no gallop or murmur. ABDOMEN: Soft. EXTREMITIES: No pitting edema.S/P Hip surgery Mitch Irwin MD Dec 01, 2018 13:41
--- NOTE | 2018-12-01 15:46 | NUR ---
DISCHARGE PLANNING DISCHARGE ORDER NOTED Patient is being referred to: [address] [address] Bed:424 [facility] for Nurse to Nurse report [facility] ETA for transportation: 16:45 Family notify of discharge plans, Eda Lr,
[2018-12-01 16:00] VITALS: BP 128/64
[2018-12-01] MEDS ORDERED: ACETAMINOPHEN325 M1 ORAL (16:26)
[2018-12-01] MEDS ORDERED: MYLANTA II30 ML ORAL (16:28)
[2018-12-01] MEDS ORDERED: BISACODYL10 M1 RC (16:28)
[2018-12-01] MEDS ORDERED: CELEXA20 MG ORAL (16:29)
[2018-12-01] MEDS ORDERED: D5%-1/2NS-10 MEQ/100 IV (16:32)
[2018-12-01] MEDS ORDERED: COLACE100 MG ORAL (16:33)
[2018-12-01] MEDS ORDERED: LOVENOX10 M4 SUBQ (16:33)
[2018-12-01] MEDS ORDERED: FERROUS SULFAT325 MG ORAL (16:33)
[2018-12-01] MEDS ORDERED: NORCO 7.5-3251 EACH ORAL (16:34)
[2018-12-01] MEDS ORDERED: HYDROMORPHO1 MG/1 M9 SQ (16:35)
[2018-12-01] MEDS ORDERED: LORAZEPAM0.5 MG IV (16:36)
[2018-12-01] MEDS ORDERED: FLEET ENEMA133 ML RECTAL (16:37)
[2018-12-01] MEDS ORDERED: METOPROLOL TART25 MG ORAL (16:37)
[2018-12-01] MEDS ORDERED: ZOFRAN 4 MG4 MG/2 ML IV (16:38)
[2018-12-01] MEDS ORDERED: MIRALAX17 G2 ORAL (16:38)
[2018-12-01] MEDS ORDERED: AMBIEN5 MG ORAL (16:39)
--- NOTE | 2018-12-01 16:40 | NUR ---
NURSE NOTES: Read each medication one by one Dr. Garcia ordered formerly [facility] meds including IV fluids. Noted and carried out.
--- NOTE | 2018-12-01 16:57 | NUR ---
NURSE NOTES: Called patient's daughter, Eda Lr to inform pt will be d/c to [facility] today but voice message was full so I cannot leave the message.
--- NOTE | 2018-12-01 17:10 | NUR ---
NURSE NOTES: Daughter called back and inform pt will be transferred to [facility] today.
--- NOTE | 2018-12-01 17:40 | NUR ---
NURSE NOTES: Discharge instruction was given. Belongings checked with pt. Pt unable to sign. Keep IV site S/L as MD ordered. Patient discharged with paramedics in stable condition.
--- NOTE | 2018-12-02 00:15 | Progress Note ---
DATE: 12/01/2018 SUBJECTIVE: This is an 83-year-old male patient with right hip fracture, but he continued to have some confusion, some disorganized thought process, and mood lability worsened by stress of his medical illness. That is why his attending has requested daily psychiatric consultation. He still endorses to have levels of anxiety worsened by stress of his medical illness. That is why, his attending has requested daily psychiatric consultation. MENTAL STATUS EXAMINATION: This is an 83-year-old male. Appearance is disheveled. Attitude, irritable and agitated. Affect, guarded and restricted. Intellect poor. Mood, depressed and anxious. Motor activity, psychomotor agitation. Attention span is poor. Orientation x2. Speech is low volume and slurred. Thought process, disorganized and illogical. Thought content, paranoid delusions. Insight and judgment is poor. DIAGNOSIS: Major depressive disorder, mild, recurrent with psychotic features, rule out dementia with psychosis. PLAN: Continue to treat him with medications to control his anxiety. Provide him with 20 minutes of reality-based supportive psychotherapy and encourage him . Chart reviewed. Discussed with staff. Seen and assessed at bedside. A 20 minutes of cognitive behavioral therapy provided to help the patient identify his automatic negative thoughts in order to help convert those negative thoughts to more positive thoughts to reduce depression, anxiety, mood lability. Ashley Flood M.D. DR: ANDIE JOB#: [id number] CC:
--- NOTE | 2018-12-02 10:12 | Discharge Summary ---
Discharge Summary Discharge Summary _ DATE OF ADMISSION: 11/26/2018 DATE OF DISCHARGE: 12/01/2018 DISCHARGED BY: Dr Garcia REASON FOR ADMISSION: 83 years old male with past medical history of atrial fibrillation, coronary artery disease, recent [place], dementia, brought from the [facility] facility with chief complaint of fall and right hip pain. Right hip x-ray revealed right femoral neck fracture. Patient subsequently had a CT scan of the right hip , which confirmed right femoral neck fracture. No evidence of overlying soft tissue contusion. Right hip joint degenerative changes noted. Chest x-ray revealed possible 1 cm right mid lung nodule , not evident previously. No acute process otherwise. Laboratory work-up revealed no leukocytosis , stable hemoglobin and hematocrit. Stable electrolytes and renal parameters. Albumin 3.3 Patient subsequently was admitted to medical surgical floor for surgical intervention. CONSULTANTS: protozoologist Dr. Freeman pulmonary Dr. Prater orthopedic surgery Dr. Torres psychiatrist Dr. Flood [facility] COURSE: Patient admitted to medical surgical floor. Orthopedic surgery consult was requested. Patient required surgery for right hip fracture. Roll Up Guider Operator consulted for preoperative clearance . Echocardiogram demonstrated preserved ejection fraction 55%. No evidence of left ventricular hypertrophy. No evidence of pericardial effusion. No evidence of wall motion abnormality. Right ventricular systolic pressure of 45 consistent with mild pulmonary hypertension. Patient denied chest pain. On the last visit patient declined cardiac catheterization. Patient had a history of paroxysmal atrial fibrillation , but remained in sinus rhythm and was taken off anticoagulation. Blood pressure was managed with calcium channel sandra. Beta sandra was added for better blood pressure control and also help to prevent postoperative atrial fibrillation . EKG revealed normal sinus rhythm. Roll Up Guider Operator cleared patient for surgery. Patient subsequently undergone on 11/28 right hip hemiarthroplasty. Course of recovery was uneventful. Pain management was addressed. Supportive care provided. Bowel regimen instituted. Protein supplements implemented in plan of care to improve nutritional status. DVT prophylaxis provided. Fall precaution maintained. Patient was working with physical therapist. Bedside swallow evaluation revealed mild to possibly moderate oropharyngeal dysphagia. Diet texture provided as per speech therapist recommendations with one-to-one feeding and strict aspiration/reflux precautions. Renal parameters and electrolytes were closely monitored. Electrolytes corrected as needed, nephrotoxins were avoided. Renal function remained stable Psychiatrist followed. Per psychiatrist patient had major depressive disorder with psychotic features. Psychiatric medication regimen provided as per psychiatrist. Cognitive behavioral therapy provided. Patient required further inpatient rehabilitation. Transfer was arranged to [facility] for acute rehabilitation unit . Patient was cleared for transfer. Recommended follow up with CT chest for evaluation of possible pulmonary nodule seen on CXR. FINAL DIAGNOSES: Right hip subcapital femoral neck fracture with displacement , secondary to fall Status post right hip hemiarthroplasty Hypertension History of paroxysmal atrial fibrillation Advanced dementia Major depressive disorder, mild, recurrent, with psychotic features Protein calorie malnutrition DISCHARGE MEDICATIONS: See Medication Reconciliation list. DISCHARGE INSTRUCTIONS: Patient was transferred to [facility] acute rehabilitation unit for further rehabilitation. I have been assigned to dictate discharge summary for this account. I was not involved in the patient's management. Dianelys Lucero NP Dec 02, 2018 10:12
== END 2018-12-01 17:40 | disposition short-term general hospital (02) | DRG 469 ==
LOC: EDBD 14:28 → EMR 15:10 → 3E 15:11 → EDBEDREQ 15:32 → 2E 11-28 09:14 → 3E 11-29 17:52
PROC: 0SRR0JA Replacement of Right Hip Joint, Femoral Surface with Synthetic Substitute, Uncemented, Open Approach (ICD-10-PCS; principal; 2018-11-28 13:30)
DX: S72.011A Unspecified intracapsular fracture of right femur, initial encounter for closed fracture (principal); E43 Unspecified severe protein-calorie malnutrition; N17.0 Acute kidney failure with tubular necrosis; F33.0 Major depressive disorder, recurrent, mild; W01.0XXA Fall on same level from slipping, tripping and stumbling without subsequent striking against object, initial encounter; I10 Essential (primary) hypertension; F03.90 Unspecified dementia, unspecified severity, without behavioral disturbance, psychotic disturbance, mood disturbance, and anxiety; I48.0 Paroxysmal atrial fibrillation; J44.9 Chronic obstructive pulmonary disease, unspecified; Z86.73 Personal history of transient ischemic attack (TIA), and cerebral infarction without residual deficits; Z88.0 Allergy status to penicillin; Z68.24 Body mass index [BMI] 24.0-24.9, adult
CPT/HCPCS: 36415; 71045; 72170; 80048; 80053; 84443; 85025; 85610; 85730; 86850; 86900; 86901; 87081; 93005; 93306; 96374; 99285; J2250; J2370; S0077